=== PATIENT | female | born 1955 | race African-American/Black ===

== ENCOUNTER 2017-10-11 08:22 | Inpatient (IN) | payer MEDICARE, MEDICAID ==
[~2017-10-11] VITALS: Ht 162.6 cm; Wt 54.4 kg
[~2017-10-11 08:22] MED LIST: CIPRO250 MG ORAL; HYDROCHLOROTHIA25 MG PO; HYDROCODON-ACE1 EAC5 PO; LAMICTAL25 MG ORAL; METHOCARBAMOL750 MG PO; NORCO1 E1 ORAL; QUINAPRIL HCL10 MG PO; RESTORIL7.5 MG PO; SINGULAIR10 MG PO; VENTOLIN PO
[2017-10-11] MEDS ORDERED: LR 1000ml 1,000 ML IV STA (08:25)
[2017-10-11 08:28] VITALS: BP 116/95
--- NOTE | 2017-10-11 08:31 | Emergency Room Report ---
History of Present Illness General Chief Complaint: Diarrhea Source: Patient Present Illness HPI 62-year-old female brought in by EMS from home for 3 days of watery diarrhea, about 10 episodes a day. Intermittently associated abdominal pain. No associated vomiting, nausea, fever chills. No urinary complaints. States she was hospitalized in the last week at [facility] for seizures. She did not have diarrhea at the time. Denies taking antibiotics recently. States unable to keep water or food down in the last couple days. She has dressing to wound on abdomen, states had surgery "a while ago" but not sure why. 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 Hx Cerebrovascular Accident: Yes Hx Transient Ischemic Attacks: No Hx Dementia: No Hx Alzheimer's Disease: No Hx Parkinson's Disease: No Hx Meningitis: No Hx Encephalitis: No Hx Seizures: Yes Hx Epilepsy: No Hx Multiple Sclerosis: No Hx Cerebral Palsy: No Hx Amyotrophic Lat Sclerosis: No Hx Guillian-[place] Syndrome: No Hx Paralysis: No Hx Peripheral Neuropathy: No Hx Spinal Cord Injury: No Hx Head Trauma: No Hx Traumatic Brain Injury: No Hx Memory Loss: No Hx Concentration Difficulty: No Hx Speech Problem: No Hx Tremors: No Hx Vertigo: No Hx Dizziness: No Hx Syncope: No Hx Headaches: No Hx Aphasia: No Hx Dysphasia: No Hx Numbness: No Hx Weakness: Yes Hx Fatigue: No Hx Neurologic Surgery: No Hx Brain Shunt: No Review of Systems All Other Systems: negative except mentioned in HPI Physical Exam Vital Signs Date Time Temp Pulse Resp B/P (MAP) Pulse Ox O2 Delivery O2 Flow Rate FiO2 10/11/17 08:18 97.9 66 16 101/68 99 Room Air 97.9 Sp02 EP Interpretation: reviewed, normal General Appearance: normal inspection, well appearing, no apparent distress, alert, GCS 15, non-toxic, cachetic, thin Head: normocephalic, atraumatic Eyes: bilateral eye PERRL, bilateral eye EOMI ENT: normal ENT inspection, hearing grossly normal, normal pharynx, no angioedema, normal voice, TMs + canals normal, uvula midline, moist mucus membranes Neck: normal inspection, full range of motion, supple, thyroid normal, no meningismus, no bony tend Respiratory: normal inspection, lungs clear, normal breath sounds, no rhonchi, no respiratory distress, no retraction, no accessory muscle use, no wheezing, speaking full sentences Cardiovascular #1: regular rate, rhythm, no edema, no JVD, normal capillary refill Gastrointestinal: normal inspection, normal bowel sounds, non tender, soft, no mass, no peritonitis, non-distended, no guarding, no hernia, no pulsatile mass, other - Mid abdomen, old midline laparatomy scar noted. There is an old dressing on wound with old granulation tissue from 2 separate wounds seen. No erythema or active infection noted to area. Genitourinary: no CVA tenderness Musculoskeletal: normal inspection, back normal, normal range of motion, no calf tenderness, pelvis stable, Yessica's Sign negative Neurologic: normal inspection, alert, oriented x3, responsive, information technology program manager III-XII nml as tested, motor strength/tone normal, cerebellar normal, normal gait, speech normal Psychiatric: normal inspection, judgement/insight normal, mood/affect normal, no suicidal/homicidal ideation, no delusions Skin: normal inspection, normal color, no rash Lymphatic: normal inspection, no adenopathy Medical Decision Making Diagnostic Impression: Primary Impression: Diarrhea Qualified Codes: R19.7 - Diarrhea, unspecified Additional Impressions: Weakness FTT (failure to thrive) in adult Ileus Hyponatremia ER Course VSS, afebrile Alert and oriented No recent Abx, low suspicion for Cdiff No foreign travel Labs: Significant for hyponatremia CT: No acute process. ?SB distention in RLQ at anastamosis. ?early SBO but unlikely. (Only able to do non-contrast CT as not tolerating PO contrast and unable to place IV large enough for IV contrast; patient resistant to central line placement and I think the risk of potential line infection outweighs additional value we would obtain from IV contrast) Cdiff assay pending No additional diarrhea in ED Feels better Admit for FTT, weakness Med/surg Endorsed to Dr Rice for panel admit as patient is unassigned 10am EKG Diagnostic Results Rate: normal Rhythm: NSR ST Segments: no acute changes ASA given to the pt in ED: No Rhythm Strip Diag. Results EP Interpretation: yes Rate: 90 Rhythm: NSR, other - +PVCs Last Vital Signs Date Time Temp Pulse Resp B/P (MAP) Pulse Ox O2 Delivery O2 Flow Rate FiO2 10/11/17 08:18 97.9 66 16 101/68 99 Room Air 97.9 Status: improved Disposition: ADMITTED INPATIENT Condition: Serious ERICA VILLELA M.D. Oct 11, 2017 08:31
[2017-10-11 09:31] LABS: HEMATOCRIT 43.7 % (37.0-47.0); HEMOGLOBIN 14.3 G/DL (12.0-16.0); MEAN CORPUSCULAR VOLUME 81 FL (80-99); PLATELET COUNT 514 K/UL (150-450); RED BLOOD COUNT 5.39 M/UL (4.20-5.40); RED CELL DISTRIBUTION WIDTH 12.7 % (11.6-14.8); WHITE BLOOD COUNT 11.7 K/UL (4.8-10.8)
[2017-10-11 09:33] VITALS: BP 128/81
[2017-10-11] MEDS ORDERED: UNOBMED (09:34)
[2017-10-11 09:48] LABS: ALANINE AMINOTRANSFERASE 14 U/L (12-78); ALBUMIN/GLOBULIN RATIO 0.9 (1.0-2.7); ALKALINE PHOSPHATASE 220 U/L (46-116); ASPARTATE AMINO TRANSFERASE 22 U/L (15-37); BILIRUBIN,TOTAL 0.2 MG/DL (0.2-1.0); BLOOD UREA NITROGEN 69 mg/dL (7-18); CALCIUM 6.4 MG/DL (8.5-10.1); CREATININE 4.7 MG/DL (0.55-1.30)
--- NOTE | 2017-10-11 09:50 | Diagnostic Imaging Report ---
Indication: Abdominal pain, watery diarrhea for 3 days Technique: Spiral acquisitions obtained through the abdomen and pelvis. No oral contrast utilized, per emergency room physician request No IV contrast utilized, per referring physician request.. Multiplanar reconstructions were generated. Total dose length product 408.11 mGycm. CTDIvol(s) 8.8 mGy. Dose reduction achieved using automated exposure control Comparison: Contrast CT 09/12/2012 Findings: Lack of enteric contrast limits assessment of the GI tract. There is colonic diverticulosis. There is evidence of fairly extensive prior bowel surgery, with evidence of right hemicolectomy, ileocolic anastomosis as well as a small bowel anastomosis in the right lower quadrant. The small bowel at the level of the right lower quadrant anastomosis is dilated and fluid-filled, but the remainder the small bowel is nondilated. A modest amount of fluid is seen elsewhere within the small bowel Previously demonstrated broad-based ventral hernia is no longer evident, nor is the previously demonstrated enterocutaneous fistula and inflammatory change related to the hernia. There is a modest amount of fluid within the distal colon. No free intraperitoneal gas demonstrated. No free or loculated intraperitoneal fluid. The distal esophagus, stomach, duodenum are unremarkable. Lack of IV contrast limits assessment of the solid organs. Again demonstrated are multiple gallstones. The gallbladder is mildly distended, but there is no gallbladder wall thickening and no evidence of pericholecystic inflammation. The common bile duct is mildly dilated, measuring 9 mm in diameter. No definite downstream obstructive lesion is demonstrated. No gross focal liver abnormality. The pancreatic duct is mildly ectatic. The spleen is again demonstrated to be absent, likely postsurgically, with a small accessory splenule present. The left adrenal is diffusely bulky, as previously. The right adrenal is unremarkable. The left kidney demonstrates a tiny faint parenchymal calculus in the upper pole. There is mild right hydronephrosis, but no hydroureter. The right kidney demonstrates one or more subcentimeter low-attenuation lesions which are too small to characterize. No retroperitoneal or mesenteric mass or adenopathy. No pelvic mass or adenopathy. The uterus and adnexal structures are unremarkable. Again incidentally noted is an intramuscular lipoma within the right flank musculature. There are mild degenerative spondylosis changes. The included lung bases demonstrate minimal scarring or atelectasis on the right Impression: Limited assessment of the GI tract, due to lack of enteric contrast administration Modest amount of fluid within small bowel and the distal colon, possibly related to stated clinical history of diarrhea Evidence of extensive prior bowel surgery. Small bowel distention with fluid in the right lower quadrant at an anastomotic staple line. Most likely this is physiologic related to the prior surgery, early/partial small bowel obstruction not completely excludable but deemed much less likely No acute process otherwise Cholelithiasis Mildly dilated common bile duct, without definite downstream obstructive lesion. Most likely age related, but correlation with liver function tests is recommended Evidence of prior splenectomy. 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 Other findings as noted, including right flank musculature intramuscular lipoma, mild degenerative spondylosis, minimal basilar pulmonary parenchymal scarring or atelectasis The CT scanner at [facility] is accredited by the [employer] and the scans are performed using protocols designed to limit radiation exposure to as low as reasonably achievable to attain images of sufficient resolution adequate for diagnostic evaluation.
[2017-10-11] MEDS ORDERED: OMEPRAZOLE10 M1 ORAL (09:52)
[2017-10-11] MEDS ORDERED: AMBIEN5 MG ORAL (09:52)
--- NOTE | 2017-10-11 09:52 | Diagnostic Imaging Report ---
Indication: Pain, weakness Technique: One view of the chest Comparison: 01/20/2014 Findings: The lungs are hyperinflated There is blunting of the right costophrenic sulcus, suspicious for small amount of pleural fluid. The lungs and pleural spaces are otherwise clear. The heart size is normal. The aorta is calcified Impression: Hyperinflation, likely on the basis of COPD Small right pleural effusion
[2017-10-11 09:55] LABS: ANION GAP 32 mmol/L (5-15); CHLORIDE 78 MMOL/L (98-107)
[2017-10-11 09:59] LABS: CARBON DIOXIDE 8 MMOL/L (21-32); SODIUM 118 MMOL/L (136-145)
[2017-10-11] MEDS ORDERED: Nitroglycerin Subl 0.4mg tab SL PRN (10:15)
[2017-10-11] MEDS ORDERED: Metoclopramide 10mg/2ml Inj IVP ONE (10:15)
[2017-10-11] MEDS ORDERED: Mylanta II UD 30ml ORAL PRN (10:15)
[2017-10-11] MEDS ORDERED: Metoclopramide 10mg/2ml Inj IVP PRN (10:15)
--- NOTE | 2017-10-11 10:46 | Consultation ---
Consult Note Consult Note 62-year-old female brought in by EMS from home for 3 days of watery diarrhea, about 10 episodes a day. Intermittently associated abdominal pain. No associated vomiting, nausea, fever chills. No urinary complaints. States she was hospitalized in the last week at [facility] for seizures. She did not have diarrhea at the time. Denies taking antibiotics recently. States unable to keep water or food down in the last couple days. She has dressing to wound on abdomen, states had surgery "a while ago" but not sure why. 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 Assessment/Plan Acute Renal Failure- Intractible Diarrhea Was on HCTZ and Stan inhibitor COPD Plan; Duarte- NS IV fluid 2D Echo- THANG - Urine studies- MARIELA PA Oct 11, 2017 10:46
[2017-10-11] MEDS ORDERED: D5 1/2NS 1,000 ML IV SCH (11:00)
[2017-10-11] MEDS ORDERED: D5NS 1,000 ML IV SCH (11:00)
[2017-10-11] MEDS ORDERED: LORazepam Inj 2mg/ml 1ml IV ONE (11:45)
[2017-10-11] MEDS ORDERED: Promethazine HCl 25 MG in NS 55 ML IV SCH (12:00)
[2017-10-11] MEDS ORDERED: Heparin 5000 units/ml inj SUBQ SCH ×2 (12:00→21:00)
[2017-10-11] MEDS ORDERED: Promethazine HCl 25 MG in NS 55 ML IV PRN (12:00)
[2017-10-11] MEDS ORDERED: LORazepam Inj 2mg/ml 1ml IV PRN (12:00)
[2017-10-11] MEDS: Sodium Bicarbonate 150 ML in D5W 1000ml 1,000 ML IV SCH ×2 (12:06→23:30)
[2017-10-11] MEDS: Morphine Sulfate 4mg/ml Inj IVP PRN ×2 (12:19→20:41)
[2017-10-11 13:50] VITALS: BP 117/73
--- NOTE | 2017-10-11 15:50 | Diagnostic Imaging Report ---
Indication: Abdominal pain, abnormal lipase, abnormal alkaline phosphatase, abnormal kidney function Technique: Mishra-scale and duplex images of the upper abdomen were obtained Comparison: CT scan of earlier the same day ultrasound of 01/22/2014 Findings: Gallbladder demonstrates gallstones. No wall thickening nor pericholecystic fluid Sonographic Ibanez's sign is negative. Common bile duct measures 11 mm in diameter. No intrahepatic biliary ductal dilatation. Liver demonstrates normal echogenicity, no focal abnormality. Portal vein and hepatic veins are patent. There is prominent periportal fat Pancreas is unremarkable. The spleen is surgically absent Left kidney measures 10.2 cm in length. Right kidney measures 10.2 cm length. Both kidneys demonstrate normal echogenicity. There is no hydronephrosis. There are small bilateral renal cysts . Non-aneurysmal abdominal aorta . The bladder is distended. Bladder volume calculated at 300 mL. Patient was noncommunicative, unable to follow instructions to void Impression: Cholelithiasis, also previously described Mild extra hepatic biliary ductal dilatation, also reported on recent CT scan. May be baseline for this patient but downstream obstruction not completely excludable. Correlate with liver function tests, consider MRCP if clinically indicated Distended bladder Prior splenectomy Incidental finding bilateral renal cysts
--- NOTE | 2017-10-11 15:59 | GI Initial Consult Note ---
History of Present Illness General Date patient seen: Oct 11, 2017 Time patient seen: 15:58 Reason for Hospitalization: Diarrhea Referring physician: YVONNE JERRY Reason for Consultation: DIARRHEA Present Illness HPI 62-year-old female brought in by EMS from home for 3 days of watery diarrhea, about 10 episodes a day. Intermittently associated abdominal pain. No associated vomiting, nausea, fever chills. No urinary complaints. States she was hospitalized in the last week at [facility] for seizures. She did not have diarrhea at the time. Denies taking antibiotics recently. States unable to keep water or food down in the last couple days. She has dressing to wound on abdomen, states had surgery "a while ago" but not sure why. GI consulted for persistent diarrhea. ROS limited, patient is a very poor historian. Unable to recall any past events. C/o of generalized weakness and fatigue. Is not sure if she has had any weight loss in the past month. Labs reviewed shown to have hyponatremia, possible acute renal failure, mild leukocytosis and elevated alkaline phosphatase. CT AP reviewed showed to have CBD dilation of 9mm, a follow up abdominal U/S was performed shown to have cholelithiasis, also previously described. Mild extra hepatic biliary ductal dilatation, also reported on recent CT scan. May be baseline for this patient but downstream obstruction not completely excludable. Unknown history of endoscopy / colonoscopy. 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 Hx Cerebrovascular Accident: Yes Hx Seizures: Yes Hx Weakness: Yes Home Meds Active Scripts Lamotrigine* (LAMICTAL*) 25 Mg Tab, 50 MG ORAL BIDLS, #60 TAB Prov:Yvonne Rice MD 01/23/14 Reported Medications Zolpidem Tartrate* (AMBIEN*) 5 Mg Tablet, 5 MG ORAL BEDTIME PRN for Insomnia, TAB 10/11/17 Omeprazole (OMEPRAZOLE) 10 Mg Capsule.dr, 10 MG ORAL DAILY, #30 CAP 0 Refills 10/11/17 Unable to Obtain Medications (UNABLE TO OBTAIN MEDS) 1 Ea Ea 10/11/17 Acetaminophen/Hydrocodone ([place] 7.5-325 Tablet) 1 Ea Tab, 1 TAB ORAL Q4H PRN for For Pain, #60 TAB 0 Refills 01/23/14 Albuterol Sulfate (VENTOLIN) 5 Mg/1 Ml Solution, 5 MG PO 09/12/12 Methocarbamol* (METHOCARBAMOL*) 750 Mg Tablet, 750 MG PO QHS, #20 TAB 09/12/12 Hydrochlorothiazide* (HYDROCHLOROTHIAZIDE*) 25 Mg Tablet, 25 MG PO DAILY, #30 TAB 09/12/12 Hydrocodone/Acetaminophen 7.5-500 (HYDROCODON-ACETAMINOPH 7.5-500) 1 Each Tablet , 1 EACH PO 09/12/12 Quinapril Hcl (QUINAPRIL HCL) 10 Mg Tablet, 10 MG PO 09/12/12 Temazepam* (RESTORIL*) 7.5 Mg Capsule, 7.5 MG PO QHS, #10 CAP Take 1 capsule by mouth aat bedtime. 09/12/12 Montelukast Sodium* (SINGULAIR*) 10 Mg Tablet, 10 MG PO DAILY, TAB Take one tablet by mouth daily 09/12/12 Med list reviewed/reconciled: Yes Allergies: Coded Allergies: No Known Allergies (Unverified , 09/12/12) Patient History Limited by: medical condition History Provided By: Patient, Medical Record Social History Narrative unknown Review of Systems All Other Systems: limited Physical Exam Vital Signs Date Time Temp Pulse Resp B/P (MAP) Pulse Ox O2 Delivery O2 Flow Rate FiO2 10/11/17 08:18 97.9 66 16 101/68 99 Room Air 97.9 Sp02 EP Interpretation: reviewed, normal Labs Laboratory Tests Test 10/11/17 09:10 10/11/17 10:40 White Blood Count 11.7 K/UL (4.8-10.8) H Red Blood Count 5.39 M/UL (4.20-5.40) Hemoglobin 14.3 G/DL (12.0-16.0) Hematocrit 43.7 % (37.0-47.0) Mean Corpuscular Volume 81 FL (80-99) Mean Corpuscular Hemoglobin 26.5 PG (27.0-31.0) L Mean Corpuscular Hemoglobin Concent 32.6 G/DL (32.0-36.0) Red Cell Distribution Width 12.7 % (11.6-14.8) Platelet Count 514 K/UL (150-450) H Mean Platelet Volume 6.1 FL (6.5-10.1) L Neutrophils (%) (Auto) % (45.0-75.0) Lymphocytes (%) (Auto) % (20.0-45.0) Monocytes (%) (Auto) % (1.0-10.0) Eosinophils (%) (Auto) % (0.0-3.0) Basophils (%) (Auto) % (0.0-2.0) Differential Total Cells Counted 100 Neutrophils % (Manual) 90 % (45-75) H Lymphocytes % (Manual) 7 % (20-45) L Monocytes % (Manual) 3 % (1-10) Eosinophils % (Manual) 0 % (0-3) Basophils % (Manual) 0 % (0-2) Band Neutrophils 0 % (0-8) Platelet Estimate Adequate Platelet Morphology Normal Red Blood Cell Morphology Normal Sodium Level 118 MMOL/L (136-145) *L Potassium Level 4.0 MMOL/L (3.5-5.1) Chloride Level 78 MMOL/L (98-107) L Carbon Dioxide Level 8 MMOL/L (21-32) *L Anion Gap 32 mmol/L (5-15) H Blood Urea Nitrogen 69 mg/dL (7-18) H Creatinine 4.7 MG/DL (0.55-1.30) H Estimat Glomerular Filtration Rate 11.4 mL/min (>60) Glucose Level 121 MG/DL (74-106) H Osmolality 270 mOsm/kg (297-317) L Calcium Level 6.4 MG/DL (8.5-10.1) L Total Bilirubin 0.2 MG/DL (0.2-1.0) Aspartate Amino Transf (AST/SGOT) 22 U/L (15-37) Alanine Aminotransferase (ALT/SGPT) 14 U/L (12-78) Alkaline Phosphatase 220 U/L (46-116) H Troponin I 0.006 ng/mL (0.000-0.056) C-Reactive Protein, Quantitative 1.4 mg/dL (0.00-0.90) H Total Protein 8.7 G/DL (6.4-8.2) H Albumin 4.0 G/DL (3.4-5.0) Globulin 4.7 g/dL Albumin/Globulin Ratio 0.9 (1.0-2.7) L Lipase 117 U/L (73-393) Free Thyroxine 1.85 NG/DL (0.76-1.46) H Free Triiodothyronine 2.8 pg/mL (2.3-4.2) Cortisol Pending Arterial Blood pH 7.142 (7.350-7.450) Arterial Blood Partial Pressure CO2 24.0 mmHg (35.0-45.0) *L Arterial Blood Partial Pressure O2 105.6 mmHg (75.0-100.0) H Arterial Blood HCO3 8.0 mmol/L (22.0-26.0) L Arterial Blood Oxygen Saturation 97.4 % (92.0-98.0) Arterial Blood Base Excess -19.2 Satya Test Positive General Appearance: well appearing, no apparent distress, alert, thin Head: normocephalic EENT: PERRL/EOMI, normal ENT inspection Neck: supple Respiratory: normal breath sounds, no respiratory distress Cardiovascular: normal rate Gastrointestinal: normal inspection, non tender, soft, normal bowel sounds, non -distended Rectal: deferred Genitourinary: no CVA tenderness Musculoskeletal: normal inspection, back normal Neurologic: alert, responsive Skin: normal inspection, normal color, no rash, warm/dry, palpation normal, well hydrated Lymphatic: normal inspection, no adenopathy Current Medications Current Medications Medications (Trade) Dose Ordered Sig/Martha Route PRN Reason Start Time Stop Time Status Last Admin Dose Admin Acetaminophen (Tylenol) 650 mg Q4H PRN ORAL fever 10/11/17 10:15 11/10/17 10:14 Dextrose (Dextrose 50%) 25 ml STAT PRN IV Hypoglycemia 10/11/17 11:30 11/10/17 11:29 Dextrose (Dextrose 50%) 50 ml STAT PRN IV Hypoglycemia 10/11/17 10:15 11/10/17 10:14 Diphenhydramine HCl (Benadryl) 25 mg Q6H PRN ORAL Itching/Pruritis 10/11/17 10:15 11/10/17 10:14 Heparin Sodium (Porcine) (Heparin 5000 units/ml) 5,000 units EVERY 12 HOURS SUBQ 10/11/17 21:00 11/10/17 20:59 Lamotrigine (LaMICtal) 50 mg BIDLS ORAL 10/11/17 11:30 11/10/17 11:29 10/11/17 12:18 Lorazepam (Ativan 2mg/ml 1ml) 1 mg Q4H PRN IV agitation 10/11/17 12:00 10/18/17 11:59 Morphine Sulfate (Morphine Sulfate) 2 mg EVERY 4 HOURS PRN IVP severe Pain (Pain Scale 7-10) 10/11/17 11:00 10/18/17 10:59 10/11/17 12:19 Nitroglycerin (Ntg) 0.4 mg Q5M X 3 DOSES PRN SL Prn Chest Pain 10/11/17 10:15 11/10/17 10:14 Ondansetron HCl (Zofran) 4 mg Q6H PRN IVP Nausea & Vomiting 10/11/17 10:15 11/10/17 10:14 Pantoprazole (Protonix) 40 mg Q12HR IV 10/11/17 21:00 11/11/17 08:59 Polyethylene Glycol (Miralax) 17 gm HSPRN PRN ORAL Constipation 10/11/17 21:00 11/10/17 20:59 Promethazine HCl 25 mg/Sodium Chloride 56 ml @ 112 mls/hr Q8H PRN IV refractory nausea 10/11/17 12:00 11/10/17 11:59 Sodium Bicarbonate 150 ml/Dextrose 1,150 ml @ 100 mls/hr [id number] IV 10/11/17 12:00 11/10/17 11:59 10/11/17 12:06 Temazepam (Restoril) 15 mg HSPRN PRN ORAL Insomnia 10/11/17 21:00 10/18/17 20:59 GI: Plan Problems: (1) Renal insufficiency (2) Dehydration (3) Severe malnutrition (4) Diarrhea (5) FTT (failure to thrive) in adult (6) Weakness Plan CT AP and abdominal U/S reviewed >> will defer MRCP given no transaminitis elevated alk phos most likely due to renal insufficiency electrolyte correction send for stool studies, cdiff adv to renal soft diet, push PO dc ppi r/o cdiff, add H2B prn transfusions fu utox fu labs Discussed with Dr. Sanchez. Thank you for this patient referral, we will follow. Vlaentina Matos N.P. Oct 11, 2017 15:59
[2017-10-11 18:36] LABS: APPEARANCE,URINE CLEAR; BILIRUBIN, URINE NEGATIVE (NEGATIVE); COLOR,URINE PALE YELLOW; GLUCOSE, URINE (UA) 1+ (NEGATIVE); KETONES,URINE NEGATIVE (NEGATIVE); LEUKOCYTE ESTERASE ,URINE 2+ (NEGATIVE); NITRITE,URINE NEGATIVE (NEGATIVE); PH,URINE 5 (4.5-8.0); PROTEIN,URINE 3+ (NEGATIVE); UROBILINOGEN,URINE NORMAL MG/DL (0.0-1.0)
--- NOTE | 2017-10-11 20:44 | History and Physical ---
History of Present Illness General Date patient seen: Oct 12, 2017 Reason for Hospitalization: Diarrhea Present Illness HPI HPI 62-year-old female brought in by EMS from home for 3 days of watery diarrhea, about 10 episodes a day, associated abdominal pain. No associated vomiting, nausea, fever chills. No urinary complaints. Denies taking antibiotics recently. States unable to keep water or food down in the last couple days. She was found to be in renal failure with severe acidosis and admitted to ICU for further management. Allergies: Coded Allergies: No Known Allergies (Unverified , 09/12/12) Medication History Scheduled Hydrochlorothiazide* (Hydrochlorothiazide*), 25 MG PO DAILY, (Reported) Lamotrigine* (Lamictal*), 50 MG ORAL BIDLS Methocarbamol* (Methocarbamol*), 750 MG PO QHS, (Reported) Montelukast Sodium* (Singulair*), 10 MG PO DAILY, (Reported) Omeprazole (Omeprazole), 10 MG ORAL DAILY, (Reported) Temazepam* (Restoril*), 7.5 MG PO QHS, (Reported) Scheduled PRN Acetaminophen/Hydrocodone ([place] 7.5-325 Tablet), 1 TAB ORAL Q4H PRN for For Pain, (Reported) Zolpidem Tartrate* (Ambien*), 5 MG ORAL BEDTIME PRN for Insomnia, (Reported) Miscellaneous Medications Albuterol Sulfate (Ventolin), 5 MG PO, (Reported) Hydrocodone/Acetaminophen 7.5-500 (Hydrocodon-Acetaminoph 7.5-500), 1 EACH PO, ( Reported) Quinapril Hcl (Quinapril Hcl), 10 MG PO, (Reported) Unable to Obtain Medications (Unable To Obtain Meds), (Reported) Patient History Healthcare decision maker Resuscitation status Full Code Advanced Directive on File No Past Medical/Surgical History Past Medical/Surgical History: (1) Seizure disorder (2) Hypertension (3) Anemia (4) Severe malnutrition (5) Dehydration Review of Systems All Other Systems: negative except mentioned in HPI Physical Exam General Appearance: cachetic Lines, tubes and drains: peripheral HEENT: normocephalic, atraumatic Neck: non-tender, normal alignment Respiratory/Chest: chest wall non-tender, lungs clear Breasts: no masses Cardiovascular/Chest: normal peripheral pulses Abdomen: normal bowel sounds Genitourinary/Rectal: normal genital exam Extremities: normal range of motion Neurologic: cadence specialists II-XII grossly normal Lymphatic: anterior cervical Last 24 Hour Vital Signs Date Time Temp Pulse Resp B/P (MAP) Pulse Ox O2 Delivery O2 Flow Rate FiO2 10/11/17 16:00 87 10/11/17 13:50 96.8 92 16 117/73 96 Room Air 96.8 10/11/17 12:30 97.9 86 16 128/81 99 Room Air 208.2 10/11/17 12:19 97.9 10/11/17 09:33 97.9 86 16 128/81 99 Room Air 97.9 10/11/17 08:28 97.9 88 16 116/95 99 Room Air 97.9 10/11/17 08:18 97.9 66 16 101/68 99 Room Air 97.9 Laboratory Tests Test 10/11/17 09:10 10/11/17 10:40 10/11/17 18:00 White Blood Count 11.7 K/UL (4.8-10.8) H Red Blood Count 5.39 M/UL (4.20-5.40) Hemoglobin 14.3 G/DL (12.0-16.0) Hematocrit 43.7 % (37.0-47.0) Mean Corpuscular Volume 81 FL (80-99) Mean Corpuscular Hemoglobin 26.5 PG (27.0-31.0) L Mean Corpuscular Hemoglobin Concent 32.6 G/DL (32.0-36.0) Red Cell Distribution Width 12.7 % (11.6-14.8) Platelet Count 514 K/UL (150-450) H Mean Platelet Volume 6.1 FL (6.5-10.1) L Neutrophils (%) (Auto) % (45.0-75.0) Lymphocytes (%) (Auto) % (20.0-45.0) Monocytes (%) (Auto) % (1.0-10.0) Eosinophils (%) (Auto) % (0.0-3.0) Basophils (%) (Auto) % (0.0-2.0) Differential Total Cells Counted 100 Neutrophils % (Manual) 90 % (45-75) H Lymphocytes % (Manual) 7 % (20-45) L Monocytes % (Manual) 3 % (1-10) Eosinophils % (Manual) 0 % (0-3) Basophils % (Manual) 0 % (0-2) Band Neutrophils 0 % (0-8) Platelet Estimate Adequate Platelet Morphology Normal Red Blood Cell Morphology Normal Sodium Level 118 MMOL/L (136-145) *L Potassium Level 4.0 MMOL/L (3.5-5.1) Chloride Level 78 MMOL/L (98-107) L Carbon Dioxide Level 8 MMOL/L (21-32) *L Anion Gap 32 mmol/L (5-15) H Blood Urea Nitrogen 69 mg/dL (7-18) H Creatinine 4.7 MG/DL (0.55-1.30) H Estimat Glomerular Filtration Rate 11.4 mL/min (>60) Glucose Level 121 MG/DL (74-106) H Osmolality 270 mOsm/kg (297-317) L Calcium Level 6.4 MG/DL (8.5-10.1) L Total Bilirubin 0.2 MG/DL (0.2-1.0) Aspartate Amino Transf (AST/SGOT) 22 U/L (15-37) Alanine Aminotransferase (ALT/SGPT) 14 U/L (12-78) Alkaline Phosphatase 220 U/L (46-116) H Troponin I 0.006 ng/mL (0.000-0.056) C-Reactive Protein, Quantitative 1.4 mg/dL (0.00-0.90) H Total Protein 8.7 G/DL (6.4-8.2) H Albumin 4.0 G/DL (3.4-5.0) Globulin 4.7 g/dL Albumin/Globulin Ratio 0.9 (1.0-2.7) L Lipase 117 U/L (73-393) Free Thyroxine 1.85 NG/DL (0.76-1.46) H Free Triiodothyronine 2.8 pg/mL (2.3-4.2) Cortisol Pending Arterial Blood pH 7.142 (7.350-7.450) Arterial Blood Partial Pressure CO2 24.0 mmHg (35.0-45.0) *L Arterial Blood Partial Pressure O2 105.6 mmHg (75.0-100.0) H Arterial Blood HCO3 8.0 mmol/L (22.0-26.0) L Arterial Blood Oxygen Saturation 97.4 % (92.0-98.0) Arterial Blood Base Excess -19.2 Satya Test Positive Urine Color Pale yellow Urine Appearance Clear Urine pH 5 (4.5-8.0) Urine Specific [place] 1.010 (1.005-1.035) Urine Protein 3+ (NEGATIVE) H Urine Glucose (UA) 1+ (NEGATIVE) H Urine Ketones Negative (NEGATIVE) Urine Occult Blood 2+ (NEGATIVE) H Urine Nitrite Negative (NEGATIVE) Urine Bilirubin Negative (NEGATIVE) Urine Urobilinogen Normal MG/DL (0.0-1.0) Urine Leukocyte Esterase 2+ (NEGATIVE) H Urine RBC 2-4 /HPF (0 - 2) H Urine WBC 2-4 /HPF (0 - 2) Urine Squamous Epithelial Cells Few /LPF (NONE/OCC) Urine Amorphous Sediment Few /LPF (NONE) H Urine Bacteria Few /HPF (NONE) Urine Osmolality 282 mOsm/kg (429-449) L Urine Random Sodium 66 mmol/L (20-110) Urine Opiates Screen Negative (NEGATIVE) Urine Barbiturates Screen Negative (NEGATIVE) Phencyclidine (PCP) Screen Negative (NEGATIVE) Urine Amphetamines Screen Negative (NEGATIVE) Urine Benzodiazepines Screen Negative (NEGATIVE) Urine Cocaine Screen Positive (NEGATIVE) H Urine Marijuana (THC) Screen Negative (NEGATIVE) Height (Feet): 5 Height (Inches): 4.00 Weight (Pounds): 120 Medications Current Medications Medications (Trade) Dose Ordered Sig/Martha Route PRN Reason Start Time Stop Time Status Last Admin Dose Admin Acetaminophen (Tylenol) 650 mg Q4H PRN ORAL fever 10/11/17 10:15 11/10/17 10:14 Dextrose (Dextrose 50%) 25 ml STAT PRN IV Hypoglycemia 10/11/17 11:30 11/10/17 11:29 Dextrose (Dextrose 50%) 50 ml STAT PRN IV Hypoglycemia 10/11/17 10:15 11/10/17 10:14 Diphenhydramine HCl (Benadryl) 25 mg Q6H PRN ORAL Itching/Pruritis 10/11/17 10:15 11/10/17 10:14 Famotidine (Pepcid I.v.) 20 mg Q12HR IVP 10/11/17 21:00 11/10/17 20:59 10/11/17 20:40 Heparin Sodium (Porcine) (Heparin 5000 units/ml) 5,000 units EVERY 12 HOURS SUBQ 10/11/17 21:00 11/10/17 20:59 10/11/17 20:40 Lamotrigine (LaMICtal) 50 mg BIDLS ORAL 10/11/17 11:30 11/10/17 11:29 10/11/17 17:10 Lorazepam (Ativan 2mg/ml 1ml) 1 mg Q4H PRN IV agitation 10/11/17 12:00 10/18/17 11:59 Morphine Sulfate (Morphine Sulfate) 2 mg EVERY 4 HOURS PRN IVP severe Pain (Pain Scale 7-10) 10/11/17 11:00 10/18/17 10:59 10/11/17 20:41 Nitroglycerin (Ntg) 0.4 mg Q5M X 3 DOSES PRN SL Prn Chest Pain 10/11/17 10:15 11/10/17 10:14 Ondansetron HCl (Zofran) 4 mg Q6H PRN IVP Nausea & Vomiting 10/11/17 10:15 11/10/17 10:14 Polyethylene Glycol (Miralax) 17 gm HSPRN PRN ORAL Constipation 10/11/17 21:00 11/10/17 20:59 Promethazine HCl 25 mg/Sodium Chloride 56 ml @ 112 mls/hr Q8H PRN IV refractory nausea 10/11/17 12:00 11/10/17 11:59 Sodium Bicarbonate 150 ml/Dextrose 1,150 ml @ 100 mls/hr [id number] IV 10/11/17 12:00 11/10/17 11:59 10/11/17 12:06 Temazepam (Restoril) 15 mg HSPRN PRN ORAL Insomnia 10/11/17 21:00 10/18/17 20:59 Assessment/Plan Problem List: (1) ATN (acute tubular necrosis) ICD Codes: N17.0 - Acute kidney failure with tubular necrosis SNOMED: 05488638 (2) Hyponatremia ICD Codes: E87.1 - Hypo-osmolality and hyponatremia SNOMED: 67057903 (3) Metabolic acidosis ICD Codes: E87.2 - Acidosis SNOMED: 63123163 (4) Dehydration ICD Codes: E86.0 - Dehydration SNOMED: 12950446 (5) Severe malnutrition ICD Codes: E43 - Unspecified severe protein-calorie malnutrition SNOMED: 73450705 Assessment/Plan IV fluids Bicarb drip Renal and GI evaluation check electrolytes renal studies check stool for parasites, GI evaluation. dvt prophylaxis home meds reviewed. Dinesh Rice MD Oct 11, 2017 20:44
[2017-10-11 21:00] VITALS: BP 119/76
[2017-10-11] MEDS ORDERED: Pantoprazole Inj IV SCH (21:00)
[2017-10-11] MEDS ORDERED: Miralax 17gm pkt ORAL PRN (21:00)
--- NOTE | 2017-10-11 21:00 | Cardiology Report ---
APPROVED REPORT EXAM: Two-dimensional and M-mode echocardiogram with Doppler and color Doppler. INDICATION Congestive Heart Failure M-Mode DIMENSIONS IVSd1.0 (0.7-1.1cm)Left Atrium (MM)2.2 (1.6-4.0cm) LVDd3.3 (3.5-5.6cm)Aortic Root2.2 (2.0-3.7cm) PWd1.1 (0.7-1.1cm)Aortic Cusp Exc.1.5 (1.5-2.0cm) LVDs2.4 (2.5-4.0cm) PWs1.4 cm Normal left ventricular chamber size, systolic function and wall motion to extent visualized. Left ventricular ejection fraction estimated to be 60 %. Study quality precludes accurate assessment of regional wall motion. Mild left ventricular hypertrophy by 2-D. No evidence of pericardial effusion. All other cardiac chamber sizes are within normal limits. Focal aortic valve sclerosis with adequate cusp excursion. Thickened mitral valve leaflets with normal excursion. Mitral annulus and aortic root calcification. Normal pulmonic valve structure. Normal tricuspid valve structure. IVC at normal size with physiologic collapse. A color flow and spectral Doppler study was performed and revealed: Trace aortic regurgitation. Trace mitral regurgitation. Mitral diastolic velocities suggest reduced left ventricular relaxation c/w mild LV diastolic dysfunction (Grade I). Trace to mild tricuspid regurgitation. Tricuspid systolic velocities suggests peak right ventricular systolic pressure of 33 mmHg. Trace pulmonic regurgitation present.
[2017-10-12] VITALS (15 sets, daily range): BP systolic 104–130; BP diastolic 60–84
[2017-10-12] MEDS ORDERED: Sodium Bicarbonate 8.4% 50ml Inj ONE (02:12)
[2017-10-12] MEDS: Sodium Bicarbonate 150 ML in D5W 1000ml 1,000 ML IV SCH (02:53)
[2017-10-12] MEDS ORDERED: Sodium Bicarbonate 150 ML in D5W 1000ml 1,000 ML IV SCH ×3 (04:30→12:30)
[2017-10-12] MEDS ORDERED: Nitroglycerin Subl 0.4mg tab SL PRN ×2 (05:30→15:00)
[2017-10-12 06:04] LABS: HEMATOCRIT 37.8 % (37.0-47.0); HEMOGLOBIN 13.4 G/DL (12.0-16.0); LYMPHOCYTES % (AUTO) 8.7 % (20.0-45.0); MEAN CORPUSCULAR VOLUME 79 FL (80-99); MONOCYTES % (AUTO) 8.2 % (1.0-10.0); NEUTROPHILS % (AUTO) 82.1 % (45.0-75.0); PLATELET COUNT 401 K/UL (150-450); RED BLOOD COUNT 4.77 M/UL (4.20-5.40); RED CELL DISTRIBUTION WIDTH 12.3 % (11.6-14.8); WHITE BLOOD COUNT 10.1 K/UL (4.8-10.8)
[2017-10-12 07:26] LABS: ALANINE AMINOTRANSFERASE 14 U/L (12-78); ALBUMIN 3.5 G/DL (3.4-5.0); ALBUMIN/GLOBULIN RATIO 0.8 (1.0-2.7); ALKALINE PHOSPHATASE 183 U/L (46-116); AMYLASE 38 U/L (25-115); ANION GAP 30 mmol/L (5-15); ASPARTATE AMINO TRANSFERASE 21 U/L (15-37); BILIRUBIN,TOTAL 0.2 MG/DL (0.2-1.0); BLOOD UREA NITROGEN 88 mg/dL (7-18); CALCIUM 5.6 MG/DL (8.5-10.1); CARBON DIOXIDE 9 MMOL/L (21-32); CHLORIDE 79 MMOL/L (98-107); CHOLESTEROL 128 MG/DL (< 200); CREATININE 5.8 MG/DL (0.55-1.30); HDL CHOLESTEROL 50 MG/DL (40-60); POTASSIUM 3.7 MMOL/L (3.5-5.1); SODIUM 118 MMOL/L (136-145); TRIGLYCERIDES 94 MG/DL (30-150)
[2017-10-12 07:46] LABS: CREATINE KINASE 141 U/L (26-308); GAMMA GLUTAMYL TRANSPEPTIDASE 101 U/L (5-85); PHOSPHORUS 5.3 MG/DL (2.5-4.9)
[2017-10-12] MEDS ORDERED: LORazepam Inj 2mg/ml 1ml IV PRN ×2 (08:00→15:00)
[2017-10-12] MEDS ORDERED: Pantoprazole Inj IV SCH (09:00)
[2017-10-12] MEDS ORDERED: Heparin 5000 units/ml inj SUBQ SCH (09:00)
[2017-10-12] MEDS ORDERED: Morphine Sulfate 4mg/ml Inj IVP PRN (09:00)
--- NOTE | 2017-10-12 10:59 | Pulmonolgy Critical Care Note ---
Critical Care - Asmt/Plan Problems: (1) ATN (acute tubular necrosis) (2) Hyponatremia (3) Metabolic acidosis (4) Hypertension (5) Seizure disorder (6) Anemia (7) Severe malnutrition Respiratory: monitor respiratory rate, adjust FIO2, CXR Cardiac: continue to monitor HR/BP Renal: F/U I&O, keep IV fluid Infectious Disease: check cultures Gastrointestinal: hold feedings, other - reglan helpin with vomiting Endocrine: monitor blood sugar, continue sliding scale insulin Hematologic: monitor H/H, transfuse if hgb<8.5 Neurologic: PRN Ativan, keep patient comfortable Affect: PRN ativan Prophylaxis: Protonix Notes Reviewed: renal, GI Discussed with: 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, 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, 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 - Objective Last 24 Hour Vital Signs Date Time Temp Pulse Resp B/P (MAP) Pulse Ox O2 Delivery O2 Flow Rate FiO2 10/12/17 10:19 99 Nasal Cannula 2.0 28 10/12/17 10:18 Nasal Cannula 2.0 28 10/12/17 10:00 78 15 108/62 100 Nasal Cannula 2.0 10/12/17 09:00 79 15 116/60 100 Nasal Cannula 2.0 10/12/17 08:00 78 10/12/17 08:00 70 15 115/60 100 Nasal Cannula 2.0 10/12/17 07:00 97.8 75 14 118/66 100 Nasal Cannula 2.0 97.8 10/12/17 06:00 73 14 104/61 100 Room Air 10/12/17 05:00 77 10/12/17 05:00 95.2 77 14 122/84 97 Room Air 95.2 10/12/17 04:00 97.0 85 20 118/69 92 Room Air 97.0 10/12/17 04:00 82 10/12/17 00:00 97.0 72 20 128/72 99 Room Air 97.0 10/11/17 23:42 88 10/11/17 21:00 97.3 98 20 119/76 95 Room Air 97.3 10/11/17 20:00 97 10/11/17 16:00 87 10/11/17 13:50 96.8 92 16 117/73 96 Room Air 96.8 10/11/17 12:30 97.9 86 16 128/81 99 Room Air 208.2 10/11/17 12:19 97.9 Status: awake Condition: critical Neck: full ROM Lungs: chest wall tender Heart: HR/BP stable Abdomen: soft, active bowel sounds Extremities: no C/C/E, edema Decubiti: location Micro: Microbiology Date/Time Source Procedure Growth Status 10/11/17 10:00 Stool Clostridium difficile Toxin Assay - Final Complete Accucheck: 121 Critical Care - Subjective ROS Limited/Unobtainable: Yes Interval Events: chronically ill looking, answers to simple questions oriented to self and location FI02: 28 I&O: Intake and Output 10/11/17 10/12/17 19:00 07:00 Intake Total 1000 ml 150 ml Output Total 250 ml 40 ml Balance 750 ml 110 ml Intake Oral 0 ml IV Total 1000 ml 150 ml Output Urine Total 250 ml 40 ml CXR: COPd Labs: Laboratory Tests Test 10/11/17 18:00 10/12/17 03:45 10/12/17 05:40 10/12/17 08:45 Urine Color Pale yellow Urine Appearance Clear Urine pH 5 (4.5-8.0) Urine Specific [place] 1.010 (1.005-1.035) Urine Protein 3+ (NEGATIVE) H Urine Glucose (UA) 1+ (NEGATIVE) H Urine Ketones Negative (NEGATIVE) Urine Occult Blood 2+ (NEGATIVE) H Urine Nitrite Negative (NEGATIVE) Urine Bilirubin Negative (NEGATIVE) Urine Urobilinogen Normal MG/DL (0.0-1.0) Urine Leukocyte Esterase 2+ (NEGATIVE) H Urine RBC 2-4 /HPF (0 - 2) H Urine WBC 2-4 /HPF (0 - 2) Urine Squamous Epithelial Cells Few /LPF (NONE/OCC) Urine Amorphous Sediment Few /LPF (NONE) H Urine Bacteria Few /HPF (NONE) Urine Osmolality 282 mOsm/kg (429-449) L Urine Random Sodium 66 mmol/L (20-110) Urine Opiates Screen Negative (NEGATIVE) Urine Barbiturates Screen Negative (NEGATIVE) Phencyclidine (PCP) Screen Negative (NEGATIVE) Urine Amphetamines Screen Negative (NEGATIVE) Urine Benzodiazepines Screen Negative (NEGATIVE) Urine Cocaine Screen Positive (NEGATIVE) H Urine Marijuana (THC) Screen Negative (NEGATIVE) Arterial Blood pH 7.158 (7.350-7.450) 7.348 (7.350-7.450) Arterial Blood Partial Pressure CO2 21.1 mmHg (35.0-45.0) *L 22.3 mmHg (35.0-45.0) *L Arterial Blood Partial Pressure O2 105.0 mmHg (75.0-100.0) H 154.6 mmHg (75.0-100.0) H Arterial Blood HCO3 7.3 mmol/L (22.0-26.0) L 12.0 mmol/L (22.0-26.0) L Arterial Blood Oxygen Saturation 96.7 % (92.0-98.0) 98.8 % (92.0-98.0) H Arterial Blood Base Excess -19.4 -11.6 Satya Test Positive Positive White Blood Count 10.1 K/UL (4.8-10.8) Red Blood Count 4.77 M/UL (4.20-5.40) Hemoglobin 13.4 G/DL (12.0-16.0) Hematocrit 37.8 % (37.0-47.0) Mean Corpuscular Volume 79 FL (80-99) L Mean Corpuscular Hemoglobin 28.0 PG (27.0-31.0) Mean Corpuscular Hemoglobin Concent 35.3 G/DL (32.0-36.0) Red Cell Distribution Width 12.3 % (11.6-14.8) Platelet Count 401 K/UL (150-450) Mean Platelet Volume 6.3 FL (6.5-10.1) L Neutrophils (%) (Auto) 82.1 % (45.0-75.0) H Lymphocytes (%) (Auto) 8.7 % (20.0-45.0) L Monocytes (%) (Auto) 8.2 % (1.0-10.0) Eosinophils (%) (Auto) 0.0 % (0.0-3.0) Basophils (%) (Auto) 1.0 % (0.0-2.0) Activated Partial Thromboplast Time 34 SEC (23-33) H Sodium Level 118 MMOL/L (136-145) *L Potassium Level 3.7 MMOL/L (3.5-5.1) Chloride Level 79 MMOL/L (98-107) L Carbon Dioxide Level 9 MMOL/L (21-32) *L Anion Gap 30 mmol/L (5-15) H Blood Urea Nitrogen 88 mg/dL (7-18) H Creatinine 5.8 MG/DL (0.55-1.30) H Estimat Glomerular Filtration Rate 9.0 mL/min (>60) Glucose Level 144 MG/DL (74-106) H Hemoglobin A1c 5.4 % (4.3-6.0) Uric Acid 11.3 MG/DL (2.6-7.2) H Calcium Level 5.6 MG/DL (8.5-10.1) *L Phosphorus Level 5.3 MG/DL (2.5-4.9) H Magnesium Level 1.3 MG/DL (1.8-2.4) L Total Bilirubin 0.2 MG/DL (0.2-1.0) Gamma Glutamyl Transpeptidase 101 U/L (5-85) H Aspartate Amino Transf (AST/SGOT) 21 U/L (15-37) Alanine Aminotransferase (ALT/SGPT) 14 U/L (12-78) Alkaline Phosphatase 183 U/L (46-116) H Total Creatine Kinase 141 U/L (26-308) Troponin I 0.006 ng/mL (0.000-0.056) Pro-B-Type Natriuretic Peptide 1482 pg/mL (0-125) H Total Protein 8.1 G/DL (6.4-8.2) Albumin 3.5 G/DL (3.4-5.0) Globulin 4.6 g/dL Albumin/Globulin Ratio 0.8 (1.0-2.7) L Triglycerides Level 94 MG/DL (30-150) Cholesterol Level 128 MG/DL (< 200) LDL Cholesterol 55 mg/dL (<100) HDL Cholesterol 50 MG/DL (40-60) Cholesterol/HDL Ratio 2.6 (3.3-4.4) L Amylase Level 38 U/L (25-115) Lipase 254 U/L (73-393) Vitamin B12 Level 578 PG/ML (193-986) Folate 16.9 NG/ML (8.6-58.9) Thyroid Stimulating Hormone (TSH) 0.095 uiU/mL (0.358-3.740) Dinesh Rice MD Oct 12, 2017 10:59
[2017-10-12] MEDS ORDERED: Promethazine HCl 25 MG in NS 55 ML IV PRN ×3 (12:00→16:15)
--- NOTE | 2017-10-12 13:40 | Nephrology Progress Note ---
Assessment/Plan Problem List: (1) ATN (acute tubular necrosis) (2) Hyponatremia (3) Seizure disorder (4) Diarrhea (5) FTT (failure to thrive) in adult Assessment Acute Renal Failure- Cr higher- Urine out put lower Intractible Diarrhea Was on HCTZ and Stan inhibitor prior to admit COPD Sz disorder Plan Plan; Has Duarte- D5+Bicarb IV fluid 2D Echo- noted THANG - noted Urine studies- check stat labs Subjective ROS Limited/Unobtainable: No Constitutional: Reports: malaise, weakness Objective Objective Last 24 Hour Vital Signs Date Time Temp Pulse Resp B/P (MAP) Pulse Ox O2 Delivery O2 Flow Rate FiO2 10/12/17 13:00 80 18 122/66 100 Nasal Cannula 2.0 10/12/17 12:00 77 18 106/61 100 Nasal Cannula 2.0 10/12/17 12:00 72 10/12/17 11:00 98.5 70 15 111/66 100 Nasal Cannula 2.0 98.5 10/12/17 10:19 99 Nasal Cannula 2.0 28 10/12/17 10:18 Nasal Cannula 2.0 28 10/12/17 10:00 78 15 108/62 100 Nasal Cannula 2.0 10/12/17 09:00 79 15 116/60 100 Nasal Cannula 2.0 10/12/17 08:00 78 10/12/17 08:00 70 15 115/60 100 Nasal Cannula 2.0 10/12/17 07:00 97.8 75 14 118/66 100 Nasal Cannula 2.0 97.8 10/12/17 06:00 73 14 104/61 100 Room Air 10/12/17 05:00 77 10/12/17 05:00 95.2 77 14 122/84 97 Room Air 95.2 10/12/17 04:00 97.0 85 20 118/69 92 Room Air 97.0 10/12/17 04:00 82 10/12/17 00:00 97.0 72 20 128/72 99 Room Air 97.0 10/11/17 23:42 88 10/11/17 21:00 97.3 98 20 119/76 95 Room Air 97.3 10/11/17 20:00 97 10/11/17 16:00 87 10/11/17 13:50 96.8 92 16 117/73 96 Room Air 96.8 Intake and Output 10/11/17 10/12/17 19:00 07:00 Intake Total 1000 ml 150 ml Output Total 250 ml 40 ml Balance 750 ml 110 ml Intake Oral 0 ml IV Total 1000 ml 150 ml Output Urine Total 250 ml 40 ml Laboratory Tests 10/11/17 18:00: Urine Color Pale yellow, Urine Appearance Clear, Urine pH 5, Urine Specific [place] 1.010, Urine Protein 3+H, Urine Glucose (UA) 1+H, Urine Ketones Negative , Urine Occult Blood 2+H, Urine Nitrite Negative, Urine Bilirubin Negative, Urine Urobilinogen Normal, Urine Leukocyte Esterase 2+H, Urine RBC 2-4H, Urine WBC 2-4, Urine Squamous Epithelial Cells Few, Urine Amorphous Sediment FewH, Urine Bacteria Few, Urine Osmolality 282L, Urine Random Sodium 66, Urine Opiates Screen Negative, Urine Barbiturates Screen Negative, Phencyclidine (PCP ) Screen Negative, Urine Amphetamines Screen Negative, Urine Benzodiazepines Screen Negative, Urine Cocaine Screen PositiveH, Urine Marijuana (THC) Screen Negative 10/12/17 03:45: Arterial Blood pH 7.158*L, Arterial Blood Partial Pressure CO2 21.1*L, Arterial Blood Partial Pressure O2 105.0H, Arterial Blood HCO3 7.3L, Arterial Blood Oxygen Saturation 96.7, Arterial Blood Base Excess -19.4, Satya Test Positive 10/12/17 05:40: White Blood Count 10.1, Red Blood Count 4.77, Hemoglobin 13.4, Hematocrit 37.8, Mean Corpuscular Volume 79L, Mean Corpuscular Hemoglobin 28.0, Mean Corpuscular Hemoglobin Concent 35.3, Red Cell Distribution Width 12.3, Platelet Count 401, Mean Platelet Volume 6.3L, Neutrophils (%) (Auto) 82.1H, Lymphocytes (%) (Auto) 8.7L, Monocytes (%) (Auto) 8.2, Eosinophils (%) (Auto) 0.0, Basophils (%) (Auto ) 1.0, Activated Partial Thromboplast Time 34H, Sodium Level 118*L, Potassium Level 3.7, Chloride Level 79L, Carbon Dioxide Level 9*L, Anion Gap 30H, Blood Urea Nitrogen 88H, Creatinine 5.8H, Estimat Glomerular Filtration Rate 9.0, Glucose Level 144H, Hemoglobin A1c 5.4, Uric Acid 11.3H, Calcium Level 5.6*L, Phosphorus Level 5.3H, Magnesium Level 1.3L, Total Bilirubin 0.2, Gamma Glutamyl Transpeptidase 101H, Aspartate Amino Transf (AST/SGOT) 21, Alanine Aminotransferase (ALT/SGPT) 14, Alkaline Phosphatase 183H, Total Creatine Kinase 141, Troponin I 0.006, Pro-B-Type Natriuretic Peptide 1482H, Total Protein 8.1, Albumin 3.5, Globulin 4.6, Albumin/Globulin Ratio 0.8L, Triglycerides Level 94, Cholesterol Level 128, LDL Cholesterol 55, HDL Cholesterol 50, Cholesterol/HDL Ratio 2.6L, Amylase Level 38, Lipase 254, Vitamin B12 Level 578, Folate 16.9, Thyroid Stimulating Hormone (TSH) 0.095L 10/12/17 08:45: Arterial Blood pH 7.348L, Arterial Blood Partial Pressure CO2 22.3*L, Arterial Blood Partial Pressure O2 154.6H, Arterial Blood HCO3 12.0L, Arterial Blood Oxygen Saturation 98.8H, Arterial Blood Base Excess -11.6, Satya Test Positive Height (Feet): 5 Height (Inches): 4.00 Weight (Pounds): 120 General Appearance: no apparent distress, lethargic Cardiovascular: normal rate Respiratory/Chest: decreased breath sounds Abdomen: distended MARIELA PA Oct 12, 2017 13:40
--- NOTE | 2017-10-12 14:57 | Cardiology Report ---
APPROVED REPORT EKG Measurement Heart [id number] Normal sinus rhythm Right atrial enlargement Voltage criteria for left ventricular hypertrophy Prolonged QT Abnormal ECG
[2017-10-12] MEDS ORDERED: Miralax 17gm pkt ORAL PRN ×2 (15:00→21:00)
[2017-10-12 15:15] LABS: ALANINE AMINOTRANSFERASE 10 U/L (12-78); ALBUMIN 3.3 G/DL (3.4-5.0); ALBUMIN/GLOBULIN RATIO 0.8 (1.0-2.7); ALKALINE PHOSPHATASE 164 U/L (46-116); ANION GAP 22 mmol/L (5-15); ASPARTATE AMINO TRANSFERASE 14 U/L (15-37); BILIRUBIN,TOTAL 0.2 MG/DL (0.2-1.0); BLOOD UREA NITROGEN 85 mg/dL (7-18); CARBON DIOXIDE 19 MMOL/L (21-32); CHLORIDE 79 MMOL/L (98-107); PHOSPHORUS 3.8 MG/DL (2.5-4.9); SODIUM 120 MMOL/L (136-145)
[2017-10-12 15:24] LABS: CALCIUM < 5.0 MG/DL (8.5-10.1); POTASSIUM 2.6 MMOL/L (3.5-5.1)
--- NOTE | 2017-10-12 15:43 | GI Progress Note ---
Assessment/Plan Problems: (1) Anemia ICD Codes: D64.9 - Anemia SNOMED: 848440655 (2) Severe malnutrition ICD Codes: E43 - Unspecified severe protein-calorie malnutrition SNOMED: 61381269 (3) Renal insufficiency ICD Codes: N28.9 - Disorder of kidney and ureter, unspecified SNOMED: 137699488, 844169530 (4) Dehydration ICD Codes: E86.0 - Dehydration SNOMED: 32116453 (5) FTT (failure to thrive) in adult ICD Codes: R62.7 - Adult failure to thrive SNOMED: 653126568 (6) Weakness ICD Codes: R53.1 - Weakness SNOMED: 02336017 (7) Altered level of consciousness ICD Codes: R40.4 - Transient alteration of awareness SNOMED: 6751259 Status: stable Status Narrative Discussed with Dr. Sanchez. Assessment/Plan CT AP and abdominal U/S reviewed >> will defer MRCP given no transaminitis utox >> positive for cocaine cdiff negative electrolyte correction per nephro send for stool studies adv to renal soft diet, push PO dc ppi r/o cdiff, add H2B prn transfusions OT/PT evaluation fu labs Subjective Subjective feels better, but still weak Objective Last 24 Hour Vital Signs Date Time Temp Pulse Resp B/P (MAP) Pulse Ox O2 Delivery O2 Flow Rate FiO2 10/12/17 15:00 86 17 124/64 100 Nasal Cannula 2.0 10/12/17 14:00 77 17 109/62 100 Nasal Cannula 2.0 10/12/17 13:00 80 18 122/66 100 Nasal Cannula 2.0 10/12/17 12:00 77 18 106/61 100 Nasal Cannula 2.0 10/12/17 12:00 72 10/12/17 11:00 98.5 70 15 111/66 100 Nasal Cannula 2.0 98.5 10/12/17 10:19 99 Nasal Cannula 2.0 28 10/12/17 10:18 Nasal Cannula 2.0 28 10/12/17 10:00 78 15 108/62 100 Nasal Cannula 2.0 10/12/17 09:00 79 15 116/60 100 Nasal Cannula 2.0 10/12/17 08:00 78 10/12/17 08:00 70 15 115/60 100 Nasal Cannula 2.0 10/12/17 07:00 97.8 75 14 118/66 100 Nasal Cannula 2.0 97.8 10/12/17 06:00 73 14 104/61 100 Room Air 10/12/17 05:00 77 10/12/17 05:00 95.2 77 14 122/84 97 Room Air 95.2 10/12/17 04:00 97.0 85 20 118/69 92 Room Air 97.0 10/12/17 04:00 82 10/12/17 00:00 97.0 72 20 128/72 99 Room Air 97.0 10/11/17 23:42 88 10/11/17 21:00 97.3 98 20 119/76 95 Room Air 97.3 10/11/17 20:00 97 10/11/17 16:00 87 Intake and Output 10/11/17 10/12/17 19:00 07:00 Intake Total 1000 ml 150 ml Output Total 250 ml 40 ml Balance 750 ml 110 ml Intake Oral 0 ml IV Total 1000 ml 150 ml Output Urine Total 250 ml 40 ml Laboratory Tests Test 10/11/17 18:00 10/12/17 03:45 10/12/17 05:40 10/12/17 08:45 Urine Color Pale yellow Urine Appearance Clear Urine pH 5 (4.5-8.0) Urine Specific [place] 1.010 (1.005-1.035) Urine Protein 3+ (NEGATIVE) H Urine Glucose (UA) 1+ (NEGATIVE) H Urine Ketones Negative (NEGATIVE) Urine Occult Blood 2+ (NEGATIVE) H Urine Nitrite Negative (NEGATIVE) Urine Bilirubin Negative (NEGATIVE) Urine Urobilinogen Normal MG/DL (0.0-1.0) Urine Leukocyte Esterase 2+ (NEGATIVE) H Urine RBC 2-4 /HPF (0 - 2) H Urine WBC 2-4 /HPF (0 - 2) Urine Squamous Epithelial Cells Few /LPF (NONE/OCC) Urine Amorphous Sediment Few /LPF (NONE) H Urine Bacteria Few /HPF (NONE) Urine Osmolality 282 mOsm/kg (429-449) L Urine Random Sodium 66 mmol/L (20-110) Urine Opiates Screen Negative (NEGATIVE) Urine Barbiturates Screen Negative (NEGATIVE) Phencyclidine (PCP) Screen Negative (NEGATIVE) Urine Amphetamines Screen Negative (NEGATIVE) Urine Benzodiazepines Screen Negative (NEGATIVE) Urine Cocaine Screen Positive (NEGATIVE) H Urine Marijuana (THC) Screen Negative (NEGATIVE) Arterial Blood pH 7.158 (7.350-7.450) 7.348 (7.350-7.450) Arterial Blood Partial Pressure CO2 21.1 mmHg (35.0-45.0) *L 22.3 mmHg (35.0-45.0) *L Arterial Blood Partial Pressure O2 105.0 mmHg (75.0-100.0) H 154.6 mmHg (75.0-100.0) H Arterial Blood HCO3 7.3 mmol/L (22.0-26.0) L 12.0 mmol/L (22.0-26.0) L Arterial Blood Oxygen Saturation 96.7 % (92.0-98.0) 98.8 % (92.0-98.0) H Arterial Blood Base Excess -19.4 -11.6 Satya Test Positive Positive White Blood Count 10.1 K/UL (4.8-10.8) Red Blood Count 4.77 M/UL (4.20-5.40) Hemoglobin 13.4 G/DL (12.0-16.0) Hematocrit 37.8 % (37.0-47.0) Mean Corpuscular Volume 79 FL (80-99) L Mean Corpuscular Hemoglobin 28.0 PG (27.0-31.0) Mean Corpuscular Hemoglobin Concent 35.3 G/DL (32.0-36.0) Red Cell Distribution Width 12.3 % (11.6-14.8) Platelet Count 401 K/UL (150-450) Mean Platelet Volume 6.3 FL (6.5-10.1) L Neutrophils (%) (Auto) 82.1 % (45.0-75.0) H Lymphocytes (%) (Auto) 8.7 % (20.0-45.0) L Monocytes (%) (Auto) 8.2 % (1.0-10.0) Eosinophils (%) (Auto) 0.0 % (0.0-3.0) Basophils (%) (Auto) 1.0 % (0.0-2.0) Activated Partial Thromboplast Time 34 SEC (23-33) H Sodium Level 118 MMOL/L (136-145) *L Potassium Level 3.7 MMOL/L (3.5-5.1) Chloride Level 79 MMOL/L (98-107) L Carbon Dioxide Level 9 MMOL/L (21-32) *L Anion Gap 30 mmol/L (5-15) H Blood Urea Nitrogen 88 mg/dL (7-18) H Creatinine 5.8 MG/DL (0.55-1.30) H Estimat Glomerular Filtration Rate 9.0 mL/min (>60) Glucose Level 144 MG/DL (74-106) H Hemoglobin A1c 5.4 % (4.3-6.0) Uric Acid 11.3 MG/DL (2.6-7.2) H Calcium Level 5.6 MG/DL (8.5-10.1) *L Phosphorus Level 5.3 MG/DL (2.5-4.9) H Magnesium Level 1.3 MG/DL (1.8-2.4) L Total Bilirubin 0.2 MG/DL (0.2-1.0) Gamma Glutamyl Transpeptidase 101 U/L (5-85) H Aspartate Amino Transf (AST/SGOT) 21 U/L (15-37) Alanine Aminotransferase (ALT/SGPT) 14 U/L (12-78) Alkaline Phosphatase 183 U/L (46-116) H Total Creatine Kinase 141 U/L (26-308) Troponin I 0.006 ng/mL (0.000-0.056) Pro-B-Type Natriuretic Peptide 1482 pg/mL (0-125) H Total Protein 8.1 G/DL (6.4-8.2) Albumin 3.5 G/DL (3.4-5.0) Globulin 4.6 g/dL Albumin/Globulin Ratio 0.8 (1.0-2.7) L Triglycerides Level 94 MG/DL (30-150) Cholesterol Level 128 MG/DL (< 200) LDL Cholesterol 55 mg/dL (<100) HDL Cholesterol 50 MG/DL (40-60) Cholesterol/HDL Ratio 2.6 (3.3-4.4) L Amylase Level 38 U/L (25-115) Lipase 254 U/L (73-393) Vitamin B12 Level 578 PG/ML (193-986) Folate 16.9 NG/ML (8.6-58.9) Thyroid Stimulating Hormone (TSH) 0.095 uiU/mL (0.358-3.740) Test 10/12/17 14:30 Sodium Level 120 MMOL/L (136-145) L Potassium Level 2.6 MMOL/L (3.5-5.1) *L Chloride Level 79 MMOL/L (98-107) L Carbon Dioxide Level 19 MMOL/L (21-32) L Anion Gap 22 mmol/L (5-15) H Blood Urea Nitrogen 85 mg/dL (7-18) H Creatinine 5.0 MG/DL (0.55-1.30) H Estimat Glomerular Filtration Rate 10.7 mL/min (>60) Glucose Level 129 MG/DL (74-106) H Uric Acid 11.6 MG/DL (2.6-7.2) H Calcium Level < 5.0 MG/DL (8.5-10.1) *L Phosphorus Level 3.8 MG/DL (2.5-4.9) Magnesium Level 1.2 MG/DL (1.8-2.4) L Total Bilirubin 0.2 MG/DL (0.2-1.0) Aspartate Amino Transf (AST/SGOT) 14 U/L (15-37) L Alanine Aminotransferase (ALT/SGPT) 10 U/L (12-78) L Alkaline Phosphatase 164 U/L (46-116) H Total Protein 7.5 G/DL (6.4-8.2) Albumin 3.3 G/DL (3.4-5.0) L Globulin 4.2 g/dL Albumin/Globulin Ratio 0.8 (1.0-2.7) L Height (Feet): 5 Height (Inches): 4.00 Weight (Pounds): 120 General Appearance: WD/WN, no apparent distress, alert Cardiovascular: normal rate Respiratory/Chest: normal breath sounds, no respiratory distress Abdominal Exam: normal bowel sounds, non tender, soft Extremities: normal range of motion, non-tender Valentina Matos N.P. Oct 12, 2017 15:43
[2017-10-12] MEDS ORDERED: Potassium Chloride 50 MEQ in Sodium Chloride 500ML 550 ML IVPB ONE (16:00)
[2017-10-12] MEDS: Morphine Sulfate 4mg/ml Inj IVP PRN ×2 (16:23→22:35)
[2017-10-12] MEDS: Potassium Chloride 50 MEQ in Sodium Chloride 500ML 550 ML IVPB ONE ×2 (16:29→20:59)
[2017-10-12] MEDS: Heparin 5000 units/ml inj SUBQ SCH (20:58)
[2017-10-13] VITALS: BP 104/62
[2017-10-13] MEDS ORDERED: Sodium Bicarbonate 150 ML in D5W 1000ml 1,000 ML IV SCH (01:00)
[2017-10-13] MEDS: Morphine Sulfate 4mg/ml Inj IVP PRN ×5 (02:16→21:55)
[2017-10-13 04:00] VITALS: BP 124/68
[2017-10-13 07:18] LABS: ALANINE AMINOTRANSFERASE 12 U/L (12-78); ALBUMIN 2.9 G/DL (3.4-5.0); ALBUMIN/GLOBULIN RATIO 0.7 (1.0-2.7); ALKALINE PHOSPHATASE 141 U/L (46-116); ANION GAP 13 mmol/L (5-15); ASPARTATE AMINO TRANSFERASE 12 U/L (15-37); BILIRUBIN,TOTAL 0.2 MG/DL (0.2-1.0); BLOOD UREA NITROGEN 67 mg/dL (7-18); CARBON DIOXIDE 28 MMOL/L (21-32); CHLORIDE 88 MMOL/L (98-107); SODIUM 128 MMOL/L (136-145)
[2017-10-13 07:21] LABS: POTASSIUM 2.6 MMOL/L (3.5-5.1)
[2017-10-13 07:22] LABS: CALCIUM 5.1 MG/DL (8.5-10.1)
[2017-10-13 07:27] LABS: BASOPHILS % (AUTO) 1.3 % (0.0-2.0); EOSINOPHILS % (AUTO) 0.2 % (0.0-3.0); HEMATOCRIT 33.1 % (37.0-47.0); LYMPHOCYTES % (AUTO) 22.9 % (20.0-45.0); MEAN CORPUSCULAR VOLUME 78 FL (80-99); MONOCYTES % (AUTO) 13.9 % (1.0-10.0); NEUTROPHILS % (AUTO) 61.9 % (45.0-75.0); PLATELET COUNT 290 K/UL (150-450); RED BLOOD COUNT 4.26 M/UL (4.20-5.40); RED CELL DISTRIBUTION WIDTH 12.1 % (11.6-14.8); WHITE BLOOD COUNT 9.4 K/UL (4.8-10.8)
[2017-10-13 08:00] VITALS: BP 124/72
[2017-10-13] MEDS: D5NS 1,000 ML IV SCH ×2 (09:00→20:54)
[2017-10-13] MEDS ORDERED: Calcium Gluconate 10% 2 GM in NS 110 ML IVPB ONE (09:30)
[2017-10-13] MEDS: Heparin 5000 units/ml inj SUBQ SCH ×2 (09:36→20:44)
--- NOTE | 2017-10-13 10:01 | Pulmonology Progress Note ---
Assessment/Plan Problems: (1) ATN (acute tubular necrosis) (2) Hyponatremia (3) Metabolic acidosis (4) Dehydration (5) Severe malnutrition Assessment/Plan renal function improving CT and abd US reviewed GI note reviewed unknown cause of acidosis and ATN ( Cocaine+) Subjective ROS Limited/Unobtainable: No Constitutional: Reports: no symptoms HEENT: Repors: no symptoms Respiratory: Reports: no symptoms Allergies: Coded Allergies: No Known Allergies (Unverified , 09/12/12) Objective Last 24 Hour Vital Signs Date Time Temp Pulse Resp B/P (MAP) Pulse Ox O2 Delivery O2 Flow Rate FiO2 10/13/17 04:00 98.1 70 20 124/68 100 98.1 10/13/17 03:47 66 10/13/17 00:00 97.9 75 20 104/62 99 97.9 10/12/17 23:51 79 10/12/17 20:00 97.4 72 24 130/78 100 97.4 10/12/17 19:41 70 10/12/17 19:20 99 Nasal Cannula 2.0 28 10/12/17 19:20 Nasal Cannula 2.0 28 10/12/17 17:46 97.5 79 19 125/72 100 97.5 10/12/17 16:00 76 10/12/17 15:00 86 17 124/64 100 Nasal Cannula 2.0 10/12/17 14:00 77 17 109/62 100 Nasal Cannula 2.0 10/12/17 13:00 80 18 122/66 100 Nasal Cannula 2.0 10/12/17 12:00 77 18 106/61 100 Nasal Cannula 2.0 10/12/17 12:00 72 10/12/17 11:00 98.5 70 15 111/66 100 Nasal Cannula 2.0 98.5 10/12/17 10:19 99 Nasal Cannula 2.0 28 10/12/17 10:18 Nasal Cannula 2.0 28 10/12/17 10:00 78 15 108/62 100 Nasal Cannula 2.0 Intake and Output 10/12/17 10/13/17 19:00 07:00 Intake Total 200 ml 1436.6 ml Output Total 1060 ml 1350 ml Balance -860 ml 86.6 ml Intake Oral 240 ml IV Total 200 ml 1196.6 ml Output Urine Total 1060 ml 1350 ml General Appearance: WD/WN HEENT: normocephalic, atraumatic Respiratory/Chest: chest wall non-tender, lungs clear Breasts: no masses Cardiovascular: normal peripheral pulses, normal rate Abdomen: normal bowel sounds, no organomegaly Genitourinary: normal external genitalia Extremities: no clubbing Skin: no lesions Microbiology Date/Time Source Procedure Growth Status 10/11/17 10:00 Stool Clostridium difficile Toxin Assay - Final Complete Laboratory Tests 10/12/17 14:30: Sodium Level 120L, Potassium Level 2.6*L, Chloride Level 79L, Carbon Dioxide Level 19L, Anion Gap 22H, Blood Urea Nitrogen 85H, Creatinine 5.0H, Estimat Glomerular Filtration Rate 10.7, Glucose Level 129H, Uric Acid 11.6H, Calcium Level < 5.0*L, Phosphorus Level 3.8, Magnesium Level 1.2L, Total Bilirubin 0.2, Aspartate Amino Transf (AST/SGOT) 14L, Alanine Aminotransferase (ALT/SGPT) 10L, Alkaline Phosphatase 164H, Total Protein 7.5, Albumin 3.3L, Globulin 4.2, Albumin/Globulin Ratio 0.8L 10/13/17 01:00: Urine Eosinophils None seen 10/13/17 06:05: Sodium Level 128L, Potassium Level 2.6*L, Chloride Level 88L, Carbon Dioxide Level 28, Anion Gap 13, Blood Urea Nitrogen 67H, Creatinine 3.0H, Estimat Glomerular Filtration Rate 19.3, Glucose Level 109H, Calcium Level 5.1*L, Phosphorus Level 2.0L, Magnesium Level 1.0L, Total Bilirubin 0.2, Aspartate Amino Transf (AST/SGOT) 12L, Alanine Aminotransferase (ALT/SGPT) 12, Alkaline Phosphatase 141H, Total Protein 6.8, Albumin 2.9L, Globulin 3.9, Albumin/ Globulin Ratio 0.7L, White Blood Count 9.4, Red Blood Count 4.26, Hemoglobin 11.0L, Hematocrit 33.1L, Mean Corpuscular Volume 78L, Mean Corpuscular Hemoglobin 25.8L, Mean Corpuscular Hemoglobin Concent 33.2, Red Cell Distribution Width 12.1, Platelet Count 290, Mean Platelet Volume 5.9L, Neutrophils (%) (Auto) 61.9, Lymphocytes (%) (Auto) 22.9, Monocytes (%) (Auto) 13.9H, Eosinophils (%) (Auto) 0.2, Basophils (%) (Auto) 1.3 Current Medications Medications (Trade) Dose Ordered Sig/Martha Route PRN Reason Start Time Stop Time Status Last Admin Dose Admin Acetaminophen (Tylenol) 650 mg Q4H PRN ORAL fever 10/12/17 15:00 11/10/17 14:59 Calcium Gluconate 2 gm/Sodium Chloride 130 ml @ 130 mls/hr ONCE ONCE IVPB 10/13/17 09:30 10/13/17 10:29 10/13/17 09:38 Dextrose (Dextrose 50%) 25 ml STAT PRN IV Hypoglycemia 10/12/17 15:00 11/11/17 14:59 Dextrose (Dextrose 50%) 50 ml STAT PRN IV Hypoglycemia 10/12/17 15:00 11/11/17 14:59 Dextrose/Sodium Chloride 1,000 ml @ 100 mls/hr Q10H IV 10/13/17 09:00 11/12/17 08:59 10/13/17 09:00 Diphenhydramine HCl (Benadryl) 25 mg Q6H PRN ORAL Itching/Pruritis 10/12/17 15:00 11/10/17 14:59 Famotidine (Pepcid I.v.) 20 mg DAILY IVP 10/13/17 09:00 11/12/17 08:59 10/13/17 08:59 Heparin Sodium (Porcine) (Heparin 5000 units/ml) 5,000 units EVERY 12 HOURS SUBQ 10/12/17 21:00 11/10/17 20:59 10/13/17 09:36 Lamotrigine (LaMICtal) 50 mg BIDLS ORAL 10/13/17 11:30 11/12/17 11:29 Lorazepam (Ativan 2mg/ml 1ml) 1 mg Q4H PRN IV agitation 10/12/17 15:00 10/18/17 14:59 Magnesium Sulfate 100 ml @ 100 mls/hr Q1H IVPB 10/13/17 08:30 10/13/17 12:29 10/13/17 09:51 Morphine Sulfate (Morphine Sulfate) 2 mg Q4H PRN IVP Severe Pain (Pain Scale 7-10) 10/12/17 15:00 10/19/17 14:59 10/13/17 06:03 Nitroglycerin (Ntg) 0.4 mg Q5M X 3 DOSES PRN SL Prn Chest Pain 10/12/17 15:00 11/10/17 14:59 Ondansetron HCl (Zofran) 4 mg Q6H PRN IVP Nausea & Vomiting 10/12/17 15:00 11/10/17 14:59 Polyethylene Glycol (Miralax) 17 gm HSPRN PRN ORAL Constipation 10/12/17 15:00 11/10/17 14:59 Potassium Phosphate 30 mm/ Sodium Chloride 285 ml @ 47.5 mls/hr ONCE ONCE IV 10/13/17 10:30 10/13/17 16:29 Potassium Chloride (K-Dur) 40 meq TWICE A DAY ORAL 10/13/17 09:00 11/12/17 08:59 10/13/17 09:35 Promethazine HCl 25 mg/Sodium Chloride 56 ml @ 112 mls/hr Q8H PRN IV REFRACTORY NAUSEA 2ND LINE AGE 410/12/17 16:15 11/10/17 15:14 Temazepam (Restoril) 15 mg HSPRN PRN ORAL Insomnia 10/12/17 15:00 10/18/17 14:59 10/12/17 22:34 Dinesh Rice MD Oct 13, 2017 10:01
--- NOTE | 2017-10-13 10:29 | GI Progress Note ---
Assessment/Plan Problems: (1) Anemia ICD Codes: D64.9 - Anemia SNOMED: 722894677 (2) Severe malnutrition ICD Codes: E43 - Unspecified severe protein-calorie malnutrition SNOMED: 17908336 (3) Renal insufficiency ICD Codes: N28.9 - Disorder of kidney and ureter, unspecified SNOMED: 612589893, 849571179 (4) Dehydration ICD Codes: E86.0 - Dehydration SNOMED: 93692349 (5) FTT (failure to thrive) in adult ICD Codes: R62.7 - Adult failure to thrive SNOMED: 367739545 (6) Weakness ICD Codes: R53.1 - Weakness SNOMED: 19341416 (7) Altered level of consciousness ICD Codes: R40.4 - Transient alteration of awareness SNOMED: 1630297 Status: stable Status Narrative Discussed with Dr. Sanchez. Assessment/Plan CT AP and abdominal U/S reviewed >> will defer MRCP given no transaminitis utox >> positive for cocaine cdiff negative electrolyte correction per nephro send for stool studies adv to renal soft diet, push PO dc ppi r/o cdiff, add H2B prn transfusions OT/PT evaluation fu labs Subjective Subjective feels better, but still weak Objective Last 24 Hour Vital Signs Date Time Temp Pulse Resp B/P (MAP) Pulse Ox O2 Delivery O2 Flow Rate FiO2 10/13/17 04:00 98.1 70 20 124/68 100 98.1 10/13/17 03:47 66 10/13/17 00:00 97.9 75 20 104/62 99 97.9 10/12/17 23:51 79 10/12/17 20:00 97.4 72 24 130/78 100 97.4 10/12/17 19:41 70 10/12/17 19:20 99 Nasal Cannula 2.0 28 10/12/17 19:20 Nasal Cannula 2.0 28 10/12/17 17:46 97.5 79 19 125/72 100 97.5 10/12/17 16:00 76 10/12/17 15:00 86 17 124/64 100 Nasal Cannula 2.0 10/12/17 14:00 77 17 109/62 100 Nasal Cannula 2.0 10/12/17 13:00 80 18 122/66 100 Nasal Cannula 2.0 10/12/17 12:00 77 18 106/61 100 Nasal Cannula 2.0 10/12/17 12:00 72 10/12/17 11:00 98.5 70 15 111/66 100 Nasal Cannula 2.0 98.5 Intake and Output 10/12/17 10/13/17 19:00 07:00 Intake Total 200 ml 1436.6 ml Output Total 1060 ml 1350 ml Balance -860 ml 86.6 ml Intake Oral 240 ml IV Total 200 ml 1196.6 ml Output Urine Total 1060 ml 1350 ml Laboratory Tests Test 10/12/17 14:30 10/13/17 01:00 10/13/17 06:05 Sodium Level 120 MMOL/L (136-145) L 128 MMOL/L (136-145) L Potassium Level 2.6 MMOL/L (3.5-5.1) *L 2.6 MMOL/L (3.5-5.1) *L Chloride Level 79 MMOL/L (98-107) L 88 MMOL/L (98-107) L Carbon Dioxide Level 19 MMOL/L (21-32) L 28 MMOL/L (21-32) Anion Gap 22 mmol/L (5-15) H 13 mmol/L (5-15) Blood Urea Nitrogen 85 mg/dL (7-18) H 67 mg/dL (7-18) H Creatinine 5.0 MG/DL (0.55-1.30) H 3.0 MG/DL (0.55-1.30) H Estimat Glomerular Filtration Rate 10.7 mL/min (>60) 19.3 mL/min (>60) Glucose Level 129 MG/DL (74-106) H 109 MG/DL (74-106) H Uric Acid 11.6 MG/DL (2.6-7.2) H Calcium Level < 5.0 MG/DL (8.5-10.1) *L 5.1 MG/DL (8.5-10.1) *L Phosphorus Level 3.8 MG/DL (2.5-4.9) 2.0 MG/DL (2.5-4.9) L Magnesium Level 1.2 MG/DL (1.8-2.4) L 1.0 MG/DL (1.8-2.4) L Total Bilirubin 0.2 MG/DL (0.2-1.0) 0.2 MG/DL (0.2-1.0) Aspartate Amino Transf (AST/SGOT) 14 U/L (15-37) L 12 U/L (15-37) L Alanine Aminotransferase (ALT/SGPT) 10 U/L (12-78) L 12 U/L (12-78) Alkaline Phosphatase 164 U/L (46-116) H 141 U/L (46-116) H Total Protein 7.5 G/DL (6.4-8.2) 6.8 G/DL (6.4-8.2) Albumin 3.3 G/DL (3.4-5.0) L 2.9 G/DL (3.4-5.0) L Globulin 4.2 g/dL 3.9 g/dL Albumin/Globulin Ratio 0.8 (1.0-2.7) L 0.7 (1.0-2.7) L Urine Eosinophils None seen White Blood Count 9.4 K/UL (4.8-10.8) Red Blood Count 4.26 M/UL (4.20-5.40) Hemoglobin 11.0 G/DL (12.0-16.0) L Hematocrit 33.1 % (37.0-47.0) L Mean Corpuscular Volume 78 FL (80-99) L Mean Corpuscular Hemoglobin 25.8 PG (27.0-31.0) L Mean Corpuscular Hemoglobin Concent 33.2 G/DL (32.0-36.0) Red Cell Distribution Width 12.1 % (11.6-14.8) Platelet Count 290 K/UL (150-450) Mean Platelet Volume 5.9 FL (6.5-10.1) L Neutrophils (%) (Auto) 61.9 % (45.0-75.0) Lymphocytes (%) (Auto) 22.9 % (20.0-45.0) Monocytes (%) (Auto) 13.9 % (1.0-10.0) H Eosinophils (%) (Auto) 0.2 % (0.0-3.0) Basophils (%) (Auto) 1.3 % (0.0-2.0) Height (Feet): 5 Height (Inches): 4.00 Weight (Pounds): 120 General Appearance: WD/WN, no apparent distress, alert Cardiovascular: normal rate Respiratory/Chest: normal breath sounds, no respiratory distress Abdominal Exam: normal bowel sounds, non tender, soft Extremities: non-tender Valentina Matos N.P. Oct 13, 2017 10:29
[2017-10-13] MEDS ORDERED: Potassium Phosphate 30 MM in NS 275 ML IV ONE (10:30)
--- NOTE | 2017-10-13 10:55 | Nephrology Progress Note ---
Assessment/Plan Problem List: (1) ATN (acute tubular necrosis) (2) Hyponatremia (3) Seizure disorder (4) Diarrhea (5) FTT (failure to thrive) in adult Assessment Acute Renal Failure- Cr lowering Intractible Diarrhea Was on HCTZ and Stan inhibitor prior to admit COPD Sz disorder Plan Plan; mag and Phos and Ca supplement Has Duarte- D5NS: IV fluid 2D Echo- noted THANG - noted Urine studies- check am labs discussed with RN Subjective ROS Limited/Unobtainable: No Constitutional: Reports: malaise, weakness Objective Objective Last 24 Hour Vital Signs Date Time Temp Pulse Resp B/P (MAP) Pulse Ox O2 Delivery O2 Flow Rate FiO2 10/13/17 04:00 98.1 70 20 124/68 100 98.1 10/13/17 03:47 66 10/13/17 00:00 97.9 75 20 104/62 99 97.9 10/12/17 23:51 79 10/12/17 20:00 97.4 72 24 130/78 100 97.4 10/12/17 19:41 70 10/12/17 19:20 99 Nasal Cannula 2.0 28 10/12/17 19:20 Nasal Cannula 2.0 28 10/12/17 17:46 97.5 79 19 125/72 100 97.5 10/12/17 16:00 76 10/12/17 15:00 86 17 124/64 100 Nasal Cannula 2.0 10/12/17 14:00 77 17 109/62 100 Nasal Cannula 2.0 10/12/17 13:00 80 18 122/66 100 Nasal Cannula 2.0 10/12/17 12:00 77 18 106/61 100 Nasal Cannula 2.0 10/12/17 12:00 72 10/12/17 11:00 98.5 70 15 111/66 100 Nasal Cannula 2.0 98.5 Intake and Output 10/12/17 10/13/17 19:00 07:00 Intake Total 200 ml 1436.6 ml Output Total 1060 ml 1350 ml Balance -860 ml 86.6 ml Intake Oral 240 ml IV Total 200 ml 1196.6 ml Output Urine Total 1060 ml 1350 ml Laboratory Tests 10/12/17 14:30: Sodium Level 120L, Potassium Level 2.6*L, Chloride Level 79L, Carbon Dioxide Level 19L, Anion Gap 22H, Blood Urea Nitrogen 85H, Creatinine 5.0H, Estimat Glomerular Filtration Rate 10.7, Glucose Level 129H, Uric Acid 11.6H, Calcium Level < 5.0*L, Phosphorus Level 3.8, Magnesium Level 1.2L, Total Bilirubin 0.2, Aspartate Amino Transf (AST/SGOT) 14L, Alanine Aminotransferase (ALT/SGPT) 10L, Alkaline Phosphatase 164H, Total Protein 7.5, Albumin 3.3L, Globulin 4.2, Albumin/Globulin Ratio 0.8L 10/13/17 01:00: Urine Eosinophils None seen 10/13/17 06:05: Sodium Level 128L, Potassium Level 2.6*L, Chloride Level 88L, Carbon Dioxide Level 28, Anion Gap 13, Blood Urea Nitrogen 67H, Creatinine 3.0H, Estimat Glomerular Filtration Rate 19.3, Glucose Level 109H, Calcium Level 5.1*L, Phosphorus Level 2.0L, Magnesium Level 1.0L, Total Bilirubin 0.2, Aspartate Amino Transf (AST/SGOT) 12L, Alanine Aminotransferase (ALT/SGPT) 12, Alkaline Phosphatase 141H, Total Protein 6.8, Albumin 2.9L, Globulin 3.9, Albumin/ Globulin Ratio 0.7L, White Blood Count 9.4, Red Blood Count 4.26, Hemoglobin 11.0L, Hematocrit 33.1L, Mean Corpuscular Volume 78L, Mean Corpuscular Hemoglobin 25.8L, Mean Corpuscular Hemoglobin Concent 33.2, Red Cell Distribution Width 12.1, Platelet Count 290, Mean Platelet Volume 5.9L, Neutrophils (%) (Auto) 61.9, Lymphocytes (%) (Auto) 22.9, Monocytes (%) (Auto) 13.9H, Eosinophils (%) (Auto) 0.2, Basophils (%) (Auto) 1.3 Height (Feet): 5 Height (Inches): 4.00 Weight (Pounds): 120 General Appearance: no apparent distress Respiratory/Chest: decreased breath sounds Abdomen: soft Objective no change MARIELA PA Oct 13, 2017 10:55
[2017-10-13 12:00] VITALS: BP 136/71
[2017-10-13 16:00] VITALS: BP 127/64
[2017-10-13 20:00] VITALS: BP 138/66
[2017-10-14] VITALS: BP 131/61
[2017-10-14 04:00] VITALS: BP 117/55
[2017-10-14] MEDS: D5NS 1,000 ML IV SCH ×2 (05:03→08:11)
[2017-10-14 05:09] LABS: BASOPHILS % (AUTO) 1.1 % (0.0-2.0); EOSINOPHILS % (AUTO) 0.2 % (0.0-3.0); HEMATOCRIT 30.1 % (37.0-47.0); HEMOGLOBIN 10.4 G/DL (12.0-16.0); LYMPHOCYTES % (AUTO) 18.5 % (20.0-45.0); MEAN CORPUSCULAR VOLUME 79 FL (80-99); MONOCYTES % (AUTO) 14.6 % (1.0-10.0); NEUTROPHILS % (AUTO) 65.7 % (45.0-75.0); PLATELET COUNT 216 K/UL (150-450); RED BLOOD COUNT 3.81 M/UL (4.20-5.40); RED CELL DISTRIBUTION WIDTH 12.3 % (11.6-14.8); WHITE BLOOD COUNT 12.1 K/UL (4.8-10.8)
[2017-10-14 05:47] LABS: ALANINE AMINOTRANSFERASE 11 U/L (12-78); ALBUMIN 2.6 G/DL (3.4-5.0); ALBUMIN/GLOBULIN RATIO 0.7 (1.0-2.7); ALKALINE PHOSPHATASE 124 U/L (46-116); ANION GAP 8 mmol/L (5-15); ASPARTATE AMINO TRANSFERASE 14 U/L (15-37); BILIRUBIN,TOTAL 0.4 MG/DL (0.2-1.0); BLOOD UREA NITROGEN 38 mg/dL (7-18); CALCIUM 7.2 MG/DL (8.5-10.1); CARBON DIOXIDE 30 MMOL/L (21-32); CHLORIDE 95 MMOL/L (98-107); CREATININE 1.3 MG/DL (0.55-1.30); PHOSPHORUS 3.5 MG/DL (2.5-4.9); SODIUM 132 MMOL/L (136-145)
[2017-10-14 06:06] LABS: POTASSIUM 2.4 MMOL/L (3.5-5.1)
[2017-10-14 08:00] VITALS: BP 102/48
[2017-10-14] MEDS ORDERED: Vitamin D 50,000 units cap ORAL SCH (09:00)
[2017-10-14] MEDS ORDERED: Potassium Chloride 50 MEQ in Sodium Chloride 500ML 550 ML IVPB ONE (09:00)
[2017-10-14] MEDS: Heparin 5000 units/ml inj SUBQ SCH ×2 (09:10→22:00)
[2017-10-14] MEDS: Morphine Sulfate 4mg/ml Inj IVP PRN ×3 (09:32→18:01)
--- NOTE | 2017-10-14 10:51 | Pulmonology Progress Note ---
Assessment/Plan Problems: (1) ATN (acute tubular necrosis) (2) Hyponatremia (3) Metabolic acidosis (4) Dehydration (5) Severe malnutrition Assessment/Plan renal function improving CT and abd US reviewed GI note reviewed unknown cause of acidosis and ATN ( Cocaine+) renal function improving check electrolytes in am K supplement dvt prophylaxis pt/ot Subjective ROS Limited/Unobtainable: No Constitutional: Reports: no symptoms HEENT: Repors: no symptoms Respiratory: Reports: no symptoms Allergies: Coded Allergies: No Known Allergies (Unverified , 09/12/12) Objective Last 24 Hour Vital Signs Date Time Temp Pulse Resp B/P (MAP) Pulse Ox O2 Delivery O2 Flow Rate FiO2 10/14/17 10:02 98.1 10/14/17 09:32 98.1 10/14/17 08:00 98.1 57 18 102/48 97 Nasal Cannula 2.0 98.1 10/14/17 08:00 55 10/14/17 04:00 97.9 60 18 117/55 99 Nasal Cannula 2.0 97.9 10/14/17 03:35 68 10/14/17 00:00 71 10/14/17 00:00 98.0 69 18 131/61 98 Nasal Cannula 2.0 98.0 10/13/17 20:00 97 Nasal Cannula 2.0 28 10/13/17 20:00 Nasal Cannula 2.0 28 10/13/17 20:00 98.2 65 20 138/66 98 Nasal Cannula 2.0 98.2 10/13/17 20:00 66 10/13/17 17:05 98.1 10/13/17 16:00 98.1 67 21 127/64 97 98.1 10/13/17 16:00 67 10/13/17 12:38 97.9 10/13/17 12:00 76 10/13/17 12:00 97.5 70 20 136/71 97 97.5 Intake and Output 10/13/17 10/14/17 19:00 07:00 Intake Total 910.0 ml 1380 ml Output Total 1625 ml 1400 ml Balance -715.0 ml -20 ml Intake Oral 120 ml 480 ml IV Total 790.0 ml 900 ml Output Urine Total 1625 ml 1400 ml General Appearance: WD/WN HEENT: normocephalic, anicteric Respiratory/Chest: chest wall non-tender, lungs clear, normal breath sounds Breasts: no masses Cardiovascular: normal peripheral pulses, normal rate Abdomen: normal bowel sounds, soft, non tender, no organomegaly Genitourinary: normal external genitalia Extremities: no clubbing Skin: no lesions Neurologic/Psychiatric: therapeutic dietitian II-XII grossly normal, no motor/sensory deficits Lymphatic: no neck adenopathy Musculoskeletal: normal muscle bulk Laboratory Tests 10/14/17 04:15: White Blood Count 12.1H, Red Blood Count 3.81L, Hemoglobin 10.4L, Hematocrit 30.1L, Mean Corpuscular Volume 79L, Mean Corpuscular Hemoglobin 27.2, Mean Corpuscular Hemoglobin Concent 34.4, Red Cell Distribution Width 12.3, Platelet Count 216, Mean Platelet Volume 7.0, Neutrophils (%) (Auto) 65.7, Lymphocytes (% ) (Auto) 18.5L, Monocytes (%) (Auto) 14.6H, Eosinophils (%) (Auto) 0.2, Basophils (%) (Auto) 1.1, Sodium Level 132L, Potassium Level 2.4*L, Chloride Level 95L, Carbon Dioxide Level 30, Anion Gap 8, Blood Urea Nitrogen 38H, Creatinine 1.3#, Estimat Glomerular Filtration Rate 50.4, Glucose Level 107H, Uric Acid 8.5H, Calcium Level 7.2#L, Phosphorus Level 3.5, Magnesium Level 1.4L , Total Bilirubin 0.4, Aspartate Amino Transf (AST/SGOT) 14L, Alanine Aminotransferase (ALT/SGPT) 11L, Alkaline Phosphatase 124H, C-Reactive Protein, Quantitative 3.3H, Pro-B-Type Natriuretic Peptide 2558H, Total Protein 6.5, Albumin 2.6L, Globulin 3.9, Albumin/Globulin Ratio 0.7L 10/14/17 04:25: Urine Eosinophils Rare, Urine Random Sodium 66 10/14/17 08:45: C-Reactive Protein, Quantitative [Pending] Current Medications Medications (Trade) Dose Ordered Sig/Martha Route PRN Reason Start Time Stop Time Status Last Admin Dose Admin Acetaminophen (Tylenol) 650 mg Q4H PRN ORAL fever 10/12/17 15:00 11/10/17 14:59 Dextrose (Dextrose 50%) 25 ml STAT PRN IV Hypoglycemia 10/12/17 15:00 11/11/17 14:59 Dextrose (Dextrose 50%) 50 ml STAT PRN IV Hypoglycemia 10/12/17 15:00 11/11/17 14:59 Dextrose/Sodium Chloride 1,000 ml @ 50 mls/hr Q20H IV 10/14/17 08:00 11/13/17 07:59 10/14/17 08:11 Diphenhydramine HCl (Benadryl) 25 mg Q6H PRN ORAL Itching/Pruritis 10/12/17 15:00 11/10/17 14:59 Ergocalciferol (Drisdol) 50,000 intlu QWEEK ORAL 10/14/17 09:00 11/13/17 08:59 10/14/17 09:16 Heparin Sodium (Porcine) (Heparin 5000 units/ml) 5,000 units EVERY 12 HOURS SUBQ 10/12/17 21:00 11/10/17 20:59 10/14/17 09:10 Lamotrigine (LaMICtal) 50 mg BIDLS ORAL 10/13/17 11:30 11/12/17 11:29 10/13/17 16:59 Lansoprazole (Prevacid) 30 mg DAILY ORAL 10/14/17 09:00 11/13/17 08:59 10/14/17 09:05 Lorazepam (Ativan 2mg/ml 1ml) 1 mg Q4H PRN IV agitation 10/12/17 15:00 10/18/17 14:59 10/13/17 20:45 Magnesium Sulfate 100 ml @ 100 mls/hr Q1H IVPB 10/14/17 08:00 10/14/17 11:59 10/14/17 10:20 Morphine Sulfate (Morphine Sulfate) 2 mg Q4H PRN IVP Severe Pain (Pain Scale 7-10) 10/12/17 15:00 10/19/17 14:59 10/14/17 09:32 Nicotine (Nicoderm) 1 patch Q24H TDERMAL 10/14/17 09:00 11/13/17 08:59 10/14/17 09:09 Nitroglycerin (Ntg) 0.4 mg Q5M X 3 DOSES PRN SL Prn Chest Pain 10/12/17 15:00 11/10/17 14:59 Ondansetron HCl (Zofran) 4 mg Q6H PRN IVP Nausea & Vomiting 10/12/17 15:00 11/10/17 14:59 10/13/17 16:02 Polyethylene Glycol (Miralax) 17 gm HSPRN PRN ORAL Constipation 10/12/17 15:00 11/10/17 14:59 Potassium Chloride 50 meq/ Sodium Chloride 575 ml @ 115 mls/hr ONCE ONCE IVPB 10/14/17 09:00 10/14/17 13:59 10/14/17 09:31 Potassium Chloride (K-Dur) 40 meq TID ORAL 10/14/17 09:00 11/12/17 08:59 10/14/17 09:05 Promethazine HCl 25 mg/Sodium Chloride 56 ml @ 112 mls/hr Q8H PRN IV REFRACTORY NAUSEA 2ND LINE AGE 410/12/17 16:15 11/10/17 15:14 Temazepam (Restoril) 15 mg HSPRN PRN ORAL Insomnia 10/12/17 15:00 10/18/17 14:59 10/13/17 23:32 Dinesh Rice MD Oct 14, 2017 10:51
--- NOTE | 2017-10-14 10:56 | GI Progress Note ---
Assessment/Plan Problems: (1) Anemia ICD Codes: D64.9 - Anemia SNOMED: 108072145 (2) Severe malnutrition ICD Codes: E43 - Unspecified severe protein-calorie malnutrition SNOMED: 73901734 (3) Renal insufficiency ICD Codes: N28.9 - Disorder of kidney and ureter, unspecified SNOMED: 434766250, 504068083 (4) Dehydration ICD Codes: E86.0 - Dehydration SNOMED: 82303265 (5) FTT (failure to thrive) in adult ICD Codes: R62.7 - Adult failure to thrive SNOMED: 741584743 (6) Weakness ICD Codes: R53.1 - Weakness SNOMED: 74145253 (7) Altered level of consciousness ICD Codes: R40.4 - Transient alteration of awareness SNOMED: 3999702 Status: progressing Status Narrative Discussed with Dr. Sanchez. Assessment/Plan CT AP and abdominal U/S reviewed >> will defer MRCP given no transaminitis utox >> positive for cocaine cdiff negative electrolyte correction per nephro supportive care fu stool studies adv to renal soft diet, push PO ppi prn transfusions OT/PT evaluation fu labs Subjective Subjective feels better, but still weak Objective Last 24 Hour Vital Signs Date Time Temp Pulse Resp B/P (MAP) Pulse Ox O2 Delivery O2 Flow Rate FiO2 10/14/17 10:02 98.1 10/14/17 09:32 98.1 10/14/17 08:00 98.1 57 18 102/48 97 Nasal Cannula 2.0 98.1 10/14/17 08:00 55 10/14/17 04:00 97.9 60 18 117/55 99 Nasal Cannula 2.0 97.9 10/14/17 03:35 68 10/14/17 00:00 71 10/14/17 00:00 98.0 69 18 131/61 98 Nasal Cannula 2.0 98.0 10/13/17 20:00 97 Nasal Cannula 2.0 28 10/13/17 20:00 Nasal Cannula 2.0 28 10/13/17 20:00 98.2 65 20 138/66 98 Nasal Cannula 2.0 98.2 10/13/17 20:00 66 10/13/17 17:05 98.1 10/13/17 16:00 98.1 67 21 127/64 97 98.1 10/13/17 16:00 67 10/13/17 12:38 97.9 10/13/17 12:00 76 10/13/17 12:00 97.5 70 20 136/71 97 97.5 Intake and Output 10/13/17 10/14/17 19:00 07:00 Intake Total 910.0 ml 1380 ml Output Total 1625 ml 1400 ml Balance -715.0 ml -20 ml Intake Oral 120 ml 480 ml IV Total 790.0 ml 900 ml Output Urine Total 1625 ml 1400 ml Laboratory Tests Test 10/14/17 04:15 10/14/17 04:25 10/14/17 08:45 White Blood Count 12.1 K/UL (4.8-10.8) H Red Blood Count 3.81 M/UL (4.20-5.40) L Hemoglobin 10.4 G/DL (12.0-16.0) L Hematocrit 30.1 % (37.0-47.0) L Mean Corpuscular Volume 79 FL (80-99) L Mean Corpuscular Hemoglobin 27.2 PG (27.0-31.0) Mean Corpuscular Hemoglobin Concent 34.4 G/DL (32.0-36.0) Red Cell Distribution Width 12.3 % (11.6-14.8) Platelet Count 216 K/UL (150-450) Mean Platelet Volume 7.0 FL (6.5-10.1) Neutrophils (%) (Auto) 65.7 % (45.0-75.0) Lymphocytes (%) (Auto) 18.5 % (20.0-45.0) L Monocytes (%) (Auto) 14.6 % (1.0-10.0) H Eosinophils (%) (Auto) 0.2 % (0.0-3.0) Basophils (%) (Auto) 1.1 % (0.0-2.0) Sodium Level 132 MMOL/L (136-145) L Potassium Level 2.4 MMOL/L (3.5-5.1) *L Chloride Level 95 MMOL/L (98-107) L Carbon Dioxide Level 30 MMOL/L (21-32) Anion Gap 8 mmol/L (5-15) Blood Urea Nitrogen 38 mg/dL (7-18) H Creatinine 1.3 MG/DL (0.55-1.30) # Estimat Glomerular Filtration Rate 50.4 mL/min (>60) Glucose Level 107 MG/DL (74-106) H Uric Acid 8.5 MG/DL (2.6-7.2) H Calcium Level 7.2 MG/DL (8.5-10.1) #L Phosphorus Level 3.5 MG/DL (2.5-4.9) Magnesium Level 1.4 MG/DL (1.8-2.4) L Total Bilirubin 0.4 MG/DL (0.2-1.0) Aspartate Amino Transf (AST/SGOT) 14 U/L (15-37) L Alanine Aminotransferase (ALT/SGPT) 11 U/L (12-78) L Alkaline Phosphatase 124 U/L (46-116) H C-Reactive Protein, Quantitative 3.3 mg/dL (0.00-0.90) H Pending Pro-B-Type Natriuretic Peptide 2558 pg/mL (0-125) H Total Protein 6.5 G/DL (6.4-8.2) Albumin 2.6 G/DL (3.4-5.0) L Globulin 3.9 g/dL Albumin/Globulin Ratio 0.7 (1.0-2.7) L Urine Eosinophils Rare Urine Random Sodium 66 mmol/L (20-110) Height (Feet): 5 Height (Inches): 4.00 Weight (Pounds): 120 General Appearance: no apparent distress Cardiovascular: normal rate Respiratory/Chest: no respiratory distress Abdominal Exam: soft, other - NGT Valentina Matos N.P. Oct 14, 2017 10:56
[2017-10-14 12:00] VITALS: BP 120/64
--- NOTE | 2017-10-14 14:39 | Consultation ---
History of Present Illness General Date patient seen: Oct 13, 2017 Chief Complaint: Diarrhea Referring physician: YVONNE JERRY Reason for Consultation: DIARRHEA Present Illness HPI 62-year-old female brought in by EMS from home for 3 days of watery diarrhea, about 10 episodes a day. the pt has been agitated and is somewhat confused. the pt is a poor historian. the pt has cognitive impairment Allergies: Coded Allergies: No Known Allergies (Unverified , 09/12/12) Medication History Scheduled Hydrochlorothiazide* (Hydrochlorothiazide*), 25 MG PO DAILY, (Reported) Lamotrigine* (Lamictal*), 50 MG ORAL BIDLS Methocarbamol* (Methocarbamol*), 750 MG PO QHS, (Reported) Montelukast Sodium* (Singulair*), 10 MG PO DAILY, (Reported) Omeprazole (Omeprazole), 10 MG ORAL DAILY, (Reported) Temazepam* (Restoril*), 7.5 MG PO QHS, (Reported) Scheduled PRN Acetaminophen/Hydrocodone ([place] 7.5-325 Tablet), 1 TAB ORAL Q4H PRN for For Pain, (Reported) Zolpidem Tartrate* (Ambien*), 5 MG ORAL BEDTIME PRN for Insomnia, (Reported) Miscellaneous Medications Albuterol Sulfate (Ventolin), 5 MG PO, (Reported) Hydrocodone/Acetaminophen 7.5-500 (Hydrocodon-Acetaminoph 7.5-500), 1 EACH PO, ( Reported) Quinapril Hcl (Quinapril Hcl), 10 MG PO, (Reported) Unable to Obtain Medications (Unable To Obtain Meds), (Reported) Patient History History Provided By: Patient, Medical Record Healthcare decision maker Resuscitation status Full Code Advanced Directive on File No Review of Systems Psychiatric: Reports: prior hx, anxiety, depressed feelings Physical Exam General Appearance: no apparent distress, alert, confused, agitated Last 24 Hour Vital Signs Date Time Temp Pulse Resp B/P (MAP) Pulse Ox O2 Delivery O2 Flow Rate FiO2 10/14/17 14:17 98.1 10/14/17 13:47 98.1 10/14/17 12:00 98.1 80 18 120/64 96 Nasal Cannula 2.0 98.1 10/14/17 12:00 69 10/14/17 09:32 98.1 10/14/17 08:00 98.1 57 18 102/48 97 Nasal Cannula 2.0 98.1 10/14/17 08:00 55 10/14/17 04:00 97.9 60 18 117/55 99 Nasal Cannula 2.0 97.9 10/14/17 03:35 68 10/14/17 00:00 71 10/14/17 00:00 98.0 69 18 131/61 98 Nasal Cannula 2.0 98.0 10/13/17 20:00 97 Nasal Cannula 2.0 28 10/13/17 20:00 Nasal Cannula 2.0 28 10/13/17 20:00 98.2 65 20 138/66 98 Nasal Cannula 2.0 98.2 10/13/17 20:00 66 10/13/17 17:05 98.1 10/13/17 16:00 98.1 67 21 127/64 97 98.1 10/13/17 16:00 67 Intake and Output 10/13/17 10/14/17 19:00 07:00 Intake Total 910.0 ml 1380 ml Output Total 1625 ml 1400 ml Balance -715.0 ml -20 ml Intake Oral 120 ml 480 ml IV Total 790.0 ml 900 ml Output Urine Total 1625 ml 1400 ml Laboratory Tests Test 10/14/17 04:15 10/14/17 04:25 10/14/17 08:45 White Blood Count 12.1 K/UL (4.8-10.8) H Red Blood Count 3.81 M/UL (4.20-5.40) L Hemoglobin 10.4 G/DL (12.0-16.0) L Hematocrit 30.1 % (37.0-47.0) L Mean Corpuscular Volume 79 FL (80-99) L Mean Corpuscular Hemoglobin 27.2 PG (27.0-31.0) Mean Corpuscular Hemoglobin Concent 34.4 G/DL (32.0-36.0) Red Cell Distribution Width 12.3 % (11.6-14.8) Platelet Count 216 K/UL (150-450) Mean Platelet Volume 7.0 FL (6.5-10.1) Neutrophils (%) (Auto) 65.7 % (45.0-75.0) Lymphocytes (%) (Auto) 18.5 % (20.0-45.0) L Monocytes (%) (Auto) 14.6 % (1.0-10.0) H Eosinophils (%) (Auto) 0.2 % (0.0-3.0) Basophils (%) (Auto) 1.1 % (0.0-2.0) Sodium Level 132 MMOL/L (136-145) L Potassium Level 2.4 MMOL/L (3.5-5.1) *L Chloride Level 95 MMOL/L (98-107) L Carbon Dioxide Level 30 MMOL/L (21-32) Anion Gap 8 mmol/L (5-15) Blood Urea Nitrogen 38 mg/dL (7-18) H Creatinine 1.3 MG/DL (0.55-1.30) # Estimat Glomerular Filtration Rate 50.4 mL/min (>60) Glucose Level 107 MG/DL (74-106) H Uric Acid 8.5 MG/DL (2.6-7.2) H Calcium Level 7.2 MG/DL (8.5-10.1) #L Phosphorus Level 3.5 MG/DL (2.5-4.9) Magnesium Level 1.4 MG/DL (1.8-2.4) L Total Bilirubin 0.4 MG/DL (0.2-1.0) Aspartate Amino Transf (AST/SGOT) 14 U/L (15-37) L Alanine Aminotransferase (ALT/SGPT) 11 U/L (12-78) L Alkaline Phosphatase 124 U/L (46-116) H C-Reactive Protein, Quantitative 3.3 mg/dL (0.00-0.90) H 4.7 mg/dL (0.00-0.90) H Pro-B-Type Natriuretic Peptide 2558 pg/mL (0-125) H Total Protein 6.5 G/DL (6.4-8.2) Albumin 2.6 G/DL (3.4-5.0) L Globulin 3.9 g/dL Albumin/Globulin Ratio 0.7 (1.0-2.7) L Urine Eosinophils Rare Urine Random Sodium 66 mmol/L (20-110) Height (Feet): 5 Height (Inches): 4.00 Weight (Pounds): 120 Medications Current Medications Medications (Trade) Dose Ordered Sig/Martha Route PRN Reason Start Time Stop Time Status Last Admin Dose Admin Acetaminophen (Tylenol) 650 mg Q4H PRN ORAL fever 10/12/17 15:00 11/10/17 14:59 Dextrose (Dextrose 50%) 25 ml STAT PRN IV Hypoglycemia 10/12/17 15:00 11/11/17 14:59 Dextrose (Dextrose 50%) 50 ml STAT PRN IV Hypoglycemia 10/12/17 15:00 11/11/17 14:59 Dextrose/Sodium Chloride 1,000 ml @ 50 mls/hr Q20H IV 10/14/17 08:00 11/13/17 07:59 10/14/17 08:11 Diphenhydramine HCl (Benadryl) 25 mg Q6H PRN ORAL Itching/Pruritis 10/12/17 15:00 11/10/17 14:59 Ergocalciferol (Drisdol) 50,000 intlu QWEEK ORAL 10/14/17 09:00 11/13/17 08:59 10/14/17 09:16 Heparin Sodium (Porcine) (Heparin 5000 units/ml) 5,000 units EVERY 12 HOURS SUBQ 10/12/17 21:00 11/10/17 20:59 10/14/17 09:10 Lamotrigine (LaMICtal) 50 mg BIDLS ORAL 10/13/17 11:30 11/12/17 11:29 10/14/17 11:48 Lansoprazole (Prevacid) 30 mg DAILY ORAL 10/14/17 09:00 11/13/17 08:59 10/14/17 09:05 Lorazepam (Ativan 2mg/ml 1ml) 1 mg Q4H PRN IV agitation 10/12/17 15:00 10/18/17 14:59 10/13/17 20:45 Morphine Sulfate (Morphine Sulfate) 2 mg Q4H PRN IVP Severe Pain (Pain Scale 7-10) 10/12/17 15:00 10/19/17 14:59 10/14/17 13:47 Nicotine (Nicoderm) 1 patch Q24H TDERMAL 10/14/17 09:00 11/13/17 08:59 10/14/17 09:09 Nitroglycerin (Ntg) 0.4 mg Q5M X 3 DOSES PRN SL Prn Chest Pain 10/12/17 15:00 5/16/18 14:59 Ondansetron HCl (Zofran) 4 mg Q6H PRN IVP Nausea & Vomiting 10/12/17 15:00 11/10/17 14:59 10/13/17 16:02 Polyethylene Glycol (Miralax) 17 gm HSPRN PRN ORAL Constipation 10/12/17 15:00 11/10/17 14:59 Potassium Chloride (K-Dur) 40 meq TID ORAL 10/14/17 09:00 11/12/17 08:59 10/14/17 12:41 Promethazine HCl 25 mg/Sodium Chloride 56 ml @ 112 mls/hr Q8H PRN IV REFRACTORY NAUSEA 2ND LINE AGE 410/12/17 16:15 11/10/17 15:14 Quetiapine Fumarate (SEROquel) 25 mg TID ORAL 10/14/17 14:45 11/13/17 14:44 UNV Temazepam (Restoril) 15 mg HSPRN PRN ORAL Insomnia 10/12/17 15:00 10/18/17 14:59 10/13/17 23:32 Assessment/Plan Status: stable Assessment/Plan encephalopathy dementia with behavioral disturbance Seroquel 25mg tid Ativan prn raise the head So Tobias M.D. Oct 14, 2017 14:39
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
--- NOTE | 2017-10-14 14:50 | Nephrology Progress Note ---
Assessment/Plan Problem List: (1) ATN (acute tubular necrosis) (2) Hyponatremia (3) Seizure disorder (4) Diarrhea (5) FTT (failure to thrive) in adult Assessment Acute Renal Failure- Cr lowering Intractible Diarrhea Was on HCTZ and Stan inhibitor prior to admit COPD Sz disorder Plan Plan; mag and Phos and Ca supplement Has Duarte- D5NS: IV fluid 2D Echo- noted THANG - noted Urine studies- check am labs discussed with RN Subjective ROS Limited/Unobtainable: No Constitutional: Reports: malaise Objective Objective Last 24 Hour Vital Signs Date Time Temp Pulse Resp B/P (MAP) Pulse Ox O2 Delivery O2 Flow Rate FiO2 10/14/17 14:39 98.1 10/14/17 14:17 98.1 10/14/17 13:47 98.1 10/14/17 12:00 98.1 80 18 120/64 96 Nasal Cannula 2.0 98.1 10/14/17 12:00 69 10/14/17 09:32 98.1 10/14/17 08:00 98.1 57 18 102/48 97 Nasal Cannula 2.0 98.1 10/14/17 08:00 55 10/14/17 04:00 97.9 60 18 117/55 99 Nasal Cannula 2.0 97.9 10/14/17 03:35 68 10/14/17 00:00 71 10/14/17 00:00 98.0 69 18 131/61 98 Nasal Cannula 2.0 98.0 10/13/17 20:00 97 Nasal Cannula 2.0 28 10/13/17 20:00 Nasal Cannula 2.0 28 10/13/17 20:00 98.2 65 20 138/66 98 Nasal Cannula 2.0 98.2 10/13/17 20:00 66 10/13/17 17:05 98.1 10/13/17 16:00 98.1 67 21 127/64 97 98.1 10/13/17 16:00 67 Intake and Output 10/13/17 10/14/17 19:00 07:00 Intake Total 910.0 ml 1380 ml Output Total 1625 ml 1400 ml Balance -715.0 ml -20 ml Intake Oral 120 ml 480 ml IV Total 790.0 ml 900 ml Output Urine Total 1625 ml 1400 ml Laboratory Tests 10/14/17 04:15: White Blood Count 12.1H, Red Blood Count 3.81L, Hemoglobin 10.4L, Hematocrit 30.1L, Mean Corpuscular Volume 79L, Mean Corpuscular Hemoglobin 27.2, Mean Corpuscular Hemoglobin Concent 34.4, Red Cell Distribution Width 12.3, Platelet Count 216, Mean Platelet Volume 7.0, Neutrophils (%) (Auto) 65.7, Lymphocytes (% ) (Auto) 18.5L, Monocytes (%) (Auto) 14.6H, Eosinophils (%) (Auto) 0.2, Basophils (%) (Auto) 1.1, Sodium Level 132L, Potassium Level 2.4*L, Chloride Level 95L, Carbon Dioxide Level 30, Anion Gap 8, Blood Urea Nitrogen 38H, Creatinine 1.3#, Estimat Glomerular Filtration Rate 50.4, Glucose Level 107H, Uric Acid 8.5H, Calcium Level 7.2#L, Phosphorus Level 3.5, Magnesium Level 1.4L , Total Bilirubin 0.4, Aspartate Amino Transf (AST/SGOT) 14L, Alanine Aminotransferase (ALT/SGPT) 11L, Alkaline Phosphatase 124H, C-Reactive Protein, Quantitative 3.3H, Pro-B-Type Natriuretic Peptide 2558H, Total Protein 6.5, Albumin 2.6L, Globulin 3.9, Albumin/Globulin Ratio 0.7L 10/14/17 04:25: Urine Eosinophils Rare, Urine Random Sodium 66 10/14/17 08:45: C-Reactive Protein, Quantitative 4.7H Height (Feet): 5 Height (Inches): 4.00 Weight (Pounds): 120 General Appearance: no apparent distress Cardiovascular: regular rhythm Respiratory/Chest: decreased breath sounds Abdomen: soft Objective no change MARIELA PA Oct 14, 2017 14:49
[2017-10-14 16:00] VITALS: BP 130/67
[2017-10-14 20:00] VITALS: BP 132/67
[2017-10-15] VITALS: BP 110/91
[2017-10-15] MEDS: D5NS 1,000 ML IV SCH (03:55)
[2017-10-15 04:00] VITALS: BP 92/49
[2017-10-15 05:03] LABS: EOSINOPHILS % (AUTO) 1.9 % (0.0-3.0); HEMOGLOBIN 8.9 G/DL (12.0-16.0); LYMPHOCYTES % (AUTO) 30.3 % (20.0-45.0); MEAN CORPUSCULAR VOLUME 81 FL (80-99); MONOCYTES % (AUTO) 8.7 % (1.0-10.0); NEUTROPHILS % (AUTO) 58.3 % (45.0-75.0); PLATELET COUNT 218 K/UL (150-450); RED BLOOD COUNT 3.34 M/UL (4.20-5.40); RED CELL DISTRIBUTION WIDTH 12.3 % (11.6-14.8); WHITE BLOOD COUNT 12.1 K/UL (4.8-10.8)
[2017-10-15 05:16] LABS: ALANINE AMINOTRANSFERASE 9 U/L (12-78); ALBUMIN 2.1 G/DL (3.4-5.0); ALBUMIN/GLOBULIN RATIO 0.6 (1.0-2.7); ALKALINE PHOSPHATASE 110 U/L (46-116); ANION GAP 5 mmol/L (5-15); ASPARTATE AMINO TRANSFERASE 13 U/L (15-37); BILIRUBIN,TOTAL 0.3 MG/DL (0.2-1.0); BLOOD UREA NITROGEN 27 mg/dL (7-18); CALCIUM 9.3 MG/DL (8.5-10.1); CARBON DIOXIDE 26 MMOL/L (21-32); CHLORIDE 105 MMOL/L (98-107); CREATINE KINASE 86 U/L (26-308); CREATININE 1.1 MG/DL (0.55-1.30); GAMMA GLUTAMYL TRANSPEPTIDASE 51 U/L (5-85); PHOSPHORUS 2.5 MG/DL (2.5-4.9); POTASSIUM 5.2 MMOL/L (3.5-5.1); SODIUM 135 MMOL/L (136-145)
--- NOTE | 2017-10-15 06:59 | Nephrology Progress Note ---
Assessment/Plan Problem List: (1) ATN (acute tubular necrosis) (2) Hyponatremia (3) Seizure disorder (4) Diarrhea (5) FTT (failure to thrive) in adult Assessment Acute Renal Failure- Cr lower- Lytes and chemistries corrected- Intractible Diarrhea Was on HCTZ and Stan inhibitor prior to admit COPD Sz disorder Plan Plan; stable from renal stand mag and Phos and Ca supplement as needed DC PO KCL 2D Echo- noted THANG - noted Subjective ROS Limited/Unobtainable: No Constitutional: Reports: malaise Objective Objective Last 24 Hour Vital Signs Date Time Temp Pulse Resp B/P (MAP) Pulse Ox O2 Delivery O2 Flow Rate FiO2 10/15/17 04:00 72 10/15/17 04:00 98.0 72 20 92/49 93 Nasal Cannula 2.0 98.0 10/15/17 00:00 98.0 80 20 110/91 99 Nasal Cannula 2.0 98.0 10/14/17 20:00 80 10/14/17 20:00 97.9 79 20 132/67 99 Nasal Cannula 2.0 97.9 10/14/17 19:57 99 Nasal Cannula 2.0 28 10/14/17 19:57 Nasal Cannula 2.0 28 10/14/17 18:31 97.3 10/14/17 18:01 97.3 10/14/17 16:00 83 10/14/17 16:00 97.3 80 18 130/67 99 Nasal Cannula 2.0 97.3 10/14/17 15:38 98.1 10/14/17 14:39 98.1 10/14/17 13:47 98.1 10/14/17 12:00 98.1 80 18 120/64 96 Nasal Cannula 2.0 98.1 10/14/17 12:00 69 10/14/17 09:32 98.1 10/14/17 08:00 98.1 57 18 102/48 97 Nasal Cannula 2.0 98.1 10/14/17 08:00 55 Intake and Output 10/14/17 10/15/17 19:00 07:00 Intake Total 1485 ml 739.2 ml Output Total 1450 ml 950 ml Balance 35 ml -210.8 ml Intake Oral 740 ml 240 ml IV Total 745 ml 499.2 ml Output Urine Total 1450 ml 950 ml Laboratory Tests 10/14/17 08:45: C-Reactive Protein, Quantitative 4.7H 10/15/17 03:45: White Blood Count 12.1H, Red Blood Count 3.34L, Hemoglobin 8.9L, Hematocrit 27.0L, Mean Corpuscular Volume 81, Mean Corpuscular Hemoglobin 26.6L, Mean Corpuscular Hemoglobin Concent 32.9, Red Cell Distribution Width 12.3, Platelet Count 218, Mean Platelet Volume 5.9L, Neutrophils (%) (Auto) 58.3, Lymphocytes ( %) (Auto) 30.3, Monocytes (%) (Auto) 8.7, Eosinophils (%) (Auto) 1.9, Basophils (%) (Auto) 1.0, Sodium Level 135L, Potassium Level 5.2#H, Chloride Level 105, Carbon Dioxide Level 26, Anion Gap 5, Blood Urea Nitrogen 27H, Creatinine 1.1, Estimat Glomerular Filtration Rate > 60, Glucose Level 98, Uric Acid 6.2, Calcium Level 9.3#, Phosphorus Level 2.5, Magnesium Level 1.4L, Total Bilirubin 0.3, Gamma Glutamyl Transpeptidase 51, Aspartate Amino Transf (AST/SGOT) 13L, Alanine Aminotransferase (ALT/SGPT) 9L, Alkaline Phosphatase 110, Total Creatine Kinase 86, Pro-B-Type Natriuretic Peptide 5154H, Total Protein 5.9L, Albumin 2.1L, Globulin 3.8, Albumin/Globulin Ratio 0.6L Height (Feet): 5 Height (Inches): 4.00 Weight (Pounds): 120 General Appearance: no apparent distress Objective no change MARIELA PA Oct 15, 2017 06:59
[2017-10-15 08:00] VITALS: BP 97/52
[2017-10-15] MEDS: Heparin 5000 units/ml inj SUBQ SCH ×2 (09:05→21:57)
--- NOTE | 2017-10-15 10:51 | GI Progress Note ---
Assessment/Plan Problems: (1) Anemia ICD Codes: D64.9 - Anemia SNOMED: 528352848 (2) Severe malnutrition ICD Codes: E43 - Unspecified severe protein-calorie malnutrition SNOMED: 29316653 (3) Renal insufficiency ICD Codes: N28.9 - Disorder of kidney and ureter, unspecified SNOMED: 749484662, 954351169 (4) Dehydration ICD Codes: E86.0 - Dehydration SNOMED: 48043923 (5) FTT (failure to thrive) in adult ICD Codes: R62.7 - Adult failure to thrive SNOMED: 818542536 (6) Weakness ICD Codes: R53.1 - Weakness SNOMED: 70203405 (7) Altered level of consciousness ICD Codes: R40.4 - Transient alteration of awareness SNOMED: 2281105 Status: progressing Status Narrative Discussed with Dr. Sanchez. Assessment/Plan CT AP and abdominal U/S reviewed >> will defer MRCP given no transaminitis utox >> positive for cocaine cdiff negative electrolyte correction per nephro supportive care fu stool studies adv to renal soft diet, push PO ppi prn transfusions OT/PT evaluation fu labs Subjective Subjective feels better, but still weak Objective Last 24 Hour Vital Signs Date Time Temp Pulse Resp B/P (MAP) Pulse Ox O2 Delivery O2 Flow Rate FiO2 10/15/17 08:00 98.0 72 18 97/52 96 Nasal Cannula 2.0 98.0 10/15/17 04:00 72 10/15/17 04:00 98.0 72 20 92/49 93 Nasal Cannula 2.0 98.0 10/15/17 00:00 98.0 80 20 110/91 99 Nasal Cannula 2.0 98.0 10/14/17 20:00 80 10/14/17 20:00 97.9 79 20 132/67 99 Nasal Cannula 2.0 97.9 10/14/17 19:57 99 Nasal Cannula 2.0 28 10/14/17 19:57 Nasal Cannula 2.0 28 10/14/17 18:31 97.3 10/14/17 18:01 97.3 10/14/17 16:00 83 10/14/17 16:00 97.3 80 18 130/67 99 Nasal Cannula 2.0 97.3 10/14/17 15:38 98.1 10/14/17 14:39 98.1 10/14/17 13:47 98.1 10/14/17 12:00 98.1 80 18 120/64 96 Nasal Cannula 2.0 98.1 10/14/17 12:00 69 Intake and Output 10/14/17 10/15/17 19:00 07:00 Intake Total 1485 ml 839.2 ml Output Total 1450 ml 950 ml Balance 35 ml -110.8 ml Intake Oral 740 ml 240 ml IV Total 745 ml 599.2 ml Output Urine Total 1450 ml 950 ml Laboratory Tests Test 10/15/17 03:45 White Blood Count 12.1 K/UL (4.8-10.8) H Red Blood Count 3.34 M/UL (4.20-5.40) L Hemoglobin 8.9 G/DL (12.0-16.0) L Hematocrit 27.0 % (37.0-47.0) L Mean Corpuscular Volume 81 FL (80-99) Mean Corpuscular Hemoglobin 26.6 PG (27.0-31.0) L Mean Corpuscular Hemoglobin Concent 32.9 G/DL (32.0-36.0) Red Cell Distribution Width 12.3 % (11.6-14.8) Platelet Count 218 K/UL (150-450) Mean Platelet Volume 5.9 FL (6.5-10.1) L Neutrophils (%) (Auto) 58.3 % (45.0-75.0) Lymphocytes (%) (Auto) 30.3 % (20.0-45.0) Monocytes (%) (Auto) 8.7 % (1.0-10.0) Eosinophils (%) (Auto) 1.9 % (0.0-3.0) Basophils (%) (Auto) 1.0 % (0.0-2.0) Sodium Level 135 MMOL/L (136-145) L Potassium Level 5.2 MMOL/L (3.5-5.1) #H Chloride Level 105 MMOL/L (98-107) Carbon Dioxide Level 26 MMOL/L (21-32) Anion Gap 5 mmol/L (5-15) Blood Urea Nitrogen 27 mg/dL (7-18) H Creatinine 1.1 MG/DL (0.55-1.30) Estimat Glomerular Filtration Rate > 60 mL/min (>60) Glucose Level 98 MG/DL (74-106) Uric Acid 6.2 MG/DL (2.6-7.2) Calcium Level 9.3 MG/DL (8.5-10.1) # Phosphorus Level 2.5 MG/DL (2.5-4.9) Magnesium Level 1.4 MG/DL (1.8-2.4) L Total Bilirubin 0.3 MG/DL (0.2-1.0) Gamma Glutamyl Transpeptidase 51 U/L (5-85) Aspartate Amino Transf (AST/SGOT) 13 U/L (15-37) L Alanine Aminotransferase (ALT/SGPT) 9 U/L (12-78) L Alkaline Phosphatase 110 U/L (46-116) Total Creatine Kinase 86 U/L (26-308) Pro-B-Type Natriuretic Peptide 5154 pg/mL (0-125) H Total Protein 5.9 G/DL (6.4-8.2) L Albumin 2.1 G/DL (3.4-5.0) L Globulin 3.8 g/dL Albumin/Globulin Ratio 0.6 (1.0-2.7) L Height (Feet): 5 Height (Inches): 4.00 Weight (Pounds): 120 General Appearance: no apparent distress, alert, thin Cardiovascular: normal rate Respiratory/Chest: normal breath sounds, no respiratory distress Abdominal Exam: normal bowel sounds, non tender, soft Extremities: non-tender Valentina Matos N.P. Oct 15, 2017 10:51
--- NOTE | 2017-10-15 11:15 | Pulmonology Progress Note ---
Assessment/Plan Problems: (1) ATN (acute tubular necrosis) (2) Hyponatremia (3) Metabolic acidosis (4) Dehydration (5) Severe malnutrition Assessment/Plan renal function improving CT and abd US reviewed GI note reviewed unknown cause of acidosis and ATN ( Cocaine+) renal function improving stop K supplement dvt prophylaxis pt/ot dc planning for short term rehab Subjective Interval Events: more awake, eating better Allergies: Coded Allergies: No Known Allergies (Unverified , 09/12/12) Objective Last 24 Hour Vital Signs Date Time Temp Pulse Resp B/P (MAP) Pulse Ox O2 Delivery O2 Flow Rate FiO2 10/15/17 08:00 98.0 72 18 97/52 96 Nasal Cannula 2.0 98.0 10/15/17 04:00 72 10/15/17 04:00 98.0 72 20 92/49 93 Nasal Cannula 2.0 98.0 10/15/17 00:00 98.0 80 20 110/91 99 Nasal Cannula 2.0 98.0 10/14/17 20:00 80 10/14/17 20:00 97.9 79 20 132/67 99 Nasal Cannula 2.0 97.9 10/14/17 19:57 99 Nasal Cannula 2.0 28 10/14/17 19:57 Nasal Cannula 2.0 28 10/14/17 18:31 97.3 10/14/17 18:01 97.3 10/14/17 16:00 83 10/14/17 16:00 97.3 80 18 130/67 99 Nasal Cannula 2.0 97.3 10/14/17 15:38 98.1 10/14/17 14:39 98.1 10/14/17 13:47 98.1 10/14/17 12:00 98.1 80 18 120/64 96 Nasal Cannula 2.0 98.1 10/14/17 12:00 69 Intake and Output 10/14/17 10/15/17 19:00 07:00 Intake Total 1485 ml 839.2 ml Output Total 1450 ml 950 ml Balance 35 ml -110.8 ml Intake Oral 740 ml 240 ml IV Total 745 ml 599.2 ml Output Urine Total 1450 ml 950 ml General Appearance: cachetic HEENT: normocephalic, atraumatic Respiratory/Chest: chest wall non-tender, lungs clear Cardiovascular: normal peripheral pulses, normal rate Abdomen: normal bowel sounds, soft, non tender Genitourinary: normal external genitalia Extremities: no cyanosis Skin: no rash Neurologic/Psychiatric: dermatologist and dermatopathologist II-XII grossly normal Microbiology Date/Time Source Procedure Growth Status 10/14/17 06:00 Abdomen Gram Stain - Final Resulted 10/14/17 06:00 Wound Culture - Preliminary Gram Negative Bacillus 1 Resulted Laboratory Tests 10/15/17 03:45: White Blood Count 12.1H, Red Blood Count 3.34L, Hemoglobin 8.9L, Hematocrit 27.0L, Mean Corpuscular Volume 81, Mean Corpuscular Hemoglobin 26.6L, Mean Corpuscular Hemoglobin Concent 32.9, Red Cell Distribution Width 12.3, Platelet Count 218, Mean Platelet Volume 5.9L, Neutrophils (%) (Auto) 58.3, Lymphocytes ( %) (Auto) 30.3, Monocytes (%) (Auto) 8.7, Eosinophils (%) (Auto) 1.9, Basophils (%) (Auto) 1.0, Sodium Level 135L, Potassium Level 5.2#H, Chloride Level 105, Carbon Dioxide Level 26, Anion Gap 5, Blood Urea Nitrogen 27H, Creatinine 1.1, Estimat Glomerular Filtration Rate > 60, Glucose Level 98, Uric Acid 6.2, Calcium Level 9.3#, Phosphorus Level 2.5, Magnesium Level 1.4L, Total Bilirubin 0.3, Gamma Glutamyl Transpeptidase 51, Aspartate Amino Transf (AST/SGOT) 13L, Alanine Aminotransferase (ALT/SGPT) 9L, Alkaline Phosphatase 110, Total Creatine Kinase 86, Pro-B-Type Natriuretic Peptide 5154H, Total Protein 5.9L, Albumin 2.1L, Globulin 3.8, Albumin/Globulin Ratio 0.6L Current Medications Medications (Trade) Dose Ordered Sig/Martha Route PRN Reason Start Time Stop Time Status Last Admin Dose Admin Acetaminophen (Tylenol) 650 mg Q4H PRN ORAL fever 10/12/17 15:00 11/10/17 14:59 10/14/17 14:39 Dextrose (Dextrose 50%) 25 ml STAT PRN IV Hypoglycemia 10/12/17 15:00 11/11/17 14:59 Dextrose (Dextrose 50%) 50 ml STAT PRN IV Hypoglycemia 10/12/17 15:00 5/17/18 14:59 Dextrose/Sodium Chloride 1,000 ml @ 50 mls/hr Q20H IV 10/14/17 08:00 11/13/17 07:59 10/15/17 03:55 Diphenhydramine HCl (Benadryl) 25 mg Q6H PRN ORAL Itching/Pruritis 10/12/17 15:00 11/10/17 14:59 Ergocalciferol (Drisdol) 50,000 intlu QWEEK ORAL 10/14/17 09:00 11/13/17 08:59 10/14/17 09:16 Heparin Sodium (Porcine) (Heparin 5000 units/ml) 5,000 units EVERY 12 HOURS SUBQ 10/12/17 21:00 11/10/17 20:59 10/15/17 09:05 Lamotrigine (LaMICtal) 50 mg BIDLS ORAL 10/13/17 11:30 11/12/17 11:29 10/15/17 11:01 Lansoprazole (Prevacid) 30 mg DAILY ORAL 10/14/17 09:00 11/13/17 08:59 10/15/17 08:30 Lorazepam (Ativan 2mg/ml 1ml) 1 mg Q4H PRN IV agitation 10/12/17 15:00 10/18/17 14:59 10/13/17 20:45 Morphine Sulfate (Morphine Sulfate) 2 mg Q4H PRN IVP Severe Pain (Pain Scale 7-10) 10/12/17 15:00 10/19/17 14:59 10/14/17 18:01 Nicotine (Nicoderm) 1 patch Q24H TDERMAL 10/14/17 09:00 11/13/17 08:59 10/15/17 08:30 Nitroglycerin (Ntg) 0.4 mg Q5M X 3 DOSES PRN SL Prn Chest Pain 10/12/17 15:00 11/10/17 14:59 Ondansetron HCl (Zofran) 4 mg Q6H PRN IVP Nausea & Vomiting 10/12/17 15:00 11/10/17 14:59 10/14/17 18:01 Polyethylene Glycol (Miralax) 17 gm HSPRN PRN ORAL Constipation 10/12/17 15:00 11/10/17 14:59 Promethazine HCl 25 mg/Sodium Chloride 56 ml @ 112 mls/hr Q8H PRN IV REFRACTORY NAUSEA 2ND LINE AGE 410/12/17 16:15 11/10/17 15:14 Quetiapine Fumarate (SEROquel) 25 mg Q8HR ORAL 10/14/17 14:45 11/13/17 14:44 10/15/17 05:47 Temazepam (Restoril) 15 mg HSPRN PRN ORAL Insomnia 10/12/17 15:00 10/18/17 14:59 10/13/17 23:32 Dinesh Rice MD Oct 15, 2017 11:15
[2017-10-15 12:00] VITALS: BP 119/62
--- NOTE | 2017-10-15 12:47 | General Progress Note ---
Assessment/Plan Status: stable, progressing Assessment/Plan encephalopathy improving agitation -cont Seroquel -provided ro/st Subjective Date patient seen: Oct 15, 2017 Neurologic/Psychiatric: Reports: anxiety, depressed, emotional problems Allergies: Coded Allergies: No Known Allergies (Unverified , 09/12/12) Subjective the pt is calmer less agitated. Not yelling today. decrease med seeking behavior. Objective Last 24 Hour Vital Signs Date Time Temp Pulse Resp B/P (MAP) Pulse Ox O2 Delivery O2 Flow Rate FiO2 10/15/17 12:00 98.1 78 19 119/62 96 Nasal Cannula 2.0 98.1 10/15/17 08:54 Nasal Cannula 2.0 28 10/15/17 08:53 97 Nasal Cannula 2.0 28 10/15/17 08:00 98.0 72 18 97/52 96 Nasal Cannula 2.0 98.0 10/15/17 08:00 81 10/15/17 04:00 72 10/15/17 04:00 98.0 72 20 92/49 93 Nasal Cannula 2.0 98.0 10/15/17 00:00 98.0 80 20 110/91 99 Nasal Cannula 2.0 98.0 10/14/17 20:00 80 10/14/17 20:00 97.9 79 20 132/67 99 Nasal Cannula 2.0 97.9 10/14/17 19:57 99 Nasal Cannula 2.0 28 10/14/17 19:57 Nasal Cannula 2.0 28 10/14/17 18:31 97.3 10/14/17 18:01 97.3 10/14/17 16:00 83 10/14/17 16:00 97.3 80 18 130/67 99 Nasal Cannula 2.0 97.3 10/14/17 15:38 98.1 10/14/17 14:39 98.1 10/14/17 13:47 98.1 Intake and Output 10/14/17 10/15/17 19:00 07:00 Intake Total 1485 ml 839.2 ml Output Total 1450 ml 950 ml Balance 35 ml -110.8 ml Intake Oral 740 ml 240 ml IV Total 745 ml 599.2 ml Output Urine Total 1450 ml 950 ml Laboratory Tests 10/15/17 03:45: White Blood Count 12.1H, Red Blood Count 3.34L, Hemoglobin 8.9L, Hematocrit 27.0L, Mean Corpuscular Volume 81, Mean Corpuscular Hemoglobin 26.6L, Mean Corpuscular Hemoglobin Concent 32.9, Red Cell Distribution Width 12.3, Platelet Count 218, Mean Platelet Volume 5.9L, Neutrophils (%) (Auto) 58.3, Lymphocytes ( %) (Auto) 30.3, Monocytes (%) (Auto) 8.7, Eosinophils (%) (Auto) 1.9, Basophils (%) (Auto) 1.0, Sodium Level 135L, Potassium Level 5.2#H, Chloride Level 105, Carbon Dioxide Level 26, Anion Gap 5, Blood Urea Nitrogen 27H, Creatinine 1.1, Estimat Glomerular Filtration Rate > 60, Glucose Level 98, Uric Acid 6.2, Calcium Level 9.3#, Phosphorus Level 2.5, Magnesium Level 1.4L, Total Bilirubin 0.3, Gamma Glutamyl Transpeptidase 51, Aspartate Amino Transf (AST/SGOT) 13L, Alanine Aminotransferase (ALT/SGPT) 9L, Alkaline Phosphatase 110, Total Creatine Kinase 86, Pro-B-Type Natriuretic Peptide 5154H, Total Protein 5.9L, Albumin 2.1L, Globulin 3.8, Albumin/Globulin Ratio 0.6L Height (Feet): 5 Height (Inches): 4.00 Weight (Pounds): 120 General Appearance: WD/WN, no apparent distress, alert Neurologic: oriented x 3, responsive, normal mood/affect So Tobias M.D. Oct 15, 2017 12:47
[2017-10-15] MEDS: Morphine Sulfate 4mg/ml Inj IVP PRN ×2 (14:46→16:41)
[2017-10-15 16:00] VITALS: BP 110/61
[2017-10-15 20:00] VITALS: BP 106/50
[2017-10-15] MEDS ORDERED: Tubing IV Secondary IV ONE (22:29)
[2017-10-15] MEDS ORDERED: NS 275ml ONE (22:29)
[2017-10-15] MEDS ORDERED: D5NS 1000ml IV ONE (22:29)
--- NOTE | 2017-10-19 13:04 | Discharge Summary ---
Discharge Summary Hospital Course Date of Admission Oct 11, 2017 at 08:42 Date of Discharge Oct 15, 2017 at 22:30 Admitting Diagnosis FTT HPI Lexi Campbell is a 62 year old female who was admitted on Oct 11, 2017 at 08 :42 for Failure To Thrive,Weakness Hospital Course [id number] Discharge Discharge Disposition Patient was discharged to SNF/Subacute Facility(03) Evelyn Chapman NP Oct 19, 2017 13:04
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
== END 2017-10-15 22:30 | DRG 682 ==
LOC: EDBD 08:22 → EMR 08:36 → 2E 08:42 → 4E 08:42 → UNDOADMIN 08:42 → EDBEDREQ 08:43 → 2E 12:49 → ICU 10-12 04:17 → 2W 10-12 16:07 → CMPBEDREQ 10-13 04:10 → 2W 10-13 04:17
DX: N17.0 Acute kidney failure with tubular necrosis (principal); E43 Unspecified severe protein-calorie malnutrition; E87.1 Hypo-osmolality and hyponatremia; E87.2 Acidosis; F03.91 Unspecified dementia, unspecified severity, with behavioral disturbance; Z68.1 Body mass index [BMI] 19.9 or less, adult; E86.0 Dehydration; R19.7 Diarrhea, unspecified; R62.7 Adult failure to thrive; R53.1 Weakness; I10 Essential (primary) hypertension; I69.398 Other sequelae of cerebral infarction; H53.8 Other visual disturbances; J44.9 Chronic obstructive pulmonary disease, unspecified; E11.9 Type 2 diabetes mellitus without complications; G40.909 Epilepsy, unspecified, not intractable, without status epilepticus; I36.1 Nonrheumatic tricuspid (valve) insufficiency; E87.6 Hypokalemia; E83.51 Hypocalcemia; L89.152 Pressure ulcer of sacral region, stage 2; K80.20 Calculus of gallbladder without cholecystitis without obstruction
CPT/HCPCS: 36415; 36600; 71045; 74176; 76700; 80053; 80061; 80307; 81001; 82150; 82533; 82550; 82607; 82746; 82803; 82962; 82977; 83036; 83690; 83735; 83880; 83930; 83935; 84100; 84300; 84439; 84443; 84481; 84484; 84550; 85007; 85025; 85730; 86140; 87070; 87181; 87205; 87324; 89050; 93005; 93306; 94760; 99285; J2405; J2765; J8499

== ENCOUNTER 2018-06-28 17:14 | Inpatient (IN) | payer MEDICARE, MEDICAID ==
[~2018-06-28] VITALS: Ht 167.6 cm; Wt 63.5 kg
[2018-06-28 17:07] VITALS: BP 140/94
--- NOTE | 2018-06-28 17:07 | NUR ---
ED Nurse Note: PT BROUGHT IN BY R34 DUE TO SEIZURE AT HOME. PER EMS, PT ALSO HAD A FULL BODY TONIC CLONIC SEIZURE EN ROUTE. VERSED 5MG ADMINISTERED BY EMS. PT POSTICTAL, NONVERBAL, AND HAS TREMORS. VSS. O2 SAT 99% WITH NO SIGNS OF RESPIRATORY DISTRESS, NO O2 ADMINISTERED AT THIS TIME. SIDE RAILS UP AND PADS IN PLACE.
[~2018-06-28 17:14] MED LIST changes: +AMBIEN5 MG ORAL; +OMEPRAZOLE10 M1 ORAL; +UNOBMED
--- NOTE | 2018-06-28 17:14 | NUR ---
ED Nurse Note: DRESSING NOTED ON MEDIAL ABDOMEN. TWO CIRCULAR OPEN LESIONS NOTED. NO DRAINAGE NOTED. SKIN LOOKS CLEAN AND DRY. NO SIGNS OF INFECTION.
--- NOTE | 2018-06-28 17:26 | Emergency Room Report ---
History of Present Illness General Chief Complaint: Seizure Source: EMS Present Illness HPI Patient was brought in with reports of seizure activity History of present illness is limited Paramedics report that neighbor contacted them Patient reportedly also had a possible fall so she did with this Unclear from what height and the type of injury Patient was given 5 mg of Versed and brought to the emergency room Unknown medications Patient herself is postictal not able to provide any history Allergies: Coded Allergies: No Known Allergies (Unverified , 09/12/12) Patient History Limited by: medical condition Past Medical History: see triage record Pertinent Family History: unable to obtain Reviewed Nursing Documentation: PMH: Agreed; PSxH: Agreed Nursing Documentation-PMH Hx Hypertension: Yes Hx Pacemaker: No Hx Asthma: Yes Hx COPD: Yes Hx Diabetes: Yes Hx Cancer: No Hx Gastrointestinal Problems: Yes - DIVERTICULITS, FISTULA Hx Neurological Problems: Yes - 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 Hx Cerebrovascular Accident: Yes Hx Transient Ischemic Attacks: No Hx Dementia: No Hx Alzheimer's Disease: No Hx Parkinson's Disease: No Hx Meningitis: No Hx Encephalitis: No Hx Seizures: Yes Hx Epilepsy: No Hx Multiple Sclerosis: No Hx Cerebral Palsy: No Hx Amyotrophic Lat Sclerosis: No Hx Guillian-[place] Syndrome: No Hx Paralysis: No Hx Peripheral Neuropathy: No Hx Spinal Cord Injury: No Hx Head Trauma: No Hx Traumatic Brain Injury: No Hx Memory Loss: No Hx Concentration Difficulty: No Hx Speech Problem: No Hx Tremors: No Hx Vertigo: No Hx Dizziness: No Hx Syncope: No Hx Headaches: No Hx Aphasia: No Hx Dysphasia: No Hx Numbness: No Hx Weakness: Yes Hx Fatigue: No Hx Neurologic Surgery: No Hx Brain Shunt: No Review of Systems All Other Systems: limited - Other than the ones mentioned in the history of present illness all others are reviewed however they do stay limited due to the patient's mental status Physical Exam Vital Signs Date Time Temp Pulse Resp B/P (MAP) Pulse Ox O2 Delivery O2 Flow Rate FiO2 06/28/18 17:07 114 20 140/94 99 Room Air 06/28/18 17:08 98.1 Sp02 EP Interpretation: reviewed, normal General Appearance: other - Patient is postictal somnolent, has received 5 mg of Versed, Head: normocephalic, atraumatic Eyes: bilateral eye PERRL, bilateral eye EOMI ENT: dry mucus membranes Neck: supple Respiratory: lungs clear, no respiratory distress, no retraction Cardiovascular #1: regular rate, rhythm, no edema Gastrointestinal: non tender, soft, other - Dehisced wound mid abdominal with dressing on top appears chronic Musculoskeletal: decreased range of motion - Patient also has a cast on the right forearm, other - Patient does not follow commands at this time Neurologic: responsive - 2 physical stimuli otherwise nonverbal not following commands Skin: normal color, no rash Lymphatic: no adenopathy Medical Decision Making Diagnostic Impression: Primary Impression: Seizure disorder Additional Impressions: Encephalopathy acute Dehydration ER Course Given the patient's history and presentation multiple differentials considered review of medical records also reveals the patient was on Lamictal and has had previous CVA and long-standing seizure disorder Patient on reevaluation is doing significantly better There is no further sign of seizure activity thus far CT imaging reveals previous large CVA C-spine does not show any acute pathology Given the patient's prolonged post ictal state and multiple medications she will require further inpatient care Labs Test 06/28/18 17:38 06/28/18 17:55 White Blood Count 12.1 K/UL (4.8-10.8) Red Blood Count 3.82 M/UL (4.20-5.40) Hemoglobin 10.9 G/DL (12.0-16.0) Hematocrit 33.8 % (37.0-47.0) Mean Corpuscular Volume 88 FL (80-99) Mean Corpuscular Hemoglobin 28.6 PG (27.0-31.0) Mean Corpuscular Hemoglobin Concent 32.4 G/DL (32.0-36.0) Red Cell Distribution Width 12.3 % (11.6-14.8) Platelet Count 400 K/UL (150-450) Mean Platelet Volume 5.1 FL (6.5-10.1) Neutrophils (%) (Auto) 59.0 % (45.0-75.0) Lymphocytes (%) (Auto) 29.4 % (20.0-45.0) Monocytes (%) (Auto) 8.3 % (1.0-10.0) Eosinophils (%) (Auto) 1.3 % (0.0-3.0) Basophils (%) (Auto) 2.1 % (0.0-2.0) Sodium Level 132 MMOL/L (136-145) Potassium Level 3.7 MMOL/L (3.5-5.1) Chloride Level 93 MMOL/L (98-107) Carbon Dioxide Level 25 MMOL/L (21-32) Anion Gap 14 mmol/L (5-15) Blood Urea Nitrogen 11 mg/dL (7-18) Creatinine 1.7 MG/DL (0.55-1.30) Estimat Glomerular Filtration Rate 36.8 mL/min (>60) Glucose Level 94 MG/DL (74-106) Calcium Level 11.2 MG/DL (8.5-10.1) Total Bilirubin 0.3 MG/DL (0.2-1.0) Aspartate Amino Transf (AST/SGOT) 13 U/L (15-37) Alanine Aminotransferase (ALT/SGPT) 17 U/L (12-78) Alkaline Phosphatase 121 U/L (46-116) Total Creatine Kinase 99 U/L (26-308) Creatine Kinase MB 0.9 NG/ML (0.0-3.6) Creatine Kinase MB Relative Index 0.9 Troponin I 0.000 ng/mL (0.000-0.056) Total Protein 7.9 G/DL (6.4-8.2) Albumin 4.1 G/DL (3.4-5.0) Globulin 3.8 g/dL Albumin/Globulin Ratio 1.1 (1.0-2.7) Triglycerides Level 61 MG/DL (30-150) Cholesterol Level 144 MG/DL (< 200) LDL Cholesterol 52 mg/dL (<100) HDL Cholesterol 85 MG/DL (40-60) Cholesterol/HDL Ratio 1.7 (3.3-4.4) Urine Color Yellow Urine Appearance Slightly cloudy Urine pH 5 (4.5-8.0) Urine Specific [place] 1.020 (1.005-1.035) Urine Protein 4+ (NEGATIVE) Urine Glucose (UA) Negative (NEGATIVE) Urine Ketones Negative (NEGATIVE) Urine Blood 3+ (NEGATIVE) Urine Nitrite Negative (NEGATIVE) Urine Bilirubin Negative (NEGATIVE) Urine Urobilinogen Normal MG/DL (0.0-1.0) Urine Leukocyte Esterase 2+ (NEGATIVE) Urine RBC 2-4 /HPF (0 - 2) Urine WBC 5-10 /HPF (0 - 2) Urine Squamous Epithelial Cells Few /LPF (NONE/OCC) Urine Amorphous Sediment Few /LPF (NONE) Urine Bacteria Moderate /HPF (NONE) Rhythm Strip Diag. Results EP Interpretation: yes Rate: 110 Rhythm: no PVC's, no ectopy, other - Sinus tach Chest X-Ray Diagnostic Results Chest X-Ray Diagnostic Results : Chest X-Ray Ordered: Yes # of Views/Limited/Complete: 1 View Indication: Chest Pain EP Interpretation: Yes Interpretation: no consolidation, no effusion, no pneumothorax Impression: No acute disease Electronically Signed by: Beau Loepz DO CT/MRI/US Diagnostic Results CT/MRI/US Diagnostic Results : Impression CT head: no acute disease CT C-spine: IMPRESSION: No acute fracture or malalignment. Last Vital Signs Date Time Temp Pulse Resp B/P (MAP) Pulse Ox O2 Delivery O2 Flow Rate FiO2 06/28/18 17:08 98.1 120 24 220/124 98 Room Air Status: improved Disposition: ADMITTED INPATIENT Condition: Serious Beau Lopez DO Jun 28, 2018 17:26
[2018-06-28] MEDS ORDERED: LORazepam Inj 2mg/ml 1ml IV ONE (17:30)
[2018-06-28] MEDS ORDERED: levETIRAcetam 1,000mg/NS100ml 100 ML IVPB ONE (17:30)
--- NOTE | 2018-06-28 17:30 | NUR ---
ED Nurse Note: FEMORAL CENTRAL LINE PLACED AND BLOOD DRAWN BY DR. MOSCOSO. IV FLUIDS AND MEDICATIONS ADMISTERED THROUGH CENTRAL LINE.
[2018-06-28] MEDS ORDERED: UNOBMED (17:53)
--- NOTE | 2018-06-28 18:06 | NUR ---
ED Nurse Note: AFTER MEDICATIONS, PT SLOWLY STARTING TO SPEAK. PT ABLE TO SAY HER NAME. PT IS NOW AOX1. PT STILL NOT ORIENTED TO TIME, PLACE, AND SITUATION.
[2018-06-28 18:08] LABS: ANION GAP 14 mmol/L (5-15); BLOOD UREA NITROGEN 11 mg/dL (7-18); CALCIUM 11.2 MG/DL (8.5-10.1); CARBON DIOXIDE 25 MMOL/L (21-32); CHLORIDE 93 MMOL/L (98-107); CREATININE 1.7 MG/DL (0.55-1.30); POTASSIUM 3.7 MMOL/L (3.5-5.1); SODIUM 132 MMOL/L (136-145)
--- NOTE | 2018-06-28 18:08 | NUR ---
ED Nurse Note: PT NOW ABLE TO ANSWER BASIC QUESTIONS. PT ADMITS TO NOT BEING COMPLIANT WITH SEIZURE MEDICATIONS. PT DOES NOT WISH FOR FAMILY TO BE CONTACTED AT THIS TIME.
--- NOTE | 2018-06-28 18:09 | NUR ---
ED Nurse Note: PT TO CT VIA BIPIN.
[2018-06-28 18:21] LABS: ALANINE AMINOTRANSFERASE 17 U/L (12-78); ALBUMIN 4.1 G/DL (3.4-5.0); ALBUMIN/GLOBULIN RATIO 1.1 (1.0-2.7); ALKALINE PHOSPHATASE 121 U/L (46-116); ASPARTATE AMINO TRANSFERASE 13 U/L (15-37); BILIRUBIN,TOTAL 0.3 MG/DL (0.2-1.0); CHOLESTEROL 144 MG/DL (< 200); CKMB 0.9 NG/ML (0.0-3.6); CREATINE KINASE 99 U/L (26-308); HDL CHOLESTEROL 85 MG/DL (40-60); TRIGLYCERIDES 61 MG/DL (30-150)
[2018-06-28 18:23] LABS: BASOPHILS % (AUTO) 2.1 % (0.0-2.0); EOSINOPHILS % (AUTO) 1.3 % (0.0-3.0); HEMATOCRIT 33.8 % (37.0-47.0); HEMOGLOBIN 10.9 G/DL (12.0-16.0); LYMPHOCYTES % (AUTO) 29.4 % (20.0-45.0); MEAN CORPUSCULAR VOLUME 88 FL (80-99); MONOCYTES % (AUTO) 8.3 % (1.0-10.0); PLATELET COUNT 400 K/UL (150-450); RED BLOOD COUNT 3.82 M/UL (4.20-5.40); RED CELL DISTRIBUTION WIDTH 12.3 % (11.6-14.8); WHITE BLOOD COUNT 12.1 K/UL (4.8-10.8)
[2018-06-28 18:23] LABS: APPEARANCE,URINE SLIGHTLY CLOUDY; BILIRUBIN, URINE NEGATIVE (NEGATIVE); COLOR,URINE YELLOW; GLUCOSE, URINE (UA) NEGATIVE (NEGATIVE); KETONES,URINE NEGATIVE (NEGATIVE); LEUKOCYTE ESTERASE ,URINE 2+ (NEGATIVE); NITRITE,URINE NEGATIVE (NEGATIVE); PH,URINE 5 (4.5-8.0); PROTEIN,URINE 4+ (NEGATIVE); UROBILINOGEN,URINE NORMAL MG/DL (0.0-1.0)
--- NOTE | 2018-06-28 18:40 | NUR ---
ED Nurse Note: PT BECOMING MORE ALERT. AOX2 AT THIS TIME. PT ORIENTED TO SELF AND PLACE. STILL NOT ORIENTED TO TIME OR SITUATION.
[2018-06-28 18:45] VITALS: BP 147/84
--- NOTE | 2018-06-28 18:54 | Diagnostic Imaging Report ---
EXAM: CT Cervical Spine Without Intravenous Contrast CLINICAL HISTORY: Seizure TECHNIQUE: Axial computed tomography images of the cervical spine without intravenous contrast. CTDI is 0.25, 11.77 mGy and DLP is 255 mGy-cm. One or more of the following dose reduction techniques were used: automated exposure control, adjustment of the mA and/or kV according to patient size, use of iterative reconstruction technique. COMPARISON: No relevant prior studies available. FINDINGS: Vertebrae: No acute fracture or malalignment. Straightening of the normal cervical lordosis. Discs/spinal canal/neural foramina: Disc height loss, osteophytes, uncovertebral spurs, and facet arthropathy. Multilevel foraminal narrowing. No significant osseous spinal stenosis. Soft tissues: Unremarkable. IMPRESSION: No acute fracture or malalignment.
--- NOTE | 2018-06-28 18:57 | Diagnostic Imaging Report ---
EXAM: CT Head Without Intravenous Contrast CLINICAL HISTORY: SZ TECHNIQUE: Axial computed tomography images of the head/brain without intravenous contrast. CTDI is 0.15, 70.38 mGy and DLP is 1376 mGy-cm. One or more of the following dose reduction techniques were used: automated exposure control, adjustment of the mA and/or kV according to patient size, use of iterative reconstruction technique. COMPARISON: 09/16/2015 FINDINGS: Brain: No acute intracranial hemorrhage, loss of edwards-white differentiation, or significant mass effect. Nonspecific areas of hypoattenuation in the periventricular white matter likely represent the sequela of chronic small vessel ischemic disease. Encephalomalacia in the left MCA territory and right occipital lobe is similar to prior. Ventricles: Ventricular and sulcal prominence commensurate with the patient's age. Bones/joints: Unremarkable. No acute fracture. Soft tissues: Unremarkable. Sinuses: Unremarkable as visualized. No acute sinusitis. Mastoid air cells: Unremarkable. IMPRESSION: No acute intracranial abnormality or calvarial fracture.
--- NOTE | 2018-06-28 19:05 | NUR ---
ED Nurse Note: REPORT GIVEN TO YOSEPH ADAME.
[2018-06-28] MEDS ORDERED: cefTRIAXone 1 GM in NS 55 ML IVPB ONE (19:30)
--- NOTE | 2018-06-28 19:30 | NUR ---
ED Nurse Note: patient is starting to wake up, patient is able to hold conversations with staff, patient is alert and oriented x3
[2018-06-28 19:34] VITALS: BP 125/100
--- NOTE | 2018-06-28 20:25 | NUR ---
ED Nurse Note: patient is complaining of pain in her right leg, central cath is is still patent and infusing fluids, Dr. Matos notified of pain, received orders from Dr. Matos for pain.
[2018-06-28] MEDS ORDERED: Morphine Sulfate 4mg/ml Inj (IV/IM USE ONLY) IVP ONE (20:30)
--- NOTE | 2018-06-28 20:30 | NUR ---
ED Nurse Note: Due to patient not being able to go up due to Tele not having a telebox, attempted to contact Dr. Feliz for orders, No one answered, left voice message
--- NOTE | 2018-06-28 20:55 | NUR ---
ED Nurse Note: Dr. Matos texted Dr. Saba for orders.
[2018-06-28] MEDS: Methocarbamol 750mg tab ORAL SCH (21:20)
[2018-06-28 21:25] VITALS: BP 117/66
[2018-06-28 22:20] VITALS: BP 117/69
--- NOTE | 2018-06-28 22:30 | NUR ---
With assistance from the Peter BENNETT, pt was transferred to a hospital bed, pt is now resting comfortably.
--- NOTE | 2018-06-28 22:55 | NUR ---
ED Nurse Note: PT splint noted on R arm. perfusion noted on affected extremity. cap refill less than 3 sec. pt is able to move fingers. pt is able to move affected extremity with limitation due to splint. no foul odor noted.
[2018-06-29] VITALS (7 sets, daily range): BP systolic 131–160; BP diastolic 65–80
--- NOTE | 2018-06-29 04:00 | NUR ---
ED Nurse Note: 0400 CBC and BMP labs sent down as per MD order.
[2018-06-29] MEDS ORDERED: Norco 5mg/325mg tab ORAL ONE (05:45)
--- NOTE | 2018-06-29 07:23 | History and Physical ---
History of Present Illness General Date patient seen: Jun 29, 2018 Time patient seen: 07:14 Reason for Hospitalization: Seizure Present Illness HPI 63 yo female with h/o epilepsy presents with seizure activity. patient is a very poor historian also she says she is very tired at this time, was given versed in the ED. Patient was brought in with reports of seizure activity, on lamictal at home, neighbor contacts paramedics to bring patient in. Per documentation, neighbor stated the patient possibly fell. Patient denies GI/ incontinence. Denies fevers/chills/nausea/vomiting/abd pain/diarrhea/ constipation social hx reviewed: denies smoking, alcohol or drug use code status reviewed: full code past fam hx reviewed: denies any sig past fam hx Allergies: Coded Allergies: No Known Allergies (Unverified , 09/12/12) Medication History Scheduled Hydrochlorothiazide* (Hydrochlorothiazide*), 25 MG PO DAILY, (Reported) Lamotrigine* (Lamictal*), 50 MG ORAL BIDLS Methocarbamol* (Methocarbamol*), 750 MG PO QHS, (Reported) Montelukast Sodium* (Singulair*), 10 MG PO DAILY, (Reported) Omeprazole (Omeprazole), 10 MG ORAL DAILY, (Reported) Temazepam* (Restoril*), 7.5 MG PO QHS, (Reported) Scheduled PRN Acetaminophen/Hydrocodone ([place] 7.5-325 Tablet), 1 TAB ORAL Q4H PRN for For Pain, (Reported) Zolpidem Tartrate* (Ambien*), 5 MG ORAL BEDTIME PRN for Insomnia, (Reported) Miscellaneous Medications Albuterol Sulfate (Ventolin), 5 MG PO, (Reported) Hydrocodone/Acetaminophen 7.5-500 (Hydrocodon-Acetaminoph 7.5-500), 1 EACH PO, ( Reported) Quinapril Hcl (Quinapril Hcl), 10 MG PO, (Reported) Unable to Obtain Medications (Unable To Obtain Meds), (Reported) Unable to Obtain Medications (Unable To Obtain Meds), (Reported) Patient History History Provided By: Patient, Medical Record Healthcare decision maker Resuscitation status Full Code Advanced Directive on File unk Review of Systems ROS Narrative 14 point ros reviewed and negative except per above HPI Physical Exam General Appearance: no apparent distress, alert, lethargic Lines, tubes and drains: peripheral HEENT: normocephalic, atraumatic, anicteric Neck: non-tender, normal alignment, supple, normal inspection Respiratory/Chest: chest wall non-tender, lungs clear, normal breath sounds, no respiratory distress, no accessory muscle use Cardiovascular/Chest: normal peripheral pulses, normal rate, regular rhythm Abdomen: normal bowel sounds, non tender, soft, no organomegaly, no mass Extremities: normal range of motion, non-tender, normal inspection, no calf tenderness, normal capillary refill 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: nursing 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 II-XII grossly normal, no motor/sensory deficits, alert, responsive, normal mood/affect Last 24 Hour Vital Signs Date Time Temp Pulse Resp B/P (MAP) Pulse Ox O2 Delivery O2 Flow Rate FiO2 06/29/18 06:36 98.3 62 18 131/65 100 Room Air 06/29/18 06:07 98.3 06/29/18 05:05 98.3 61 18 160/69 100 Room Air 06/29/18 03:21 98.3 60 18 159/70 100 Room Air 06/29/18 02:08 98.3 75 18 150/68 100 Room Air 06/29/18 00:30 98.3 67 18 145/71 100 Room Air 06/28/18 22:20 98.3 66 18 117/69 100 Room Air 06/28/18 21:25 98.3 66 18 117/66 (83) 100 06/28/18 20:52 98.3 06/28/18 19:34 95 25 125/100 100 Room Air 06/28/18 18:45 98.3 83 20 147/84 100 Room Air 06/28/18 17:08 98.1 120 24 220/124 98 Room Air 06/28/18 17:07 114 20 Room Air 06/28/18 17:07 114 20 140/94 99 Room Air Intake and Output 06/28/18 06/29/18 19:00 07:00 Intake Total 100 ml Output Total 800 ml Balance 100 ml -800 ml Intake IV Total 100 ml Output Urine Total 800 ml # Voids 1 # Bowel Movements 2 Laboratory Tests Test 06/28/18 17:38 06/28/18 17:55 White Blood Count 12.1 K/UL (4.8-10.8) H Red Blood Count 3.82 M/UL (4.20-5.40) L Hemoglobin 10.9 G/DL (12.0-16.0) L Hematocrit 33.8 % (37.0-47.0) L Mean Corpuscular Volume 88 FL (80-99) Mean Corpuscular Hemoglobin 28.6 PG (27.0-31.0) Mean Corpuscular Hemoglobin Concent 32.4 G/DL (32.0-36.0) Red Cell Distribution Width 12.3 % (11.6-14.8) Platelet Count 400 K/UL (150-450) Mean Platelet Volume 5.1 FL (6.5-10.1) L Neutrophils (%) (Auto) 59.0 % (45.0-75.0) Lymphocytes (%) (Auto) 29.4 % (20.0-45.0) Monocytes (%) (Auto) 8.3 % (1.0-10.0) Eosinophils (%) (Auto) 1.3 % (0.0-3.0) Basophils (%) (Auto) 2.1 % (0.0-2.0) H Sodium Level 132 MMOL/L (136-145) L Potassium Level 3.7 MMOL/L (3.5-5.1) Chloride Level 93 MMOL/L (98-107) L Carbon Dioxide Level 25 MMOL/L (21-32) Anion Gap 14 mmol/L (5-15) Blood Urea Nitrogen 11 mg/dL (7-18) Creatinine 1.7 MG/DL (0.55-1.30) H Estimat Glomerular Filtration Rate 36.8 mL/min (>60) Glucose Level 94 MG/DL (74-106) Calcium Level 11.2 MG/DL (8.5-10.1) H Total Bilirubin 0.3 MG/DL (0.2-1.0) Aspartate Amino Transf (AST/SGOT) 13 U/L (15-37) L Alanine Aminotransferase (ALT/SGPT) 17 U/L (12-78) Alkaline Phosphatase 121 U/L (46-116) H Total Creatine Kinase 99 U/L (26-308) Creatine Kinase MB 0.9 NG/ML (0.0-3.6) Creatine Kinase MB Relative Index 0.9 Troponin I 0.000 ng/mL (0.000-0.056) Total Protein 7.9 G/DL (6.4-8.2) Albumin 4.1 G/DL (3.4-5.0) Globulin 3.8 g/dL Albumin/Globulin Ratio 1.1 (1.0-2.7) Triglycerides Level 61 MG/DL (30-150) Cholesterol Level 144 MG/DL (< 200) LDL Cholesterol 52 mg/dL (<100) HDL Cholesterol 85 MG/DL (40-60) H Cholesterol/HDL Ratio 1.7 (3.3-4.4) L Urine Color Yellow Urine Appearance Slightly cloudy Urine pH 5 (4.5-8.0) Urine Specific [place] 1.020 (1.005-1.035) Urine Protein 4+ (NEGATIVE) H Urine Glucose (UA) Negative (NEGATIVE) Urine Ketones Negative (NEGATIVE) Urine Blood 3+ (NEGATIVE) H Urine Nitrite Negative (NEGATIVE) Urine Bilirubin Negative (NEGATIVE) Urine Urobilinogen Normal MG/DL (0.0-1.0) Urine Leukocyte Esterase 2+ (NEGATIVE) H Urine RBC 2-4 /HPF (0 - 2) H Urine WBC 5-10 /HPF (0 - 2) H Urine Squamous Epithelial Cells Few /LPF (NONE/OCC) Urine Amorphous Sediment Few /LPF (NONE) H Urine Bacteria Moderate /HPF (NONE) H Urine Opiates Screen Positive (NEGATIVE) H Urine Barbiturates Screen Negative (NEGATIVE) Phencyclidine (PCP) Screen Negative (NEGATIVE) Urine Amphetamines Screen Negative (NEGATIVE) Urine Benzodiazepines Screen Positive (NEGATIVE) H Urine Cocaine Screen Positive (NEGATIVE) H Urine Marijuana (THC) Screen Negative (NEGATIVE) Height (Feet): 5 Height (Inches): 6.00 Weight (Pounds): 140 Medications Current Medications Medications (Trade) Dose Ordered Sig/Martha Route PRN Reason Start Time Stop Time Status Last Admin Dose Admin Hydrochlorothiazide (Hydrodiuril) 25 mg DAILY ORAL 06/29/18 09:00 07/29/18 08:59 Lamotrigine (LaMICtal) 50 mg BIDLS ORAL 06/29/18 11:30 07/29/18 11:29 Methocarbamol (Robaxin) 750 mg QHS ORAL 06/28/18 21:00 07/28/18 20:59 06/28/18 21:20 Montelukast Sodium (Singulair) 10 mg QPM ORAL 06/29/18 16:30 07/29/18 16:29 Morphine Sulfate (Morphine Sulfate) 2 mg Q6H PRN IVP For Pain 06/28/18 21:15 07/05/18 21:14 Ondansetron HCl (Zofran) 4 mg Q6H PRN IVP nausea 06/28/18 21:15 07/28/18 21:14 Sodium Chloride 1,000 ml @ 100 mls/hr Q10H IV 06/28/18 21:30 07/28/18 21:29 06/28/18 22:22 Assessment/Plan Status: stable Assessment/Plan #Seizure #GLF #Lethargy - resume home meds, lamictal - keppra given in ED - will need to continue to figure if patient is compliant or not with medication and if she has been on any other meds - uds #Hyponatremia- - Na 132, IVF, monitor #JODIE - Cr 1.7- - IVF #Cocaine abuse - UDS +Cocaine although pt denied drug use to me during discussion diet: regular DVT Prophylaxis: SCD, HSQ Code Status: Full Hospital Classification Declaration: Based on this initial evaluation, and depending on the patient's clinical course, I anticipate that this patient will require hospitalization for 2-3 days for seizures, cocaine abuse, jodie and close respiratory/hemodynamic monitoring. Disposition: Once the patient is stable to leave the hospital, I anticipate the patient will likely be discharged to the following environment: home with HH vs SNF I spent 65 minutes on this patient's case, and 48 minutes were dedicated to counseling and/or care coordination. Discussed with patient/family, nursing staff, SW/CM regarding clinical status, treatment course, and disposition planning. Time of note may not reflect time of encounter. ------ Date of Discussion: 06/29/18 A [id number] discussion with the patient regarding the patient's advanced care planning took place during this hospitalization on the above date. The discussion included the explanation and discussion of advance directives and associated forms/documents, as well as the patient's current code status. We also discussed at length the patient's medical conditions (both acute and chronic), general prognosis, treatment options, and goals of care. The following summarizes the discussion: Advance Care Planning/Goals of Care: - Will attempt to fill out an AD and/or POLST with the patient prior to discharge, if not already completed - Continue current evaluation and management of any acute and chronic medical issues - Will continue to support the patient/family - Will continue to discuss both short- and long-term goals of care DPOA-HC/Surrogate Decision Maker: None currently appointed Code Status: Full Code AD Forms/Documents Completed: Deferred A total of 31 minutes was spent on this discussion, including counseling, answering questions, and completing, if any, pertinent advanced care planning forms/documents. Ean Saba MD Jun 29, 2018 07:23
--- NOTE | 2018-06-29 08:00 | NUR ---
CALLED TO GIVE REPORT NURSES ARE NOT READY FOR REPORT
--- NOTE | 2018-06-29 08:13 | NUR ---
ED Nurse Note: called for report, the rn said she is busy giving medication, she cannot take any patient, CN made aware.
--- NOTE | 2018-06-29 08:41 | Diagnostic Imaging Report ---
Indication: Chest pain Comparison: 10/11/2017 A single view chest radiograph was obtained. Findings: No definite infiltrate or pulmonary vascular congestion identified. The heart is borderline enlarged. The aorta is mildly enlarged consistent with atherosclerotic vascular disease. The bones are osteopenic. Impression: No acute disease
--- NOTE | 2018-06-29 08:54 | NUR ---
CALLED TO GIVE REPORT PER NURSE SHE IS NOT READY TO TAKE REPORT DUE TO SHE HAS TO GIVE MEDS TO [facility] PATIENT WILL CALL BACK WHEN SHE IS READY.THIS BED HAS MISTY ASSIGNED AT 0630 FOR PATIENT TO GO TO ROOM AT 0730
--- NOTE | 2018-06-29 09:20 | NUR ---
ED Nurse Note: patient transferred to [facility], all the report/care given to [facility]. patient is stable in bed, all the belongings transferred, endorsed to [facility].
[2018-06-29 09:26] LABS: BASOPHILS % (AUTO) 0.8 % (0.0-2.0); EOSINOPHILS % (AUTO) 1.8 % (0.0-3.0); HEMATOCRIT 29.7 % (37.0-47.0); HEMOGLOBIN 9.3 G/DL (12.0-16.0); LYMPHOCYTES % (AUTO) 24.8 % (20.0-45.0); MEAN CORPUSCULAR VOLUME 89 FL (80-99); MONOCYTES % (AUTO) 7.6 % (1.0-10.0); PLATELET COUNT 407 K/UL (150-450); RED BLOOD COUNT 3.34 M/UL (4.20-5.40); WHITE BLOOD COUNT 14.7 K/UL (4.8-10.8)
[2018-06-29 09:30] LABS: ANION GAP 10 mmol/L (5-15); BLOOD UREA NITROGEN 8 mg/dL (7-18); CALCIUM 9.5 MG/DL (8.5-10.1); CARBON DIOXIDE 24 MMOL/L (21-32); CHLORIDE 105 MMOL/L (98-107); CREATININE 1.2 MG/DL (0.55-1.30); POTASSIUM 3.8 MMOL/L (3.5-5.1); SODIUM 139 MMOL/L (136-145)
--- NOTE | 2018-06-29 09:30 | NUR ---
NURSE NOTES: Received patient and report from minda Winkler in ER, pt is a & o x3. monitoring manager in place, pt has right femoral triple lumen intact and patent, dressing changed in ER before transferring patient to TELE floor. Patient has fole catheter in place inserted in ER on 06/28/18 and draining to gravity. Patient denies any pain at this time, no s/s of seizure activity. No s/s of respiratory distress or discomfort. All admission orders were imputed by Dr Saba. Patient was oriented to room, bed is in lowest position, brakes engaged for safety, call light is within reach. Will continue with the plan of care.
[2018-06-29] MEDS: Morphine Sulfate 2mg/ml Inj IVP PRN ×2 (11:31→18:37)
--- NOTE | 2018-06-29 13:28 | NUR ---
NURSE NOTES:WOUND CARE NOTES:Pt presents with non-blanchable erythema sacrum.Pt denied pain when sacrum minimally palpated.Periwound without induration. Resolving surgical incision mid-abdomen,dry scabs without erythema noted.Both heels dry ,easily blanchable and non-tender when palpated. Pt educated on wound prevention .Encourage to avoid sliding against bed-linens by Off-lifting buttocks while repositioning.Encouraged frequent repositioning. Tx.Plan:Apply [place] Skin Barrier to Sacrum.Cover with Optifoam .Change every 7 days and prn. Encourage and assist with repositioning at least every 2hours or as tolerated. Off-load heels with pillow.
--- NOTE | 2018-06-29 15:56 | Cardiology Report ---
APPROVED REPORT EKG Measurement Heart [id number] Sinus tachycardia Otherwise normal ECG
[2018-06-29] MEDS: Montelukast 10mg tablet ORAL SCH (17:09)
--- NOTE | 2018-06-29 19:39 | NUR ---
HAND-OFF: Report given to YOSEPH Baltazar. Patient is in stable condition.
--- NOTE | 2018-06-29 19:45 | NUR ---
NURSE NOTES: Received report from YOSEPH Kaiser. Patient is awake lying semi-tai's; resting comfortably. No signs of acute distress noted; complains of pain. AOx3-4; able to make needs known. Checked right femoral triple lumen catheter IV site, lines, and IV rate; patent and running. No erythema, bleeding, or infiltration noted. Duarte catheter draining well to gravity. Bed at lowest position, brakes on, siderails up x3. Siderails padded following seizure precautions. Call light within reach. Will continue to monitor.
[2018-06-29] MEDS: Methocarbamol 750mg tab ORAL SCH (22:43)
--- NOTE | 2018-06-29 22:53 | NUR ---
NURSE NOTES: Patient noted to be having a seizure, but has no PRN Ativan. Called Dr. Saba for a possible Ativan order. Awaiting callback.
--- NOTE | 2018-06-29 23:37 | NUR ---
NURSE NOTES: Called Dr. Feliz's exchange regarding patient complaining of pain on her right side and noted to be having spasms. Awaiting callback.
[2018-06-29] MEDS ORDERED: LORazepam 1mg tab ORAL PRN (23:45)
--- NOTE | 2018-06-29 23:45 | NUR ---
NURSE NOTES: Received new order from Dr. Bonner for Ativan 1 mg PO q6hr PRN for seizure/anxiety. Noted and carried out.
[2018-06-30] VITALS: BP 139/69
--- NOTE | 2018-06-30 00:17 | NUR ---
NURSE NOTES: Called Dr. Bonner regarding patient not being able to take Ativan PO due to muscle tremors. Received order for Ativan 1 mg IV q6hr PRN for seizure/anxiety. Noted and carried out.
[2018-06-30] MEDS: LORazepam Inj 2mg/ml 1ml IV PRN ×2 (00:47→20:23)
[2018-06-30 04:00] VITALS: BP 141/94
--- NOTE | 2018-06-30 04:19 | NUR ---
HAND-OFF: Report given to YOSEPH Adhikari. Patient is asleep lying semi-tai's; resting comfortably. In stable condition.
--- NOTE | 2018-06-30 04:20 | NUR ---
NURSE NOTES: Received report from YOSEPH Baltazar. patient asleep, breathing even and unlabored, no s/sx of pain nor any discomfort at this time. IV site on R femoral connected to NS at 100 cc/hr. Bed at lowest position, call light within reach. Will continue plan of care.
[2018-06-30] MEDS: Morphine Sulfate 2mg/ml Inj IVP PRN ×3 (06:36→18:37)
[2018-06-30 06:55] LABS: EOSINOPHILS % (AUTO) 0.5 % (0.0-3.0); HEMATOCRIT 27.8 % (37.0-47.0); HEMOGLOBIN 8.9 G/DL (12.0-16.0); LYMPHOCYTES % (AUTO) 11.7 % (20.0-45.0); MEAN CORPUSCULAR VOLUME 88 FL (80-99); MONOCYTES % (AUTO) 5.8 % (1.0-10.0); PLATELET COUNT 365 K/UL (150-450); RED BLOOD COUNT 3.15 M/UL (4.20-5.40); RED CELL DISTRIBUTION WIDTH 12.4 % (11.6-14.8); WHITE BLOOD COUNT 15.1 K/UL (4.8-10.8)
[2018-06-30 07:01] LABS: ANION GAP 10 mmol/L (5-15); BLOOD UREA NITROGEN 12 mg/dL (7-18); CALCIUM 9.9 MG/DL (8.5-10.1); CARBON DIOXIDE 22 MMOL/L (21-32); CHLORIDE 105 MMOL/L (98-107); CREATININE 1.2 MG/DL (0.55-1.30); POTASSIUM 3.9 MMOL/L (3.5-5.1); SODIUM 137 MMOL/L (136-145)
--- NOTE | 2018-06-30 07:08 | NUR ---
HAND-OFF: Report given to YOSEPH Cruz. Endorsed plan of care.
--- NOTE | 2018-06-30 07:10 | NUR ---
NURSE NOTES: I received the patient awake and resting in bed. Patient alert and oriented x3. Patient does not display any signs of distress. Seizure precautions in place. Bed in the lowest position and call light within reach. I will continue to monitor the patient and implement care.
[2018-06-30] MEDS ORDERED: LAMICTAL25 MG ORAL (07:41)
--- NOTE | 2018-06-30 07:47 | Discharge Summary ---
Discharge Summary Hospital Course Date of Admission Jun 28, 2018 at 17:47 Date of Discharge 06/30/18 Admitting Diagnosis multiple seizure activity HPI Lexi Campbell is a 63 year old female who was admitted on Jun 28, 2018 at 17: 47 for Multiple Seizure Activity patient noncompliant with home medications. states she has some at home, however states she needs refills. very poor historian. Patient today admits to cocain use and smoking around half ppd, denies alcohol use patient did not have seizures since admit and since resumption of home medications. vitals stable, labs stable. discussed with patient about discharge disposition, patient agrees with plan and states she has a pcp that she can follow up with and that she will see them in a week dc home Physical Exam General Appearance: no apparent distress, alert, lethargic Lines, tubes and drains: peripheral HEENT: normocephalic, atraumatic, anicteric Neck: non-tender, normal alignment, supple, normal inspection Respiratory/Chest: chest wall non-tender, lungs clear, normal breath sounds, no respiratory distress, no accessory muscle use Cardiovascular/Chest: normal peripheral pulses, normal rate, regular rhythm Abdomen: normal bowel sounds, non tender, soft, no organomegaly, no mass Extremities: normal range of motion, non-tender, normal inspection, no calf tenderness, normal capillary refill Neurologic: ward service supervisor II-XII grossly normal, no motor/sensory deficits, alert, responsive, normal mood/affect Hospital Course #Seizure #GLF #Lethargy #medication noncompliance - resume home meds, lamictal - admits to noncompliance, says she needs refills #Hyponatremia- - Na 132, IVF on admit - resolved #JODIE - Cr 1.7 on admit - resolved - IVF #Cocaine abuse - UDS +Cocaine - today patient admitted to cocaine use #Smoker - smokes around half ppd - i educated patient on smoking cessation for over 15 mins today, patient states she understands and will try to quit diet: regular DVT Prophylaxis: SCD, HSQ Code Status: Full Hospital Classification Declaration: Based on this initial evaluation, and depending on the patient's clinical course, I anticipate that this patient will require hospitalization for 2-3 days for seizures, cocaine abuse, jodie and close respiratory/hemodynamic monitoring. Disposition: Once the patient is stable to leave the hospital, I anticipate the patient will likely be discharged to the following environment: home I spent 40 minutes on this patient's case, discharge/dispo planning and/or care coordination. Discussed with patient/family, nursing staff, MADIE/INDIA regarding clinical status, treatment course, and disposition planning. Time of note may not reflect time of encounter. ------ Date of Discussion: 06/29/18 A [id number] discussion with the patient regarding the patient's advanced care planning took place during this hospitalization on the above date. The discussion included the explanation and discussion of advance directives and associated forms/documents, as well as the patient's current code status. We also discussed at length the patient's medical conditions (both acute and chronic), general prognosis, treatment options, and goals of care. The following summarizes the discussion: Advance Care Planning/Goals of Care: - Will attempt to fill out an AD and/or POLST with the patient prior to discharge, if not already completed - Continue current evaluation and management of any acute and chronic medical issues - Will continue to support the patient/family - Will continue to discuss both short- and long-term goals of care DPOA-HC/Surrogate Decision Maker: None currently appointed Code Status: Full Code AD Forms/Documents Completed: Deferred A total of 31 minutes was spent on this discussion, including counseling, answering questions, and completing, if any, pertinent advanced care planning forms/documents. Discharge Medications Continued Medications: Albuterol Sulfate (Ventolin) 5 Mg/1 Ml Solution 5 MG PO (This prescription has been renewed) Hydrochlorothiazide* (Hydrochlorothiazide*) 25 Mg Tablet 25 MG PO DAILY, #30 TAB (This prescription has been renewed) Lamotrigine* (Lamictal*) 25 Mg Tab 50 MG ORAL BIDLS for 30 Days, #60 TAB (This prescription has been renewed) Methocarbamol* (Methocarbamol*) 750 Mg Tablet 750 MG PO QHS, #20 TAB (This prescription has been renewed) Montelukast Sodium* (Singulair*) 10 Mg Tablet 10 MG PO DAILY, TAB (This prescription has been renewed) Take one tablet by mouth daily Omeprazole (Omeprazole) 10 Mg Capsule.dr 10 MG ORAL DAILY, #30 CAP 0 Refills (This prescription has been renewed) Quinapril Hcl (Quinapril Hcl) 10 Mg Tablet 10 MG PO (This prescription has been renewed) Discontinued Medications: Acetaminophen/Hydrocodone ([place] 7.5-325 Tablet) 1 Ea Tab 1 TAB ORAL Q4H PRN for For Pain, #60 TAB 0 Refills Hydrocodone/Acetaminophen 7.5-500 (Hydrocodon-Acetaminoph 7.5-500) 1 Each Tablet 1 EACH PO Temazepam* (Restoril*) 7.5 Mg Capsule 7.5 MG PO QHS, #10 CAP Take 1 capsule by mouth aat bedtime. Unable to Obtain Medications (Unable To Obtain Meds) 1 Ea Ea Unable to Obtain Medications (Unable To Obtain Meds) 1 Ea Ea Zolpidem Tartrate* (Ambien*) 5 Mg Tablet 5 MG ORAL BEDTIME PRN for Insomnia, TAB Discharge Condition Upon Discharge: stable Discharge Disposition Patient was discharged to home Discharge Diagnoses: (1) Epileptic seizure, generalized (2) Leukocytosis (3) Cocaine abuse Ean Saba MD Jun 30, 2018 07:47
[2018-06-30 08:00] VITALS: BP 143/98
[2018-06-30 11:41] VITALS: BP 150/101
--- NOTE | 2018-06-30 13:04 | Consultation ---
History of Present Illness General Date patient seen: Jun 30, 2018 Chief Complaint: Seizure Present Illness Allergies: Coded Allergies: No Known Allergies (Unverified , 09/12/12) Medication History Scheduled Hydrochlorothiazide* (Hydrochlorothiazide*), 25 MG PO DAILY, (Reported) Lamotrigine* (Lamictal*), 50 MG ORAL BIDLS Methocarbamol* (Methocarbamol*), 750 MG PO QHS, (Reported) Montelukast Sodium* (Singulair*), 10 MG PO DAILY, (Reported) Omeprazole (Omeprazole), 10 MG ORAL DAILY, (Reported) Miscellaneous Medications Albuterol Sulfate (Ventolin), 5 MG PO, (Reported) Quinapril Hcl (Quinapril Hcl), 10 MG PO, (Reported) Discontinued Medications Acetaminophen/Hydrocodone ([place] 7.5-325 Tablet), 1 TAB ORAL Q4H PRN for For Pain, (Reported) Discontinued Reason: MD discontinued med Hydrocodone/Acetaminophen 7.5-500 (Hydrocodon-Acetaminoph 7.5-500), 1 EACH PO, ( Reported) Discontinued Reason: MD discontinued med Temazepam* (Restoril*), 7.5 MG PO QHS, (Reported) Discontinued Reason: MD discontinued med Unable to Obtain Medications (Unable To Obtain Meds), (Reported) Discontinued Reason: MD discontinued med Unable to Obtain Medications (Unable To Obtain Meds), (Reported) Discontinued Reason: MD discontinued med Zolpidem Tartrate* (Ambien*), 5 MG ORAL BEDTIME PRN for Insomnia, (Reported) Discontinued Reason: MD discontinued med Patient History Healthcare decision maker Resuscitation status Full Code Advanced Directive on File unk Physical Exam Last 24 Hour Vital Signs Date Time Temp Pulse Resp B/P (MAP) Pulse Ox O2 Delivery O2 Flow Rate FiO2 06/30/18 11:48 91 06/30/18 11:41 98.5 84 150/101 (117) 06/30/18 09:00 Room Air 06/30/18 08:00 98.7 92 143/98 (113) 06/30/18 07:40 85 06/30/18 04:29 91 06/30/18 04:00 98.6 91 20 141/94 (110) 96 06/30/18 00:00 62 06/30/18 00:00 97.8 67 20 139/69 (92) 95 06/29/18 21:00 Room Air 06/29/18 20:00 98.6 63 20 138/78 (98) 94 06/29/18 20:00 59 06/29/18 16:00 69 06/29/18 16:00 98.5 75 18 140/80 (100) 95 Intake and Output 06/29/18 06/30/18 19:00 07:00 Intake Total 38 ml 1673 ml Output Total 2500 ml Balance 38 ml -827 ml Intake Oral 480 ml IV Total 38 ml 1193 ml Output Urine Total 2500 ml # Bowel Movements 2 Laboratory Tests Test 06/30/18 05:00 White Blood Count 15.1 K/UL (4.8-10.8) H Red Blood Count 3.15 M/UL (4.20-5.40) L Hemoglobin 8.9 G/DL (12.0-16.0) L Hematocrit 27.8 % (37.0-47.0) L Mean Corpuscular Volume 88 FL (80-99) Mean Corpuscular Hemoglobin 28.3 PG (27.0-31.0) Mean Corpuscular Hemoglobin Concent 32.0 G/DL (32.0-36.0) Red Cell Distribution Width 12.4 % (11.6-14.8) Platelet Count 365 K/UL (150-450) Mean Platelet Volume 5.0 FL (6.5-10.1) L Neutrophils (%) (Auto) 81.0 % (45.0-75.0) H Lymphocytes (%) (Auto) 11.7 % (20.0-45.0) L Monocytes (%) (Auto) 5.8 % (1.0-10.0) Eosinophils (%) (Auto) 0.5 % (0.0-3.0) Basophils (%) (Auto) 1.0 % (0.0-2.0) Sodium Level 137 MMOL/L (136-145) Potassium Level 3.9 MMOL/L (3.5-5.1) Chloride Level 105 MMOL/L (98-107) Carbon Dioxide Level 22 MMOL/L (21-32) Anion Gap 10 mmol/L (5-15) Blood Urea Nitrogen 12 mg/dL (7-18) Creatinine 1.2 MG/DL (0.55-1.30) Estimat Glomerular Filtration Rate 55.1 mL/min (>60) Glucose Level 89 MG/DL (74-106) Calcium Level 9.9 MG/DL (8.5-10.1) Height (Feet): 5 Height (Inches): 6.00 Weight (Pounds): 140 Medications Current Medications Medications (Trade) Dose Ordered Sig/Martha Route PRN Reason Start Time Stop Time Status Last Admin Dose Admin Hydrochlorothiazide (Hydrodiuril) 25 mg DAILY ORAL 06/29/18 09:00 07/29/18 08:59 06/29/18 13:00 Lamotrigine (LaMICtal) 50 mg BIDLS ORAL 06/29/18 11:30 07/29/18 11:29 06/30/18 11:16 Lorazepam (Ativan 2mg/ml 1ml) 1 mg Q6HR PRN IV For Anxiety 06/30/18 00:30 07/07/18 00:29 06/30/18 00:47 Methocarbamol (Robaxin) 750 mg QHS ORAL 06/28/18 21:00 07/28/18 20:59 06/29/18 22:43 Montelukast Sodium (Singulair) 10 mg QPM ORAL 06/29/18 16:30 07/29/18 16:29 06/29/18 17:09 Morphine Sulfate (Morphine Sulfate) 2 mg Q6H PRN IVP For Pain 06/28/18 21:15 07/05/18 21:14 06/30/18 12:37 Ondansetron HCl (Zofran) 4 mg Q6H PRN IVP nausea 06/28/18 21:15 07/28/18 21:14 Sodium Chloride 1,000 ml @ 100 mls/hr Q10H IV 06/28/18 21:30 07/28/18 21:29 06/30/18 12:37 Assessment/Plan Assessment/Plan Hematology Consultation REJanice MITCHELL: Kailash DOS: 06/30/17 RFC: Anemia eval ID 63 yo female with h/o epilepsy presents with seizure activity. patient is a very poor historian also she says she is very tired at this time, was given versed in the ED. Patient was brought in with reports of seizure activity, on lamictal at home, neighbor contacts paramedics to bring patient in. Per documentation, neighbor stated the patient possibly fell. Patient denies GI/ incontinence. Denies fevers/chills/nausea/vomiting/abd pain/diarrhea/ constipation Noted to have anemia and heme was consulted. social hx reviewed: denies smoking, alcohol or drug use code status reviewed: full code past fam hx reviewed: denies any sig past fam hx Allergies: Coded Allergies: No Known Allergies (Unverified , 09/12/12) Medication History Scheduled Hydrochlorothiazide* (Hydrochlorothiazide*), 25 MG PO DAILY, (Reported) Lamotrigine* (Lamictal*), 50 MG ORAL BIDLS Methocarbamol* (Methocarbamol*), 750 MG PO QHS, (Reported) Montelukast Sodium* (Singulair*), 10 MG PO DAILY, (Reported) Omeprazole (Omeprazole), 10 MG ORAL DAILY, (Reported) Temazepam* (Restoril*), 7.5 MG PO QHS, (Reported) Scheduled PRN Acetaminophen/Hydrocodone ([place] 7.5-325 Tablet), 1 TAB ORAL Q4H PRN for For Pain, (Reported) Zolpidem Tartrate* (Ambien*), 5 MG ORAL BEDTIME PRN for Insomnia, (Reported) Miscellaneous Medications Albuterol Sulfate (Ventolin), 5 MG PO, (Reported) Hydrocodone/Acetaminophen 7.5-500 (Hydrocodon-Acetaminoph 7.5-500), 1 EACH PO, ( Reported) Quinapril Hcl (Quinapril Hcl), 10 MG PO, (Reported) Unable to Obtain Medications (Unable To Obtain Meds), (Reported) Unable to Obtain Medications (Unable To Obtain Meds), (Reported) History Provided By: Patient, Medical Record Healthcare decision maker Resuscitation status Full Code Advanced Directive on File unk Review of Systems ROS Narrative 14 point ros reviewed and negative except per above HPI Physical Exam General Appearance: no apparent distress, alert, lethargic Lines, tubes and drains: peripheral HEENT: normocephalic, atraumatic, anicteric Neck: non-tender, normal alignment, supple, normal inspection Respiratory/Chest: chest wall non-tender, lungs clear Cardiovascular/Chest: normal peripheral pulses Abdomen: normal bowel sounds, non tender Extremities: normal range of motion, non-tender, normal inspection Neurologic: backpackers manager II-XII grossly normal, no motor/sensory deficits, alert, responsive, normal mood/affect Current Medications Medications (Trade) Dose Ordered Sig/Martha Route PRN Reason Start Time Stop Time Status Last Admin Dose Admin Hydrochlorothiazide (Hydrodiuril) 25 mg DAILY ORAL 06/29/18 09:00 07/29/18 08:59 Lamotrigine (LaMICtal) 50 mg BIDLS ORAL 06/29/18 11:30 07/29/18 11:29 Methocarbamol (Robaxin) 750 mg QHS ORAL 06/28/18 21:00 07/28/18 20:59 06/28/18 21:20 Montelukast Sodium (Singulair) 10 mg QPM ORAL 06/29/18 16:30 07/29/18 16:29 Morphine Sulfate (Morphine Sulfate) 2 mg Q6H PRN IVP For Pain 06/28/18 21:15 07/05/18 21:14 Ondansetron HCl (Zofran) 4 mg Q6H PRN IVP nausea 06/28/18 21:15 07/28/18 21:14 Sodium Chloride 1,000 ml @ 100 mls/hr Q10H IV 06/28/18 21:30 07/28/18 21:29 06/28/18 22:22 Assessment/Plan # Anemia of chronic disease -- consider w/u if patient still admitted tomorrow though appears potential dc --> anemia panel to be ordered if still here tomorrow: fereritin, tibc, esr, crp , tsh --> transfuse if hgb <7 # Seizure disorder given keprra in the er --> currently seizure as subsided and to get seen by neuro # GLF multiple etiologies possible --> consider neuro eval as needed # Lethargy --> resume home meds, lamictal --> will need to continue to figure if patient is compliant or not with medication and if she has been on any other meds --> recommended drug cessation, illicit substances # Hyponatremia- - Na 132, IVF, monitor # JODIE--> Cr 1.7- # Cocaine abuse --> UDS +Cocaine although pt denied drug use to me during discussion Greatly appreciate consultation! Nick Marley MD Jun 30, 2018 13:04
--- NOTE | 2018-06-30 14:09 | General Progress Note ---
Assessment/Plan Status: stable Assessment/Plan #Seizure #GLF #Lethargy #medication noncompliance #weakness - resume home meds, lamictal - admits to noncompliance, says she needs refills - stable, no seizures overnight - PT #Hyponatremia- - Na 132, IVF on admit - resolved #JODIE - Cr 1.7 on admit - resolved - IVF #Cocaine abuse - UDS +Cocaine - today patient admitted to cocaine use #Smoker - smokes around half ppd - i educated patient on smoking cessation for over 15 mins today, patient states she understands and will try to quit diet: regular DVT Prophylaxis: SCD, HSQ Code Status: Full Hospital Classification Declaration: Based on this initial evaluation, and depending on the patient's clinical course, I anticipate that this patient will require hospitalization for 2-3 days for seizures, cocaine abuse, jodie and close respiratory/hemodynamic monitoring. i have reviewed all imaging, labs and medications Disposition: Once the patient is stable to leave the hospital, I anticipate the patient will likely be discharged to the following environment: home I spent 43 minutes on this patient's case, and over 30 mins of face to face time , counseling and/or care coordination. Discussed with patient/family, nursing staff, SW/CM regarding clinical status, treatment course, and disposition planning. Time of note may not reflect time of encounter. ------ Date of Discussion: 06/29/18 A [id number] discussion with the patient regarding the patient's advanced care planning took place during this hospitalization on the above date. The discussion included the explanation and discussion of advance directives and associated forms/documents, as well as the patient's current code status. We also discussed at length the patient's medical conditions (both acute and chronic), general prognosis, treatment options, and goals of care. The following summarizes the discussion: Advance Care Planning/Goals of Care: - Will attempt to fill out an AD and/or POLST with the patient prior to discharge, if not already completed - Continue current evaluation and management of any acute and chronic medical issues - Will continue to support the patient/family - Will continue to discuss both short- and long-term goals of care DPOA-HC/Surrogate Decision Maker: None currently appointed Code Status: Full Code AD Forms/Documents Completed: Deferred A total of 31 minutes was spent on this discussion, including counseling, answering questions, and completing, if any, pertinent advanced care planning forms/documents. Subjective Date patient seen: Jun 30, 2018 Time patient seen: 14:06 Allergies: Coded Allergies: No Known Allergies (Unverified , 09/12/12) Subjective f/u seizures, weakness patient to stay another night due to weakness, patient doesnt feel safe at home on her own PT eval no acute events overnight no seizures overnight Objective Last 24 Hour Vital Signs Date Time Temp Pulse Resp B/P (MAP) Pulse Ox O2 Delivery O2 Flow Rate FiO2 06/30/18 13:07 98.5 06/30/18 11:48 91 06/30/18 11:41 98.5 84 150/101 (117) 06/30/18 09:00 Room Air 06/30/18 08:00 98.7 92 143/98 (113) 06/30/18 07:40 85 06/30/18 04:29 91 06/30/18 04:00 98.6 91 20 141/94 (110) 96 06/30/18 00:00 62 06/30/18 00:00 97.8 67 20 139/69 (92) 95 06/29/18 21:00 Room Air 06/29/18 20:00 98.6 63 20 138/78 (98) 94 06/29/18 20:00 59 06/29/18 16:00 69 06/29/18 16:00 98.5 75 18 140/80 (100) 95 Intake and Output 06/29/18 06/30/18 19:00 07:00 Intake Total 38 ml 1673 ml Output Total 2500 ml Balance 38 ml -827 ml Intake Oral 480 ml IV Total 38 ml 1193 ml Output Urine Total 2500 ml # Bowel Movements 2 Laboratory Tests 06/30/18 05:00: White Blood Count 15.1H, Red Blood Count 3.15L, Hemoglobin 8.9L, Hematocrit 27.8L, Mean Corpuscular Volume 88, Mean Corpuscular Hemoglobin 28.3, Mean Corpuscular Hemoglobin Concent 32.0, Red Cell Distribution Width 12.4, Platelet Count 365, Mean Platelet Volume 5.0L, Neutrophils (%) (Auto) 81.0H, Lymphocytes (%) (Auto) 11.7L, Monocytes (%) (Auto) 5.8, Eosinophils (%) (Auto) 0.5, Basophils (%) (Auto) 1.0, Sodium Level 137, Potassium Level 3.9, Chloride Level 105, Carbon Dioxide Level 22, Anion Gap 10, Blood Urea Nitrogen 12, Creatinine 1.2, Estimat Glomerular Filtration Rate 55.1, Glucose Level 89, Calcium Level 9.9 Height (Feet): 5 Height (Inches): 6.00 Weight (Pounds): 140 Objective General Appearance: no apparent distress, alert, lethargic Lines, tubes and drains: peripheral HEENT: normocephalic, atraumatic, anicteric Neck: non-tender, normal alignment, supple, normal inspection Respiratory/Chest: chest wall non-tender, lungs clear, normal breath sounds, no respiratory distress, no accessory muscle use Cardiovascular/Chest: normal peripheral pulses, normal rate, regular rhythm Abdomen: normal bowel sounds, non tender, soft, no organomegaly, no mass Extremities: normal range of motion, non-tender, normal inspection, no calf tenderness, normal capillary refill Neurologic: receiving associate II-XII grossly normal, no motor/sensory deficits, alert, responsive, normal mood/affect Ean Saba MD Jun 30, 2018 14:09
--- NOTE | 2018-06-30 14:40 | NUR ---
CASE MANAGEMENT:REVIEW BIBA FROM HOME CC: SEIZURE. FELL DOWN STAIRS PER NEIGHBOR SI: SEIZURE. ACUTE ENCEPHALOPATHY. DEHYDRATION 120 24 220/124 98% ON RA WBC+12.1 IS: 1L NS BOLUS X2 IV KEPPRA IV ATIVAN CXR CT HEAD : TO TELEMETRY INTERQUAL CRITERIA MET
--- NOTE | 2018-06-30 15:01 | NUR ---
DISCHARGE PLANNING PATIENT HAS BEEN REFERRED TO [facility] T: [phone] F: [phone] AWAITING BED ASSIGNMENT
--- NOTE | 2018-06-30 15:26 | NUR ---
REHAB MED PT NOTE CONSULT RECEIVED, SUZANNE COMPLTED, PATIENT WILL BENEFIT FROM SKILLED PT DURING STAY FOR RETURN TO [facility]. RECOMMEND SN[facility] AT [place]. PATIENT LIMITED BY WEAKNESS. PLAN OF CARE INITIATED. MARK THIBODEAUX PT DPT Addendum: 06/30/18 at 1527 by MARK THIBODEAUX PT Amended: Links added.
[2018-06-30 15:53] VITALS: BP 139/90
--- NOTE | 2018-06-30 16:01 | NUR ---
DISCHARGE PLAN PATIENT HAS BEEN ACCEPTED AT [facility] POLYMERIZATION ENGINEER WILL ARRANGE TRANSFER IN AM MESSAGE LEFT FOR DR VEGA
[2018-06-30] MEDS: Montelukast 10mg tablet ORAL SCH (16:19)
--- NOTE | 2018-06-30 19:11 | NUR ---
HAND-OFF: Report given to YOSEPH Scott.
--- NOTE | 2018-06-30 19:15 | NUR ---
NURSE NOTES: Report received from YOSEPH Cruz. Pt is lying comfortably in semi-fowlers. A+Ox4, denies pain and SOB. Pt shows no signs of distress. Central line intact and running fluids at prescribed rate. Respirations are even and unlabored on room air. Duarte is in place, patent, and draining to gravity at foot of bed. Bed is at lowest position, brakes engaged, siderails x2, bed alarm on, and call light within reach. Pt is in stable condition at this time, admission orders in; will continue to monitor.
[2018-06-30 20:00] VITALS: BP 141/92
[2018-06-30] MEDS: Methocarbamol 750mg tab ORAL SCH (20:23)
[2018-07-01] VITALS: BP 145/95
[2018-07-01] MEDS: Morphine Sulfate 2mg/ml Inj IVP PRN ×2 (00:39→06:42)
[2018-07-01 04:00] VITALS: BP 143/89
--- NOTE | 2018-07-01 07:16 | NUR ---
HAND-OFF: Report given to YOSEPH Montalvo. Pt is in stable condition; plan of care endorsed.
--- NOTE | 2018-07-01 07:45 | NUR ---
NURSE NOTES: Pt received from YOSEPH Scott alert and oriented x3 with no s/s of pain, SOB, or n/v. Triple Lumen asymptomatic and patent, running to prescribed IV fluids. Duarte draining to clear and yellow urine. Bed in lowest position, call light and belongings within reach.
[2018-07-01 08:00] VITALS: BP 138/75
--- NOTE | 2018-07-01 08:04 | General Progress Note ---
Assessment/Plan Status: stable Assessment/Plan #Seizure #GLF #Lethargy #medication noncompliance #weakness - resume home meds, lamictal - admits to noncompliance, says she needs refills - stable, no seizures overnight - PT rec snf . CM aware #Hyponatremia- - Na 132, IVF on admit - resolved #JODIE - Cr 1.7 on admit, improved to 1.2 - IVF #Cocaine abuse - UDS +Cocaine - patient admitted to cocaine use #Smoker - smokes around half ppd - i educated patient on smoking cessation for over 15 mins today, patient states she understands and will try to quit diet: regular DVT Prophylaxis: SCD, HSQ Code Status: Full Hospital Classification Declaration: Based on this initial evaluation, and depending on the patient's clinical course, I anticipate that this patient will require hospitalization for 2-3 days for seizures, cocaine abuse, jodie and close respiratory/hemodynamic monitoring. i have reviewed all imaging, labs and medications Disposition: Once the patient is stable to leave the hospital, I anticipate the patient will likely be discharged to the following environment: home I spent 40 minutes on this patient's case, and over 30 mins of face to face time , counseling and/or care coordination. Discussed with patient/family, nursing staff, SW/CM regarding clinical status, treatment course, and disposition planning. Time of note may not reflect time of encounter. ------ Date of Discussion: 06/29/18 A [id number] discussion with the patient regarding the patient's advanced care planning took place during this hospitalization on the above date. The discussion included the explanation and discussion of advance directives and associated forms/documents, as well as the patient's current code status. We also discussed at length the patient's medical conditions (both acute and chronic), general prognosis, treatment options, and goals of care. The following summarizes the discussion: Advance Care Planning/Goals of Care: - Will attempt to fill out an AD and/or POLST with the patient prior to discharge, if not already completed - Continue current evaluation and management of any acute and chronic medical issues - Will continue to support the patient/family - Will continue to discuss both short- and long-term goals of care DPOA-HC/Surrogate Decision Maker: None currently appointed Code Status: Full Code AD Forms/Documents Completed: Deferred A total of 31 minutes was spent on this discussion, including counseling, answering questions, and completing, if any, pertinent advanced care planning forms/documents. Subjective Date patient seen: Jul 01, 2018 Time patient seen: 08:03 Allergies: Coded Allergies: No Known Allergies (Unverified , 09/12/12) Subjective f/u seizures, weakness patient to stay another night due to weakness, patient doesnt feel safe at home on her own PT eval, rec snf no acute events overnight no seizures overnight Objective Last 24 Hour Vital Signs Date Time Temp Pulse Resp B/P (MAP) Pulse Ox O2 Delivery O2 Flow Rate FiO2 07/01/18 04:00 76 07/01/18 04:00 98.1 74 19 143/89 (107) 96 07/01/18 00:00 98.7 81 145/95 (112) 07/01/18 00:00 76 06/30/18 21:00 Room Air 06/30/18 20:00 75 06/30/18 20:00 98.8 80 141/92 (108) 06/30/18 19:07 98.5 06/30/18 15:53 98.5 78 139/90 (106) 06/30/18 15:39 72 06/30/18 11:48 91 06/30/18 11:41 98.5 84 150/101 (117) 06/30/18 09:00 Room Air Intake and Output 06/30/18 07/01/18 19:00 07:00 Intake Total 1100 ml Output Total 900 ml 800 ml Balance 200 ml -800 ml IV Total 1100 ml Output Urine Total 900 ml 800 ml Height (Feet): 5 Height (Inches): 6.00 Weight (Pounds): 140 Objective General Appearance: no apparent distress, alert, lethargic Lines, tubes and drains: peripheral HEENT: normocephalic, atraumatic, anicteric Neck: non-tender, normal alignment, supple, normal inspection Respiratory/Chest: chest wall non-tender, lungs clear, normal breath sounds, no respiratory distress, no accessory muscle use Cardiovascular/Chest: normal peripheral pulses, normal rate, regular rhythm Abdomen: normal bowel sounds, non tender, soft, no organomegaly, no mass Extremities: normal range of motion, non-tender, normal inspection, no calf tenderness, normal capillary refill Neurologic: is analyst II-XII grossly normal, no motor/sensory deficits, alert, responsive, normal mood/affect Ean Saba MD Jul 01, 2018 08:04
[2018-07-01 08:29] LABS: ANION GAP 9 mmol/L (5-15); BLOOD UREA NITROGEN 13 mg/dL (7-18); CALCIUM 9.6 MG/DL (8.5-10.1); CARBON DIOXIDE 22 MMOL/L (21-32); CHLORIDE 108 MMOL/L (98-107); CREATININE 1.3 MG/DL (0.55-1.30); POTASSIUM 3.6 MMOL/L (3.5-5.1); SODIUM 139 MMOL/L (136-145)
[2018-07-01 08:52] LABS: BASOPHILS % (AUTO) 1.1 % (0.0-2.0); EOSINOPHILS % (AUTO) 7.3 % (0.0-3.0); HEMATOCRIT 27.3 % (37.0-47.0); HEMOGLOBIN 8.8 G/DL (12.0-16.0); LYMPHOCYTES % (AUTO) 32.7 % (20.0-45.0); MEAN CORPUSCULAR VOLUME 89 FL (80-99); MONOCYTES % (AUTO) 6.6 % (1.0-10.0); NEUTROPHILS % (AUTO) 52.3 % (45.0-75.0); PLATELET COUNT 351 K/UL (150-450); RED BLOOD COUNT 3.08 M/UL (4.20-5.40); RED CELL DISTRIBUTION WIDTH 12.5 % (11.6-14.8)
--- NOTE | 2018-07-01 09:01 | NUR ---
DISCHARGE PLAN PATIENT WILL DISCHARGE TO: [facility] ROOM [address] SKILLED T: [phone] FOR NURSE TO NURSE REPORT [facility] HAS BEEN ARRANGED FOR [id number] [employer]STIGATIONS CONSULTANT TRANSFER FORM COMPLETED
--- NOTE | 2018-07-01 11:19 | NUR ---
NURSE NOTES: Pt discharged to [facility], RN gave report to Birgit RODRIGUEZ, scheduled for pickup at 1045 AM. RN d/mynor ceja and triple lumen line in right upper leg, line was intact and bleeding was managed prior to d/c. Pt able to urinate using bedpan (200 cc) prior to d/c. Pt could not sign belongings sheet or discharge sheet d/t right arm in splint but pt verbalized understanding. Rohith Loredo RN and Bianca Myers RN cosigned pt's belongings and discharge information. Pt left with her own walker and belongings - pants, tanktop, hat, and samsung phone. No wounds upon discharge, skin intact. Daughter, Haylie Campbell was informed of pt's discharge to [facility], RN left voicemail message. Pt left in 111 in stable condition with no s/s or complaints or pain, SOB, or n/v.
[2018-07-01] MEDS ORDERED: Dyna-Hex 2% Top Sol 2oz TOPIC SCH (20:00)
--- NOTE | 2018-07-02 01:49 | General Progress Note ---
Assessment/Plan Assessment/Plan Assessment/Plan # Anemia of chronic disease -- consider w/u if patient still admitted tomorrow though appears potential dc --> anemia panel to be ordered if still here tomorrow: fereritin, tibc, esr, crp , tsh --> transfuse if hgb <7 # Seizure disorder given keprra in the er --> currently seizure as subsided and to get seen by neuro # GLF multiple etiologies possible --> consider neuro eval as needed # Lethargy --> resume home meds, lamictal --> will need to continue to figure if patient is compliant or not with medication and if she has been on any other meds --> recommended drug cessation, illicit substances # Hyponatremia- - Na 132, IVF, monitor # JODIE--> Cr 1.7- # Cocaine abuse --> UDS +Cocaine although pt denied drug use to me during discussion Greatly appreciate consultation! Subjective Constitutional: Denies: no symptoms, chills, diaphoresis, fever, malaise, weakness, other HEENT: Denies: no symptoms, eye pain, blurred vision, tearing, double vision, ear pain, ear discharge, nose pain, nose congestion, throat pain, throat swelling, mouth pain, mouth swelling, other Cardiovascular: Denies: no symptoms, chest pain, edema, irregular heart rate, lightheadedness, palpitations, syncope, other Respiratory: Denies: no symptoms, cough, orthopnea, shortness of breath, SOB with excertion, SOB at rest, sputum, stridor, wheezing, other Gastrointestinal/Abdominal: Denies: no symptoms, abdomen distended, abdominal pain, black stools, tarry stools, blood in stool, constipated, diarrhea, difficulty swallowing, nausea, poor appetite, poor fluid intake, rectal bleeding , vomiting, other Genitourinary: Denies: no symptoms, burning, discharge, frequency, flank pain, hematuria, incontinence, pain, urgency, other Neurologic/Psychiatric: Denies: no symptoms, anxiety, depressed, emotional problems, headache, numbness, paresthesia, pre-existing deficit, seizure, tingling, tremors, weakness, other Endocrine: Denies: no symptoms, excessive sweating, flushing, intolerance to cold, intolerance to heat, increased hunger, increased thirst, increased urine, unexplained weight gain, unexplained weight loss, other Allergies: Coded Allergies: No Known Allergies (Unverified , 09/12/12) Subjective 07/01/18: Pt is seen in the room, resting in bed. no acute distress, H/H stable. cbc reviewed. Objective Last 24 Hour Vital Signs Date Time Temp Pulse Resp B/P (MAP) Pulse Ox O2 Delivery O2 Flow Rate FiO2 07/01/18 09:00 Room Air 07/01/18 08:00 97.7 65 18 138/75 (96) 95 07/01/18 08:00 82 07/01/18 04:00 76 07/01/18 04:00 98.1 74 19 143/89 (107) 96 Intake and Output 07/01/18 07/02/18 19:00 07:00 Intake Total 240 ml Balance 240 ml Intake Oral 240 ml Laboratory Tests 07/01/18 06:45: White Blood Count 11.0H, Red Blood Count 3.08L, Hemoglobin 8.8L, Hematocrit 27.3L, Mean Corpuscular Volume 89, Mean Corpuscular Hemoglobin 28.5, Mean Corpuscular Hemoglobin Concent 32.1, Red Cell Distribution Width 12.5, Platelet Count 351, Mean Platelet Volume 5.2L, Neutrophils (%) (Auto) 52.3, Lymphocytes ( %) (Auto) 32.7, Monocytes (%) (Auto) 6.6, Eosinophils (%) (Auto) 7.3H, Basophils (%) (Auto) 1.1, Sodium Level 139, Potassium Level 3.6, Chloride Level 108H, Carbon Dioxide Level 22, Anion Gap 9, Blood Urea Nitrogen 13, Creatinine 1.3, Estimat Glomerular Filtration Rate 50.3, Glucose Level 87, Calcium Level 9.6 Height (Feet): 5 Height (Inches): 6.00 Weight (Pounds): 140 Objective Physical Exam General Appearance: no apparent distress, alert, lethargic Lines, tubes and drains: peripheral HEENT: normocephalic, atraumatic, anicteric Neck: non-tender, normal alignment, supple, normal inspection Respiratory/Chest: chest wall non-tender, lungs clear Cardiovascular/Chest: normal peripheral pulses Abdomen: normal bowel sounds, non tender Extremities: normal range of motion, non-tender, normal inspection Neurologic: mobile developer II-XII grossly normal, no motor/sensory deficits, alert, responsive, normal mood/affect Nick Marley MD Jul 02, 2018 01:49
== END 2018-07-01 11:20 | DRG 101 ==
LOC: EDBD 17:14 → EDBEDREQ 17:31 → EMR 17:44 → 2E 17:47 → EDBEDREQ 06-29 06:12
DX: G40.909 Epilepsy, unspecified, not intractable, without status epilepticus (principal); E87.1 Hypo-osmolality and hyponatremia; N17.9 Acute kidney failure, unspecified; F14.10 Cocaine abuse, uncomplicated
CPT/HCPCS: 36415; 70450; 71045; 72125; 80048; 80053; 80061; 80307; 81003; 82550; 82553; 84484; 85025; 87086; 93005; 96361; 96365; 96375; 99285

== ENCOUNTER 2018-11-23 22:21 | Emergency (ER) | payer MEDICARE, MEDICAID ==
[~2018-11-23] VITALS: Ht 167.6 cm; Wt 54.4 kg
[~2018-11-23 22:21] MED LIST changes: +AUGMENTIN 875-1 EAC1 ORAL; +FEOSOL325 MG ORAL; +FERROUS SU325 MG/5 M GT; +GUAIFENESI100 MG/5 M ORAL; +KEPPRA500 M4 ORAL; +LISINOPRIL10 MG ORAL; +NORCO 5-325 TA1 EACH ORAL; +NORVASC5 MG ORAL
[2018-11-23 22:30] VITALS: BP 157/100
[2018-11-23] MEDS ORDERED: LORazepam Inj 2mg/ml 1ml IV ONE (22:30)
[2018-11-23] MEDS ORDERED: oxyCODONE HCL/Acetaminophen 5/325mg ORAL ONE (22:30)
--- NOTE | 2018-11-23 22:35 | NUR ---
ED Nurse Note: Patient was brought by ambulance from home due to seizure. Per patient she had a seizure for 60 sec, unwitnessed. States that it was not a bad one, and she called 911 because she is scared to have a long one. Patient was AAO x4 upon arival, VSS at this time, skin is dry, intact. Patient remain anxious, keep telling" am scared to have long seizure."
--- NOTE | 2018-11-23 22:35 | Emergency Room Report ---
History of Present Illness General Chief Complaint: Seizure Source: Patient, EMS Present Illness HPI Patient presents worried that she could have a seizure. She's anxious. She's on 2 antiseizure medications. She denies headache. 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 She believes that there's been no change in the weakness and numbness. She denies fevers, vomiting, diarrhea or dysuria. The patient also complains about an open wound in her abdomen that's of post operative years ago. Allergies: Coded Allergies: No Known Allergies (Unverified , 09/12/12) Patient History Last Menstrual Period: na Nursing Documentation-PMH Past Medical History: No History, Except For Hx Hypertension: Yes Hx Pacemaker: No Hx Asthma: Yes Hx COPD: Yes Hx Diabetes: Yes Hx Cancer: No Hx Gastrointestinal Problems: Yes - DIVERTICULITS, FISTULA Hx Neurological Problems: Yes - 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 Hx Cerebrovascular Accident: Yes Hx Transient Ischemic Attacks: No Hx Dementia: No Hx Alzheimer's Disease: No Hx Parkinson's Disease: No Hx Meningitis: No Hx Encephalitis: No Hx Seizures: Yes Hx Epilepsy: No Hx Multiple Sclerosis: No Hx Cerebral Palsy: No Hx Amyotrophic Lat Sclerosis: No Hx Guillian-[place] Syndrome: No Hx Paralysis: No Hx Peripheral Neuropathy: No Hx Spinal Cord Injury: No Hx Head Trauma: No Hx Traumatic Brain Injury: No Hx Memory Loss: No Hx Concentration Difficulty: No Hx Speech Problem: No Hx Tremors: No Hx Vertigo: No Hx Dizziness: No Hx Syncope: No Hx Headaches: No Hx Aphasia: No Hx Dysphasia: No Hx Numbness: No Hx Weakness: Yes Hx Fatigue: No Hx Neurologic Surgery: No Hx Brain Shunt: No Physical Exam Vital Signs Date Time Temp Pulse Resp B/P (MAP) Pulse Ox O2 Delivery O2 Flow Rate FiO2 11/23/18 22:16 98.1 90 16 157/100 (119) 100 Room Air Medical Decision Making Diagnostic Impression: Primary Impression: UTI (urinary tract infection) Additional Impressions: Anxiety Status post stroke H/O tonic-clonic seizures Chronic post surgical wound abdomen ER Course Patient post stroke that's worried about having another seizure and has abdominal pain from a surgical wound. Differential includes cellulitis, electro right imbalance, anxiety amongst others. The patient will be evaluated with EKG chest x-ray and labs. The Tiffotrigine are not able to be determined at this time. She'll be given a dose of Ativan and Percocet. Treated for UTI. Resting without complaints. Requested breathing treatment. Laboratory Tests Test 11/23/18 22:40 11/23/18 23:00 Urine Color Pale yellow Urine Appearance Slightly cloudy Urine pH 6 (4.5-8.0) Urine Specific [place] 1.025 (1.005-1.035) Urine Protein 3+ (NEGATIVE) H Urine Glucose (UA) Negative (NEGATIVE) Urine Ketones Negative (NEGATIVE) Urine Blood Negative (NEGATIVE) Urine Nitrite Negative (NEGATIVE) Urine Bilirubin Negative (NEGATIVE) Urine Urobilinogen Normal MG/DL (0.0-1.0) Urine Leukocyte Esterase 2+ (NEGATIVE) H Urine RBC 0-2 /HPF (0 - 2) Urine WBC 20-30 /HPF (0 - 2) H Urine Squamous Epithelial Cells Many /LPF (NONE/OCC) H Urine Bacteria Moderate /HPF (NONE) H Urine Opiates Screen Positive (NEGATIVE) H Urine Barbiturates Screen Negative (NEGATIVE) Phencyclidine (PCP) Screen Negative (NEGATIVE) Urine Amphetamines Screen Negative (NEGATIVE) Urine Benzodiazepines Screen Negative (NEGATIVE) Urine Cocaine Screen Negative (NEGATIVE) Urine Marijuana (THC) Screen Negative (NEGATIVE) White Blood Count 10.3 K/UL (4.8-10.8) Red Blood Count 3.50 M/UL (4.20-5.40) L Hemoglobin 9.7 G/DL (12.0-16.0) L Hematocrit 29.4 % (37.0-47.0) L Mean Corpuscular Volume 84 FL (80-99) Mean Corpuscular Hemoglobin 27.7 PG (27.0-31.0) Mean Corpuscular Hemoglobin Concent 33.0 G/DL (32.0-36.0) Red Cell Distribution Width 11.8 % (11.6-14.8) Platelet Count 445 K/UL (150-450) Mean Platelet Volume 4.8 FL (6.5-10.1) L Neutrophils (%) (Auto) 48.9 % (45.0-75.0) Lymphocytes (%) (Auto) 36.5 % (20.0-45.0) Monocytes (%) (Auto) 10.9 % (1.0-10.0) H Eosinophils (%) (Auto) 2.6 % (0.0-3.0) Basophils (%) (Auto) 1.2 % (0.0-2.0) Sodium Level 133 MMOL/L (136-145) L Potassium Level 3.8 MMOL/L (3.5-5.1) Chloride Level 98 MMOL/L (98-107) Carbon Dioxide Level 27 MMOL/L (21-32) Anion Gap 8 mmol/L (5-15) Blood Urea Nitrogen 11 mg/dL (7-18) Creatinine 1.1 MG/DL (0.55-1.30) Estimate Glomerular Filtration Rate > 60 mL/min (>60) Glucose Level 104 MG/DL (74-106) Calcium Level 10.7 MG/DL (8.5-10.1) H Total Bilirubin 0.2 MG/DL (0.2-1.0) Aspartate Amino Transferase (AST) 11 U/L (15-37) L Alanine Aminotransferase (ALT) 16 U/L (12-78) Alkaline Phosphatase 121 U/L (46-116) H Total Creatine Kinase 31 U/L (26-308) Troponin I 0.000 ng/mL (0.000-0.056) Total Protein 7.6 G/DL (6.4-8.2) Albumin 3.3 G/DL (3.4-5.0) L Globulin 4.3 g/dL Albumin/Globulin Ratio 0.8 (1.0-2.7) L Serum Alcohol < 3 mg/dL EKG Diagnostic Results Rate: normal Rhythm: NSR ST Segments: no acute changes Rhythm Strip Diag. Results EP Interpretation: yes Rhythm: NSR, no PVC's, no ectopy Status: improved Disposition: HOME, SELF-CARE Condition: Improved Shane Orozco MD November 23, 2018 22:35
[2018-11-23 22:55] LABS: APPEARANCE,URINE SLIGHTLY CLOUDY; BILIRUBIN, URINE NEGATIVE (NEGATIVE); COLOR,URINE PALE YELLOW; GLUCOSE, URINE (UA) NEGATIVE (NEGATIVE); KETONES,URINE NEGATIVE (NEGATIVE); LEUKOCYTE ESTERASE ,URINE 2+ (NEGATIVE); NITRITE,URINE NEGATIVE (NEGATIVE); PH,URINE 6 (4.5-8.0); PROTEIN,URINE 3+ (NEGATIVE); UROBILINOGEN,URINE NORMAL MG/DL (0.0-1.0)
[2018-11-23 23:17] LABS: BASOPHILS % (AUTO) 1.2 % (0.0-2.0); EOSINOPHILS % (AUTO) 2.6 % (0.0-3.0); HEMATOCRIT 29.4 % (37.0-47.0); HEMOGLOBIN 9.7 G/DL (12.0-16.0); LYMPHOCYTES % (AUTO) 36.5 % (20.0-45.0); MEAN CORPUSCULAR VOLUME 84 FL (80-99); MONOCYTES % (AUTO) 10.9 % (1.0-10.0); NEUTROPHILS % (AUTO) 48.9 % (45.0-75.0); PLATELET COUNT 445 K/UL (150-450); RED CELL DISTRIBUTION WIDTH 11.8 % (11.6-14.8); WHITE BLOOD COUNT 10.3 K/UL (4.8-10.8)
[2018-11-23 23:22] LABS: ANION GAP 8 mmol/L (5-15); BLOOD UREA NITROGEN 11 mg/dL (7-18); CALCIUM 10.7 MG/DL (8.5-10.1); CARBON DIOXIDE 27 MMOL/L (21-32); CHLORIDE 98 MMOL/L (98-107); CREATININE 1.1 MG/DL (0.55-1.30); POTASSIUM 3.8 MMOL/L (3.5-5.1); SODIUM 133 MMOL/L (136-145)
[2018-11-23 23:27] LABS: ALANINE AMINOTRANSFERASE 16 U/L (12-78); ALBUMIN 3.3 G/DL (3.4-5.0); ALBUMIN/GLOBULIN RATIO 0.8 (1.0-2.7); ALKALINE PHOSPHATASE 121 U/L (46-116); ASPARTATE AMINO TRANSFERASE 11 U/L (15-37); BILIRUBIN,TOTAL 0.2 MG/DL (0.2-1.0); CREATINE KINASE 31 U/L (26-308)
[2018-11-23] MEDS ORDERED: cefTRIAXone 1 GM in NS 55 ML IVPB ONE (23:30)
--- NOTE | 2018-11-24 00:05 | NUR ---
ED Nurse Note: Patient is in the bed resting, no acute disstress noticed. VSS at this time.
[2018-11-24 00:47] VITALS: BP 147/98
[2018-11-24 02:38] VITALS: BP 147/98
[2018-11-24] MEDS ORDERED: Albuterol ud Inhalation HHN ONE (04:00)
[2018-11-24] MEDS ORDERED: VISTARIL25 M1 PO (04:03)
[2018-11-24] MEDS ORDERED: NITROFURANTOIN100 M2 ORAL (04:03)
[2018-11-24] MEDS ORDERED: TYLENOL325 MG ORAL (04:03)
[2018-11-24 04:58] VITALS: BP 110/76
[2018-11-24 05:47] VITALS: BP 110/65
--- NOTE | 2018-11-24 05:49 | NUR ---
ER DISCHARGE NOTE: Patient is cleared to be discharged per ERMD, pt is aox4, on room air, with stable vital signs. pt was given dc and prescription instructions, pt was able to verbalize understanding, pt id band and iv site removed without complications. Patient was transfered home by [facility] ambulance #[id number]. Pt took all belongings.
--- NOTE | 2018-11-24 11:25 | Diagnostic Imaging Report ---
Indication: Shortness of breath Technique: One view of the chest Comparison: 07/21/2018 Findings: The lungs and pleural spaces are clear. Heart size is normal. The aorta is calcified. There is no significant interim change Impression: No acute process
--- NOTE | 2018-11-24 12:11 | Cardiology Report ---
APPROVED REPORT EKG Measurement Heart [id number] Normal sinus rhythm Normal ECG
== END 2018-11-24 05:50 | disposition home or self-care (01) ==
LOC: EDBD 22:21 → EMR 11-24 03:55
DX: N39.0 Urinary tract infection, site not specified (principal); S31.109D Unspecified open wound of abdominal wall, unspecified quadrant without penetration into peritoneal cavity, subsequent encounter; X58.XXXD Exposure to other specified factors, subsequent encounter; F41.9 Anxiety disorder, unspecified; G40.409 Other generalized epilepsy and epileptic syndromes, not intractable, without status epilepticus; J44.9 Chronic obstructive pulmonary disease, unspecified; E11.9 Type 2 diabetes mellitus without complications; Z86.73 Personal history of transient ischemic attack (TIA), and cerebral infarction without residual deficits
CPT/HCPCS: 36415; 71045; 80053; 80307; 81003; 82550; 82962; 84484; 85025; 87086; 93005; 94640; 94664; 96361; 96365; 96375; 99284; G0480; J0696; 80329

== ENCOUNTER 2019-07-26 05:59 | Inpatient (IN) | payer MEDICARE, MEDICAID ==
[~2019-07-26] VITALS: Ht 165.1 cm; Wt 49.1 kg
[~2019-07-26 05:59] MED LIST changes: +NITROFURANTOIN100 M2 ORAL; +TYLENOL325 MG ORAL; +VISTARIL25 M1 PO
[2019-07-26] MEDS ORDERED: levETIRAcetam 500 MG in D5W 110 ML IV ONE (06:15)
--- NOTE | 2019-07-26 06:15 | NUR ---
ED Nurse Note: Recieved pt BIBA from home, here with c/o s/p SZ activity witnessed by family, pt arrived post ictal, eyes open and appears to understnad but not verbal, pt immediately gowned and placed on monitoirng, IV line placed and labs drawn, pt also straight cath for urine sample, side rails padded for seizure activity, none noted at this time, will remain on sz precautions and continue to closely moniotr.
--- NOTE | 2019-07-26 06:21 | Emergency Room Report ---
History of Present Illness General Chief Complaint: Seizure Source: EMS Present Illness HPI EMS was called to the home of this patient. She has a history of seizures. She had a least seizures. They administered Versed to the patient. This stopped the seizure activity. Allegedly she is on Keppra. She is postictal at this time and no further history is available. Paramedics denie any history of vomiting or fever. They deny any history of head trauma. Last admitted 06/2018. D/C dx: (1) Hypercalcemia (2) Seizure disorder (3) Encephalopathy acute (4) Epileptic seizure, generalized (5) Cholelithiasis (6) Cocaine abuse (7) Anemia (8) Leukocytosis (9) Renal insufficiency (10) Hypertension (11) Metabolic acidosis (12) Altered level of consciousness (13) UTI (lower urinary tract infection) Allergies: Coded Allergies: No Known Allergies (Unverified , 09/12/12) Patient History Past Medical History: see triage record, old chart reviewed Past Surgical History: other - abdominal fistula Social History: Reports: drug use - see tox; Denies: smoking, alcohol use Social History Narrative home with wellness instructor Reviewed Nursing Documentation: PMH: Agreed; PSxH: Agreed Nursing Documentation-PMH Hx Hypertension: Yes Hx Pacemaker: No Hx Asthma: Yes Hx COPD: Yes Hx Diabetes: Yes Hx Cancer: No Hx Gastrointestinal Problems: Yes - DIVERTICULITS, FISTULA Hx Neurological Problems: Yes - 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 Hx Cerebrovascular Accident: Yes Hx Transient Ischemic Attacks: No Hx Dementia: No Hx Alzheimer's Disease: No Hx Parkinson's Disease: No Hx Meningitis: No Hx Encephalitis: No Hx Seizures: Yes Hx Epilepsy: No Hx Multiple Sclerosis: No Hx Cerebral Palsy: No Hx Amyotrophic Lat Sclerosis: No Hx Guillian-[place] Syndrome: No Hx Paralysis: No Hx Peripheral Neuropathy: No Hx Spinal Cord Injury: No Hx Head Trauma: No Hx Traumatic Brain Injury: No Hx Memory Loss: No Hx Concentration Difficulty: No Hx Speech Problem: No Hx Tremors: No Hx Vertigo: No Hx Dizziness: No Hx Syncope: No Hx Headaches: No Hx Aphasia: No Hx Dysphasia: No Hx Numbness: No Hx Weakness: Yes Hx Fatigue: No Hx Neurologic Surgery: No Hx Brain Shunt: No Review of Systems All Other Systems: limited Physical Exam Vital Signs Date Time Temp Pulse Resp B/P (MAP) Pulse Ox O2 Delivery O2 Flow Rate FiO2 07/26/19 05:56 98.2 95 18 111/78 (89) 99 Room Air Sp02 EP Interpretation: reviewed, normal General Appearance: thin, Chronically Ill, Postictal Head: normocephalic, atraumatic Eyes: bilateral eye normal inspection, bilateral eye PERRL, bilateral eye abnormal EOM ENT: moist mucus membranes Neck: supple Respiratory: lungs clear, normal breath sounds Cardiovascular #1: regular rate, rhythm, no edema Cardiovascular #2: 2+ radial (R) Gastrointestinal: non tender, no mass, non-distended, decreased bowel sounds Musculoskeletal: back normal, other - extensor contraction R Neurologic: motor weakness - R hemiparesis, Babinski - L, not react R, other - post ictal Psychiatric: other - post ictal Skin: no rash, warm/dry Medical Decision Making Diagnostic Impression: Primary Impression: Uncontrolled seizures Qualified Codes: R56.9 - Unspecified convulsions Additional Impressions: Cocaine abuse Right hemiparesis UTI (urinary tract infection) Qualified Codes: N39.0 - Urinary tract infection, site not specified Renal insufficiency Status post stroke ER Course Patient presents post 3 seizures receiving Versed in the field. Differential includes breakthrough seizures, noncompliance, electrolyte imbalance, brain bleed amongst others. Evaluation with EKG, chest x-ray, CT of the head and labs. Keppra level ordered. Received Versed in the field. Keppra ordered. Evaluation for possible aspiration. EKG without injury. Chest x-ray no infiltrates. CT with prior CVA. White count normal. Renal insufficiency. Tox screen positive for cocaine and benzodiazepines (present in the field). Pyuria. Called message left with family to call. Left message patient be admitted. Request for private physician's information. 7:10 Patient OX2. Not seeing any MD. Focal neuro. 7:18 - consider new CVA - however , as recent seizure and abnormal CT, tPA contraindicated. Consider Tyler's paralysis. May also be underlying hemiparesis from prior CVA. Discussed cocaine abuse with patient. Patient improved and admitted to telemetry. No further seizure activity. Laboratory Tests Test 07/26/19 06:20 07/26/19 06:35 White Blood Count 10.4 K/UL (4.8-10.8) Red Blood Count 4.15 M/UL (4.20-5.40) L Hemoglobin 11.7 G/DL (12.0-16.0) L Hematocrit 34.8 % (37.0-47.0) L Mean Corpuscular Volume 84 FL (80-99) Mean Corpuscular Hemoglobin 28.1 PG (27.0-31.0) Mean Corpuscular Hemoglobin Concent 33.6 G/DL (32.0-36.0) Red Cell Distribution Width 11.2 % (11.6-14.8) L Platelet Count 538 K/UL (150-450) H Mean Platelet Volume 4.8 FL (6.5-10.1) L Neutrophils (%) (Auto) 62.9 % (45.0-75.0) Lymphocytes (%) (Auto) 25.7 % (20.0-45.0) Monocytes (%) (Auto) 7.7 % (1.0-10.0) Eosinophils (%) (Auto) 2.1 % (0.0-3.0) Basophils (%) (Auto) 1.7 % (0.0-2.0) Sodium Level 126 MMOL/L (136-145) L Potassium Level 3.6 MMOL/L (3.5-5.1) Chloride Level 90 MMOL/L (98-107) L Carbon Dioxide Level 22 MMOL/L (21-32) Anion Gap 14 mmol/L (5-15) Blood Urea Nitrogen 12 mg/dL (7-18) Creatinine 1.6 MG/DL (0.55-1.30) H Estimate Glomerular Filtration Rate 39.5 mL/min (>60) Glucose Level 107 MG/DL (74-106) H Calcium Level 10.6 MG/DL (8.5-10.1) H Total Bilirubin 0.4 MG/DL (0.2-1.0) Aspartate Amino Transferase (AST) 13 U/L (15-37) L Alanine Aminotransferase (ALT) 17 U/L (12-78) Alkaline Phosphatase 147 U/L (46-116) H Total Creatine Kinase 104 U/L (26-308) Troponin I 0.000 ng/mL (0.000-0.056) Total Protein 8.7 G/DL (6.4-8.2) H Albumin 4.3 G/DL (3.4-5.0) Globulin 4.4 g/dL Albumin/Globulin Ratio 1.0 (1.0-2.7) Levetiracetam Level Pending Serum Alcohol < 3 mg/dL Urine Color Pale yellow Urine Appearance Clear Urine pH 6 (4.5-8.0) Urine Specific [place] 1.015 (1.005-1.035) Urine Protein 3+ (NEGATIVE) H Urine Glucose (UA) Negative (NEGATIVE) Urine Ketones Negative (NEGATIVE) Urine Blood 2+ (NEGATIVE) H Urine Nitrite Negative (NEGATIVE) Urine Bilirubin Negative (NEGATIVE) Urine Urobilinogen Normal MG/DL (0.0-1.0) Urine Leukocyte Esterase 1+ (NEGATIVE) H Urine RBC 2-4 /HPF (0 - 2) H Urine WBC 5-10 /HPF (0 - 2) H Urine Squamous Epithelial Cells Moderate /LPF (NONE/OCC) H Urine Bacteria Few /HPF (NONE) Urine Opiates Screen Negative (NEGATIVE) Urine Barbiturates Screen Negative (NEGATIVE) Phencyclidine (PCP) Screen Negative (NEGATIVE) Urine Amphetamines Screen Negative (NEGATIVE) Urine Benzodiazepines Screen Positive (NEGATIVE) H Urine Cocaine Screen Positive (NEGATIVE) H Urine Marijuana (THC) Screen Negative (NEGATIVE) EKG Diagnostic Results Rate: tachycardiac Rhythm: NSR ST Segments: no acute changes Rhythm Strip Diag. Results EP Interpretation: yes Rhythm: no PVC's, no ectopy, other - Sinus tachycardia Chest X-Ray Diagnostic Results Chest X-Ray Diagnostic Results : Chest X-Ray Ordered: Yes # of Views/Limited/Complete: 1 View Indication: Other EP Interpretation: Yes Interpretation: no consolidation, no effusion, no pneumothorax, other - COPD Impression: Other Electronically Signed by: Electronically signed by Shane Orozco MD CT/MRI/US Diagnostic Results CT/MRI/US Diagnostic Results : Imaging Test Ordered: CT head Impression L encephalomalacia Last Vital Signs Date Time Temp Pulse Resp B/P (MAP) Pulse Ox O2 Delivery O2 Flow Rate FiO2 07/26/19 11:07 Room Air 07/26/19 10:47 98.2 77 15 115/75 100 Status: improved Disposition: ADMITTED INPATIENT Condition: Serious Scripts No Active Prescriptions or Reported Meds Referrals: NOT CHOSEN IPA/,REFERRING (PCP) Shane Orozco MD Jul 26, 2019 06:21
[2019-07-26 06:30] VITALS: BP 128/80
[2019-07-26 06:44] LABS: BASOPHILS % (AUTO) 1.7 % (0.0-2.0); EOSINOPHILS % (AUTO) 2.1 % (0.0-3.0); HEMATOCRIT 34.8 % (37.0-47.0); HEMOGLOBIN 11.7 G/DL (12.0-16.0); LYMPHOCYTES % (AUTO) 25.7 % (20.0-45.0); MEAN CORPUSCULAR VOLUME 84 FL (80-99); MONOCYTES % (AUTO) 7.7 % (1.0-10.0); NEUTROPHILS % (AUTO) 62.9 % (45.0-75.0); PLATELET COUNT 538 K/UL (150-450); RED BLOOD COUNT 4.15 M/UL (4.20-5.40); RED CELL DISTRIBUTION WIDTH 11.2 % (11.6-14.8); WHITE BLOOD COUNT 10.4 K/UL (4.8-10.8)
[2019-07-26 06:49] LABS: APPEARANCE,URINE CLEAR; BILIRUBIN, URINE NEGATIVE (NEGATIVE); COLOR,URINE PALE YELLOW; GLUCOSE, URINE (UA) NEGATIVE (NEGATIVE); KETONES,URINE NEGATIVE (NEGATIVE); LEUKOCYTE ESTERASE ,URINE 1+ (NEGATIVE); NITRITE,URINE NEGATIVE (NEGATIVE); PH,URINE 6 (4.5-8.0); PROTEIN,URINE 3+ (NEGATIVE); UROBILINOGEN,URINE NORMAL MG/DL (0.0-1.0)
[2019-07-26 06:58] LABS: ANION GAP 14 mmol/L (5-15); BLOOD UREA NITROGEN 12 mg/dL (7-18); CALCIUM 10.6 MG/DL (8.5-10.1); CARBON DIOXIDE 22 MMOL/L (21-32); CHLORIDE 90 MMOL/L (98-107); CREATININE 1.6 MG/DL (0.55-1.30); POTASSIUM 3.6 MMOL/L (3.5-5.1); SODIUM 126 MMOL/L (136-145)
[2019-07-26 07:02] LABS: ALANINE AMINOTRANSFERASE 17 U/L (12-78); ALBUMIN 4.3 G/DL (3.4-5.0); ALKALINE PHOSPHATASE 147 U/L (46-116); ASPARTATE AMINO TRANSFERASE 13 U/L (15-37); BILIRUBIN,TOTAL 0.4 MG/DL (0.2-1.0); CREATINE KINASE 104 U/L (26-308)
--- NOTE | 2019-07-26 07:14 | Diagnostic Imaging Report ---
Indications: Seizure Technique: Spiral acquisitions obtained through the brain. Angled axial and coronal 5 x 5 mm slices were reconstructed. Total dose length product 1274 mGycm. CTDI vol(s) 6 mGy. Dose reduction achieved using automated exposure control Comparison: 07/21/2018 Findings: Again demonstrated is extensive encephalomalacia involving the left parietal, temporal, and occipital lobes. There is a small area of focal sulcal dilatation in the posterior high parietal lobe on the right, consistent with an old cortical infarct, unchanged. There are bilateral old colonic lacunar infarcts again noted. There is generalized age-related enlargement of the ventricles and extra axial CSF spaces. There is extensive periventricular deep white matter low-attenuation consistent with chronic microvascular ischemic change. No acute intercranial hemorrhage or edema. No mass effect nor midline shift. Normal edwards-white differentiation otherwise. The mastoids are clear. The sinuses are clear. The orbits are unremarkable. The calvarium is intact. Impression: Negative for acute intracranial bleed or mass effect Large old left middle cerebral artery distribution infarct, also previously reported Multiple other old infarcts as described and noted previously, including the right parietal lobe, bilateral thalami Other chronic and age-related changes as described This agrees with the preliminary interpretation provided overnight by [facility] teleradiology service. The CT scanner at [facility] is accredited by the [employer] and the scans are performed using protocols designed to limit radiation exposure to as low as reasonably achievable to attain images of sufficient resolution adequate for diagnostic evaluation.
--- NOTE | 2019-07-26 07:25 | NUR ---
HAND-OFF: Report given to YOSEPH Winkler.
--- NOTE | 2019-07-26 07:25 | NUR ---
ED Nurse Note: Received patient in bed. patient is now alert awake x2, on a content production specialist, vitals stable.
--- NOTE | 2019-07-26 08:10 | NUR ---
ED Nurse Note: no seizure activity noted at this time. patient reports "I can't move my right arm. It's been a while" patient can feel bialteral arms equally. Dr. Henao notified. patient is alert awake x2, appears to be confused, RN reasssured and reoriented patients. 2 blankets provided.
--- NOTE | 2019-07-26 09:46 | Diagnostic Imaging Report ---
Indication: Shortness of breath Technique: One view of the chest Comparison: 11/23/2018 Findings: Lungs and pleural spaces are clear. Heart size is normal. Aorta is tortuous and calcified. Surgical clips are seen in the left upper quadrant of the abdomen. Findings are unchanged Impression: No acute process
[2019-07-26 10:12] VITALS: BP 115/75
--- NOTE | 2019-07-26 10:47 | NUR ---
ED Nurse Note: patient is being transferred to [facility]W with all of his belongings, endorsed all plan of care to Jakob HAMEDE.
--- NOTE | 2019-07-26 11:07 | NUR ---
NURSE NOTES: Received report from YOSEPH Winkler. Patient arrive to unit in stable condition. No s/sx of SOB, breathing is even and unlabored. Denies any presence of pain or discomfort at this time. Bed is in lowest position, brakes engaged. Call light is kept within easy reach. Will continue to monitor patient.
--- NOTE | 2019-07-26 12:30 | NUR ---
NURSE NOTES: Received admission orders from Dr. Boland. Orders entered. Informed Dr. Boland that patient's sodium level is 126, Dr. Boland acknowledged and no new orders given at this time. Will continue to monitor patient.
[2019-07-26] MEDS ORDERED: HYDROcodone/Acetamin 5/325 tab ORAL PRN ×2 (13:15→19:15)
[2019-07-26] MEDS ORDERED: LORazepam Inj 2mg/ml 1ml IV PRN ×2 (13:15→19:15)
--- NOTE | 2019-07-26 16:05 | NUR ---
NURSE NOTES: Pt transferred from ED stella coombs with RN and tech. Report received report from Cathi HAMEED. Pt awake and confused, side rails x3 up for safety. IV site in right AC 20G SL patent and asymptomatic. Call light within easy reach. both legs are contracted. Per RN @SNF, Pt's base line of mental status is AOX2. Will contact the MD for orders for brain imaging
--- NOTE | 2019-07-26 16:05 | NUR ---
TRANSFER TO FLOOR: Patient is telemetry overflow. Patient transferred to Telemetry IB723-5. Report given to YOSEPH Castaneda. Belongings and medications given to YOSEPH Castaneda. Family and informed of transfer.
[2019-07-26] MEDS ORDERED: Montelukast 10mg tablet ORAL SCH (16:30)
[2019-07-26] MEDS ORDERED: NovoLOG Insulin Flexpen SUBQ SCH (16:30)
--- NOTE | 2019-07-26 19:00 | NUR ---
NURSE NOTES: Received report from YOSEPH Mccoy. Patient is awake, lying in semi tai's; resting comfortably. A/Ox3. Denies pain at this time. No signs of acute distress noted. Checked IV site and flushed. No erythema, bleeding or infiltration noted. On padded siderails for seizure precaution. Fall and aspiration risk precaution. Bed at lowest position, brakes on, siderailsx3. Call light within reach. Will continue to monitor.
--- NOTE | 2019-07-26 19:50 | NUR ---
HAND-OFF: Report given to Radha HAMEED. Pt remains stable.
[2019-07-26 20:00] VITALS: BP 124/70
[2019-07-26] MEDS: NovoLOG Insulin Flexpen SUBQ SCH (20:54)
[2019-07-26] MEDS ORDERED: Methocarbamol 750mg tab ORAL SCH ×2 (21:00)
--- NOTE | 2019-07-26 23:30 | History and Physical Report ---
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 The patient currently awake, alert. The patient has no seizure during the hospital course. She is physically doing better. The patient has been admitted at different hospital under my care. She also has a history of CVA, hemiparesis. The patient is mostly wheelchair bound. PAST MEDICAL HISTORY: Seizure. MEDICATIONS: See the list. ALLERGIES: NKA. FAMILY HISTORY: Noncontributory. SOCIAL HISTORY: Lives at home with synthetic gem press operator. She denies any smoking and drinking. Denies any illegal drugs. REVIEW OF SYSTEMS: Generalized weakness, tired, feeling dehydrated. PHYSICAL EXAMINATION: VITAL SIGNS: Blood pressure is 115/75, pulse 77, respirations 15, temperature 98.2. HEENT: AT/NC. EOMI. PERRLA. NECK: Supple. No JVD. CHEST: Bilaterally clear. CARDIOVASCULAR: Regular rhythm. No gallop. No murmur. ABDOMEN: Soft. Positive bowel sounds. Nontender. EXTREMITIES: No edema. GENITOURINARY: Deferred. LABORATORY EXAMINATION: White counts are 10,000, hemoglobin 12, hematocrit 35, platelets are 538. Chemistry panel, sodium 126, potassium 3.6, BUN 12, creatinine 1.6, glucose 107. Troponins are negative. Albumin is 4.3. Toxicology report is positive and cocaine. Urine has 1+ leukocyte esterase, 2+ ketones, 3+ protein. IMAGING: The patient also has CT of brain. The patient has negative for acute intracranial mass effect, large old left middle cerebral artery infarct old one, multiple other older smaller infarcts. ASSESSMENT: 1. Seizure. 2. Substance abuse. 3. Hypertension. 4. CVA. PLAN: We will admit her on telemetry bed. Start Keppra. Continue Singulair. Continue Lamictal. Continue nitrofurantoin, Keppra, methocarbamol, lorazepam. Consider psych consult. Continue Norvasc. PT and OT. Blaze Rowan Boland DR: YOLANDA JOB#: [id number] CC:
[2019-07-27] VITALS: BP 108/65
--- NOTE | 2019-07-27 01:27 | NUR ---
NURSE NOTES: Resting throughout the night. No significant change of condition noted. Will continue to monitor.
--- NOTE | 2019-07-27 02:00 | NUR ---
NURSE NOTES: No seizure noted. Will continue to monitor.
[2019-07-27 04:00] VITALS: BP 120/66
[2019-07-27] MEDS: NovoLOG Insulin Flexpen SUBQ SCH ×4 (06:30→21:00)
--- NOTE | 2019-07-27 07:20 | NUR ---
HAND-OFF: Report given to YOSEPH Mccoy. Plan of care endorsed.
--- NOTE | 2019-07-27 07:20 | NUR ---
NURSE NOTES: Received report from Radha HAMEED. Pt in bed awake and oriented x4 and able to make needs known but forgetful. No c/o pain. No acute distress or seizure aura noted. Bed in lowest position and locked. Call light within easy reach. Side rails x2 up fro safety. Will continue to plan of care.
[2019-07-27 07:57] VITALS: BP 122/71
--- NOTE | 2019-07-27 09:20 | NUR ---
PT EVALUATION NOTE Patient seen for initial evaluation. Patient presents with generalized weakness and decreased balance which impairs patient's ability to perform mobility tasks safely. Patient requires min assist for bed mobility and for transfers with FWW. Patient able to ambulate 70 ft with FWW and min assist, verbal cues for safety and posture. Patient will benefit from skilled inpatient PT intervention to address strength, balance and safety for improved level of independence with functional mobility. Recommend discharge to SNF for short term rehab vs home with home PT and caregiver assistance once medically cleared by MD. Patient has FWW and 4 wheeled walker at home, further DME needs to be determined. Addendum: 07/27/19 at 1308 by AAMIR HAWKINS PT Amended: Links added.
[2019-07-27 12:00] VITALS: BP 120/79
[2019-07-27] MEDS: HYDROcodone/Acetamin 10/325 tab ORAL PRN ×3 (12:13→21:48)
[2019-07-27] MEDS ORDERED: HYDROcodone/Acetamin 5/325 tab ORAL PRN ×2 (13:15→20:30)
--- NOTE | 2019-07-27 13:18 | NUR ---
CASE MANAGEMENT:REVIEW 64 YR OLD FEMALE BIBA FROM HOME CC: SEIZURE SI: UNCONTROLLED SEIZURE. COCAINE ABUSE. S/P STROKE. UTI 98.2 95 18 111/78 99% ON RA NA-126 CR+1.6 URINE(+) COCAINE IS: IV KEPPRA 1L NS BOLUS CT HEAD SEIZURE PRECAUTIONS BLOOD CX : TO TELEMETRY PLAN: PT EVAL
--- NOTE | 2019-07-27 13:33 | NUR ---
RD ASSESSMENT & RECOMMENDATIONS SEE CARE ACTIVITY FOR COMPLETE ASSESSMENT DAILY ESTIMATED NEEDS: Needs based on Cardiac 54.5kg 25-30 kcals/kg 9463-4330 total kcals 1-1.2 g protein/kg 55-65 g total protein 25-30 mL/kg 1727-0230 total fluid mLs NUTRITION DIAGNOSIS: * Decreased sodium needs R/T cardiac history as evidenced by h/o CVA, BP elevated. CURRENT DIET: CCHO MED/ Soft easy chew PO DIET RECOMMENDATIONS: Rec Low Na / CCHO LOW diet / soft easy chew ADDITIONAL RECOMMENDATIONS: * Calibrated bedscale wt EMR wt 110# vs Bed wt 120# * Monitor BG/ POC wnl. Continue to encourage >75% po intake * Low Na, rec repletion or fluid restriction * Monitor po intake, need for snacks and/or supplements
[2019-07-27 16:00] VITALS: BP 124/76
[2019-07-27] MEDS: Montelukast 10mg tablet ORAL SCH ×2 (16:30→18:09)
--- NOTE | 2019-07-27 16:30 | Progress Note ---
DATE: 07/27/2019 SUBJECTIVE: This is an elderly female who came with status epilepticus and recurrent seizure. The patient is currently complaining pain on the back, asking [employer]. She physically looks okay and no seizure since last night. Waiting for neuro consult. OBJECTIVE: VITAL SIGNS: Blood pressure is 122/71, pulse 93, respirations 16, temperature 98.1. HEENT: AT/NC. EOMI. PERRLA. NECK: Supple. No JVD. CHEST: Bilaterally clear. CARDIOVASCULAR: Regular rhythm. ABDOMEN: Soft. Positive bowel sounds. Nontender. EXTREMITIES: CCE. NEUROLOGICAL: Generalized weakness. Bedbound. LABORATORY DATA: Unremarkable. ASSESSMENT: 1. Status epilepticus. 2. Chronic pain. 3. Depression. 4. Agitation. PLAN: 1. Consider psych consult. 2. Also waiting for neuro consult. 3. Continue current medical treatment. Blaze Boland M.D. DR: YOLANDA JOB#: [id number] CC:
--- NOTE | 2019-07-27 19:09 | NUR ---
HAND-OFF: Report given to Radha HAMEED.Pt remains stable.
--- NOTE | 2019-07-27 19:10 | NUR ---
NURSE NOTES: Received report from YOSEPH Mccoy. Patient is awake, lying in semi tai's; resting comfortably. A/Ox4. Denies pain at this time. No signs of acute distress noted. Checked IV site and flushed. No erythema, bleeding or infiltration noted. Bed at lowest position, brakes on, siderailsx3. On padded siderails for seizure precaution. Call light within reach. Will continue to monitor.
[2019-07-27 20:00] VITALS: BP 118/81
--- NOTE | 2019-07-27 20:00 | NUR ---
TRANSFER TO FLOOR: Patient transferred to [address] [place] [address] via hospital bed accompanied by 2 staff member, without any incident. No signs of acute distress noted. Report given to YOSEPH Gaytan. Belongings and medications given to YOSEPH Gaytan. Family and or S/O informed of transfer. Addendum: 07/27/19 at 2053 by Radha Poe RN Notified Haylie Adrian (daughter) of patient's transfer.
[2019-07-27] MEDS ORDERED: LORazepam Inj 2mg/ml 1ml IV PRN (20:30)
[2019-07-27] MEDS: Methocarbamol 750mg tab ORAL SCH (21:47)
[2019-07-28] VITALS: BP 132/70
--- NOTE | 2019-07-28 | NUR ---
NURSE NOTES: Pt came to the unit on stable condition. report received from cj HAMEED. Pt is AOX4, verbally responsive. On room air, no acute distress noted. Denies pain at this time. Belonging list verified and at bedside. Fall precaution, aspiration precaution and seizure precautions are in place. bed in low and locked position. call light within reach. Will continue to monitor the pt.
[2019-07-28 04:00] VITALS: BP 140/60
[2019-07-28] MEDS: HYDROcodone/Acetamin 10/325 tab ORAL PRN ×3 (05:32→17:50)
--- NOTE | 2019-07-28 06:20 | NUR ---
NURSE NOTES: Called and left message to Dr Boland regarding Na 126 and awaiting for call back.
[2019-07-28] MEDS: NovoLOG Insulin Flexpen SUBQ SCH ×4 (06:30→21:00)
--- NOTE | 2019-07-28 07:36 | NUR ---
HAND-OFF: Report given to YOSEPH Valdez.
--- NOTE | 2019-07-28 07:45 | NUR ---
NURSE NOTES: Received report from YOSEPH Dukes. Patient is awake, alert and orientedx4, able to verbalize needs in bed lying. had breakfast. resting comfortably. Denies pain at this time. No signs of acute resp distress noted. IV site patent and intact. No erythema, bleeding or infiltration noted. Bed at lowest position, brakes on, siderails are up x3. On padded siderails for seizure precaution. Call light within reach. Will continue to monitor.
[2019-07-28 08:00] VITALS: BP 107/73
--- NOTE | 2019-07-28 10:14 | NUR ---
NURSE NOTES: called Dr Matos for consultation per Dr. Boland. will cont the plan of care. Addendum: 07/28/19 at 1017 by JUSTINA MURPHY LVN nicko Mai.
--- NOTE | 2019-07-28 10:20 | NUR ---
NURSE NOTES: spoke with Sofiya Sanchez's office.
[2019-07-28 11:48] VITALS: BP 128/88
--- NOTE | 2019-07-28 15:00 | Progress Note ---
DATE: 07/28/2019 SUBJECTIVE: This is elderly male who came with seizure. The patient is physically doing better. OBJECTIVE: VITAL SIGNS: Blood pressure 107/73, pulse 79, no fever. CHEST: Bilaterally clear. CARDIOVASCULAR: Regular rhythm. ABDOMEN: Soft. EXTREMITIES: CCE. ASSESSMENT: 1. Acute COPD. 2. Seizure. 3. Hypertension. PLAN: Waiting for Neurology consult. Continue current treatment. Blaze Boland M.D. DR: YOLANDA JOB#: [id number] CC:
--- NOTE | 2019-07-28 15:58 | NUR ---
CASE MANAGEMENT:REVIEW SI;ACUTE COPD. SEIZURE ACTIVITY. HTN. 98.1 83 18 140/60 95% ON RA IS;GABAPENTIN PO QD LAMOTRIGINE PO BID KEPPRA PO Q12 HRS ROBAXIN PO QHS ATIVAN IV Q6 HRS PRN SINGULAIR PO QPM MED SURG STATUS DCP;FROM HOME
[2019-07-28 16:00] VITALS: BP 134/80
[2019-07-28] MEDS: Montelukast 10mg tablet ORAL SCH (17:22)
--- NOTE | 2019-07-28 18:52 | NUR ---
HAND-OFF: Report given to Roseline.
--- NOTE | 2019-07-28 19:36 | NUR ---
NURSE NOTES: Pt is in bed AOX4 and verbally responsive. On room air, no acute distress noted. Denies pain at this time. No c/o N/V at this time. IV patent and running IV fluid. Bed in low and locked position. call light within reach. Will continue to monitor the pt. Addendum: 07/28/19 at 1938 by Lucila Ambrose RN Disregard above documentation, incorrect documentation
--- NOTE | 2019-07-28 19:38 | NUR ---
NURSE NOTES: Pt is in bed AOX4 and verbally responsive. On room air, no acute distress noted. Denies pain at this time. No c/o N/V at this time. IV patent and asymptomatic. Bed in low and locked position. call light within reach. Will continue to monitor the pt.
[2019-07-28 20:00] VITALS: BP 142/84
[2019-07-28] MEDS: Methocarbamol 750mg tab ORAL SCH (20:30)
[2019-07-29] VITALS: BP 134/74
--- NOTE | 2019-07-29 00:15 | Consultation ---
DATE OF CONSULTATION: 07/28/2019 NEUROLOGIC CONSULTATION CONSULTING PHYSICIAN: Cheikh Sanchez M.D. CHIEF COMPLAINT: This is one of several [facility] admissions for this 64-year-old, probably right-handed female with a previous history of hypertension, dehydration, left middle cerebral artery stroke, thalamic strokes bilaterally, and admitted here previously for seizures with a seizure disorder. 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 The patient has had multiple admissions. See the old chart back to December 2013. The patient had a stroke, which she states happened about at least 10 years ago with right-sided weakness and sensory problems. The patient was on 17 home medications including lamotrigine 25 mg tablets b.i.d., Keppra 500 mg q.12 h., quinapril, omeprazole, nitrofurantoin, Singulair 10 mg, ferrous sulfate, amlodipine, albuterol sulfate, acetaminophen, and hydrocodone. The patient on 07/26/[address] scan of the brain, which revealed a large old left middle cerebral artery distribution infarction and chronic lacunar infarcts. The chest x-ray basically revealed a tortuous and calcified aorta and surgical clips in the left upper quadrant abdomen. Laboratory studies revealed mild urinary tract infection with +3 protein, +2 blood, 5 to 10 wbc's, and few bacteria. CBC revealed that she was anemic with a platelet count of 538,000 and white count was normal. Chemistries revealed a sodium of 126, glucose of 107, and calcium of 10.6. She has slightly elevated alkaline phosphatase and total protein and decreased chloride. Urine toxicology was positive for benzodiazepines and cocaine. The patient's EKG revealed sinus tachycardia with biatrial enlargement and left ventricular hypertrophy. The patient was given Keppra 750 mg q.12 h., lorazepam 2 mg IV p.r.n. seizures, Singulair, lamotrigine 50 mg b.i.d., gabapentin 600 mg daily, ferrous sulfate, IV fluids, amlodipine, hydrocodone, acetaminophen, and insulin sliding scale. I was asked to see the patient because of her seizures. The patient basically cannot describe her seizures to me. She does have occasional headaches. She states her memory is somewhat impaired. There is no loss of smell or taste. She denies any hearing loss, tinnitus, dizzy spells, or diplopia. She has decreased visual acuity in the right eye from her first stroke. The patient has right-sided weakness and sensory loss on the right side of the body. She walks with a walker. There is no dysarthria or dysphagia. There is no loss of bowel or bladder function. There is no family history of neurologic disease. PAST MEDICAL HISTORY/PAST MEDICAL ILLNESSES: 1. Hypertension. 2. Left MCA stroke, see above. 3. Hypercalcemia with dehydration. 4. Malnutrition. 5. Probable iron deficiency anemia. 6. COPD with a [id number]-[id number] history of smoking. HABITS: She denies any alcohol at this time. She denies any illegal drugs. SOCIAL HISTORY: She is and has two children in good health. ALLERGIES: No known allergies. PAST SURGICAL HISTORY: She had what sounds like an umbilical hernioplasty. Denies other surgeries. REVIEW OF SYSTEMS: Her appetite is fair to good. Weight is stable. PHYSICAL EXAMINATION: VITAL SIGNS: Her temperature is 98.3 degrees, pulse is 75 and regular, respiration rate is 18, and blood pressure is 134/80. HEENT: Examination of her head reveals poor dentition. NECK: Her neck is supple laterally and some stiffness anteriorly and posteriorly. Carotids are +2 without any bruits. LUNGS: Reveal decreased breath sounds bilaterally. CARDIOVASCULAR: PMI was not felt. JVP not visualized. The patient had a normal S1. S2 is physiologically split. There is no S3, S4, murmurs, or rubs appreciated. ABDOMEN: Bowel sounds are intact. The abdomen is nearly scaphoid. There is diffuse tenderness. No organomegaly. BACK: There is no tenderness to percussion. EXTREMITIES: Flexion deformities of her fingers of her right hand, passively straight that out. Extremities are intact. NEUROLOGIC: MENTAL STATUS: She is alert and awake. Judgment could not be tested. Affect was appropriate. Her mood was slightly irritable. Memory, past memory is intact to her date of 1955. Immediate recall 3/3 objects. Recent recall is 0/3 objects at 5 minutes. Intellect, similarities are concrete and cat and dog "not the same." CRANIAL NERVE EXAMINATION: CRANIAL NERVE II: There is a right central scotoma extending to the lateral temporal field. Medially, there was some vision to handshaking. There was no inferior pupillary defect. CRANIAL NERVES III, IV, AND : Extraocular motility was full. Pupils are approximately 5 mm, round, and reactive to light. CRANIAL NERVE V: Facial sensation was decreased in the right first, second, and third divisions of the fifth cranial nerves to fine touch. CRANIAL NERVE VII: Facial strength appeared to be pretty much symmetrical bilaterally. CRANIAL NERVE VIII: Auditory acuity was intact to whisper. CRANIAL NERVES IX AND X: Gag was intact bilaterally. CRANIAL NERVE XI: Sternocleidomastoid strength is 5/5. CRANIAL NERVE XII: Tongue protrudes in the midline without fasciculations or atrophy. MUSCULOSKELETAL: Muscle bulk is symmetrically decreased. There is normal to decrease in the right upper and right lower extremity strength and is 4/5 in the right upper extremity, 4+/5 in the right lower extremity, and 5/5 on the left side. Reflexes are +2 in the right upper extremity, +1 in the left upper extremity, +2 right knee, +1 left knee, +1 left ankle, and 0 right ankle with an upgoing toe on the right side on testing for Babinski response. COORDINATION: Ipxfbx-ga-ldua revealed an endpoints tremor and some mild dysmetria bilaterally, worse on the right side. Solq-na-pqth testing was basically normal given the weakness in the right leg. GAIT AND STATION: Could not be tested. SENSORY: There was decreased pinprick and fine touch in the right upper and right lower extremity and on the right side of the trunk. Proprioception appeared to be normal on the left side and decreased on the right. It moves to the right arm to the elbow and in the right foot. IMPRESSION: This patient has breakthrough seizure disorders, probably focal with secondary generalization due to her strokes. The probable breakthrough may be due to her hyponatremia. The patient also has cocaine metabolite and could be related to cocaine toxicity. She also has a mild urinary tract infection, which can also cause breakthrough seizures. Therefore, her urinary tract infection should be treated. I would increase her Keppra as we are doing and keep her on Lamictal 50 mg b.i.d. An EEG can be obtained. The patient's stroke involved mainly in territory of the left middle cerebral artery. PLAN: 1. Keppra 750 mg p.o. b.i.d. 2. EEG, awake and asleep. 3. Correct hyponatremia. Keep serum sodium at least above 135. Thank you for this interesting case. Cheikh Sanchez MD DR: TAQUERIA JOB#: [id number] CC:
[2019-07-29 04:00] VITALS: BP 119/76
[2019-07-29] MEDS: HYDROcodone/Acetamin 10/325 tab ORAL PRN ×3 (05:50→20:14)
[2019-07-29] MEDS: NovoLOG Insulin Flexpen SUBQ SCH ×4 (06:30→20:51)
--- NOTE | 2019-07-29 07:09 | NUR ---
HAND-OFF: Report given to MICHAEL Valdez.
--- NOTE | 2019-07-29 07:14 | NUR ---
NURSE NOTES: Received report from YOSEPH Dukes. Patient is awake, alert and orientedx4, able to verbalize needs. had breakfast. resting comfortably. Denies pain at this time. No signs of acute resp distress noted. IV site patent and intact. Bed at lowest position, brakes on, siderails are up x3. On padded siderails for seizure precaution. Call light within reach. Will continue to monitor.
[2019-07-29 08:00] VITALS: BP 119/67
[2019-07-29] MEDS: Albuterol/Ipratropium 3ml neb HHN SCH ×2 (11:56→20:37)
[2019-07-29 12:00] VITALS: BP 132/69
[2019-07-29 16:09] VITALS: BP 107/59
[2019-07-29] MEDS: Montelukast 10mg tablet ORAL SCH (17:08)
--- NOTE | 2019-07-29 19:10 | NUR ---
NURSE NOTES: RECEIVED PATIENT FROM MICHAEL TAYLOR. PATIENT IS AWAKE, AAOX3, ON ROOM AIR, NO ACUTE DISTRESS NOTED. IV IS INTACT AND PATENT. SKIN IS INTACT. BED IS LOCKED AND LOW, BED ALARMS ACTIVE, SIDE RAILS UP X2 AND CALL LIGHT IS WITHIN REACH. WILL CONTINUE TO MONITOR.
[2019-07-29 20:00] VITALS: BP 131/88
--- NOTE | 2019-07-29 20:15 | Progress Note ---
DATE: 07/29/2019 SUBJECTIVE: This is an elderly female, currently in the bed, comfortable, doing better in bed. Pain is controlled. No seizure. Has seen neurologist. OBJECTIVE: VITAL SIGNS: Blood pressure 119/67, pulse 67, temperature 98.2. HEENT: AT/NC. EOMI. ELINOR. NECK: Supple. No JVD. CHEST: Bilaterally clear. CARDIOVASCULAR: Regular rhythm. ABDOMEN: Soft. Positive bowel sounds. Nontender. EXTREMITIES: No edema. GENITOURINARY: Deferred. LABORATORY EXAMINATION: The patient has no to labs. ASSESSMENT: 1. Recurrent seizure. 2. Substance abuse. 3. Depression. 4. Anxiety. 5. Chronic pain. 6. History of CVA. PLAN: We will currently continue current treatment. Continue gabapentin, Norvasc, ferrous sulfate, Keppra. Discharge plan home. cleared by neurologist. Blaze Boland M.D. DR: MINDY JOB#: [id number] CC:
[2019-07-29] MEDS: Methocarbamol 750mg tab ORAL SCH (21:32)
[2019-07-30] VITALS (7 sets, daily range): BP systolic 103–130; BP diastolic 61–87
--- NOTE | 2019-07-30 00:15 | Electroencephalogram ---
DATE OF PROCEDURE: 07/29/2019 REQUESTING PHYSICIAN: Cheikh Sanchez M.D. READING PHYSICIAN: Dave Abdullahi M.D. PROCEDURE PERFORMED: Electroencephalogram. HISTORY: This EEG was performed on a 64-year-old lady with a history of uncontrolled seizures. The purpose of this EEG was to evaluate the patient for ongoing ictal or interictal phenomena. TECHNICAL NOTE: This EEG was performed on a [employer] Digital [employer] Unit with electrodes placed on the scalp according to the International 10-20 system. Bnrlm-[id number] and zhguu-jw-uvq montages were used. The EEG was technically satisfactory and was performed in the awake, drowsy, and sleep states. OBSERVATIONS: In the best awake state, the background activity consisted of 8.5-9 Hz alpha activity over the right hemisphere and 6-7 Hz theta activity over the left hemisphere. Drowsiness was characterized by slowing of the background in the 6-7.5 Hz theta range over the right hemisphere and 4-5 Hz theta with intermixed delta over the left hemisphere. Left centrotemporal polymorphic delta activity was also noted. Stage II sleep was characterized by further slowing of the background in the delta and theta range, the presence of vertex waves, and 12-14 Hz sleep spindles. No epileptiform discharges were seen. IMPRESSION: This is an abnormal EEG characterized by: 1. Slowing of the background in the 6-7 Hz theta range over the left hemisphere in the reportedly awake state. 2. The presence of greater left-sided slowing during drowsiness. 3. The presence of left centrotemporal polymorphic delta activity seen during drowsiness. COMMENT: This study is consistent with: 1. Left hemispheric dysfunction. 2. Left centrotemporal focal dysfunction. Clinical correlation is recommended. Dave Abdullahi M.D., M.S.P.H. Clinical Neurophysiologist DR: JORDEN JOB#: [id number] CAROLYN
[2019-07-30] MEDS: Albuterol/Ipratropium 3ml neb HHN SCH ×4 (01:00→20:43)
[2019-07-30] MEDS: HYDROcodone/Acetamin 10/325 tab ORAL PRN ×4 (01:55→20:59)
[2019-07-30] MEDS: NovoLOG Insulin Flexpen SUBQ SCH ×4 (06:30→21:00)
--- NOTE | 2019-07-30 07:14 | NUR ---
NURSE NOTES: Received report from YOSEPH Fountain. Patient is awake, alert and orientedx4, able to verbalize needs. having breakfast. offered OJ for low BS prior my shift. resting calm and comfortably. Denies pain at this time. No signs of acute resp distress noted. IV site patent and intact. Bed at lowest position, brakes on, siderails are up x3. On padded siderails for seizure precaution. Call light within reach. Will continue to monitor.
--- NOTE | 2019-07-30 07:48 | NUR ---
HAND-OFF: Report given to MICHAEL Valdez.
[2019-07-30] MEDS ORDERED: Vancomycin 1gm/D5W 275ml IVPB ONE ×2 (15:00)
[2019-07-30] MEDS: Montelukast 10mg tablet ORAL SCH (17:11)
--- NOTE | 2019-07-30 19:04 | NUR ---
HAND-OFF: Report given to [facility].
--- NOTE | 2019-07-30 20:06 | NUR ---
NURSE NOTES: RECEIVED PATIENT FROM MICHAEL TAYLOR. PATIENT IS AWAKE, AAOX4, ON ROOM AIR, C/O 7/10 RIGHT ARM PAIN. WILL FOLLOW UP WITH PRN PAIN MEDS. SKIN IS INTACT. NO IV NOTED. WILL START NEW IV. BED IS LOCKED AND LOW, BED ALARMS ACTIVE, SIDE RAILS UP X2 AND PADDED FOR SEIZURE PRECAUTION AND CALL LIGHT IS WITHIN REACH. WILL CONTINUE TO MONITOR.
[2019-07-30] MEDS: Methocarbamol 750mg tab ORAL SCH (22:35)
--- NOTE | 2019-07-30 23:00 | Progress Note ---
DATE: 07/30/2019 SUBJECTIVE: This is an elderly female, currently sitting in the bed, comfortable, improving. Her blood cultures just came back positive for gram-positive cocci. The patient is otherwise asymptomatic. OBJECTIVE: VITAL SIGNS: Stable. CHEST: Bilaterally clear. CARDIOVASCULAR: Regular rhythm. No gallop. No murmur. ABDOMEN: Soft. EXTREMITIES: CCE. ASSESSMENT: 1. Gram-positive bacteremia. 2. Seizure. 3. Hypertension. 4. Substance abuse. PLAN: The patient is currently on Rocephin. Continue antibiotic. Continue Keppra. Consider ID consult. Blaze Boland M.D. DR: ELIA JOB#: [id number] CC:
--- NOTE | 2019-07-30 23:00 | NUR ---
NURSE NOTES: INSERTED NEW 24G IV ON RIGHT WRIST. INTACT AND PATENT.
[2019-07-31] VITALS: BP 96/57
[2019-07-31] MEDS: Albuterol/Ipratropium 3ml neb HHN SCH ×4 (00:52→19:00)
[2019-07-31] MEDS: HYDROcodone/Acetamin 10/325 tab ORAL PRN ×4 (03:08→22:21)
[2019-07-31 04:00] VITALS: BP 105/60
[2019-07-31] MEDS: NovoLOG Insulin Flexpen SUBQ SCH ×4 (06:30→20:23)
[2019-07-31 08:00] VITALS: BP 131/71
--- NOTE | 2019-07-31 08:07 | NUR ---
HAND-OFF: Report given to YOSEPH SHAH.
[2019-07-31] MEDS ORDERED: Vancomycin 750mg/NS 275ml IVPB ONE ×2 (10:00)
[2019-07-31 12:00] VITALS: BP 130/73
--- NOTE | 2019-07-31 14:00 | Consultation ---
DATE OF CONSULTATION: 07/31/2019 INFECTIOUS DISEASES CONSULTATION CONSULTING PHYSICIAN: Linda Viens M.D. REFERRING PHYSICIAN: Blaze Boland M.D. REASON FOR CONSULTATION: Bacteremia. 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 She was found to be bacteremic and an Infectious Diseases consultation has been obtained for antibiotics. PAST MEDICAL HISTORY: 1. History of hypertension. 2. History of seizures. 3. Renal failure. 4. Anxiety. 5. Depression. SOCIAL HISTORY: She is a smoker. She does not drink alcohol or use drugs. FAMILY HISTORY: Noncontributory. REVIEW OF SYSTEMS: RESPIRATORY: No fever, chills, cough, or chest pain. Mild shortness of breath. CARDIAC: No chest pain. No palpitation. No dizziness. No syncope. GASTROINTESTINAL: No nausea. No vomiting. No abdominal pain. No diarrhea. MEDICATIONS: As an inpatient, the patient is on IV vancomycin, albuterol, ipratropium, montelukast, gabapentin, amlodipine, ferrous sulfate, lamotrigine, Keppra, Robaxin, [place], and lorazepam. ALLERGIES: No known drug allergies. PHYSICAL EXAMINATION: VITAL SIGNS: Temperature of 98, T-max of 98.7, pulse of 85, respiratory rate 20, blood pressure 131/71, O2 saturation of 94%. HEENT: Pupils equally reactive to light and accommodation. Mouth appears clean without thrush. NECK: Supple. No adenopathy. No JVD. CARDIOVASCULAR: Regular rate and rhythm. No murmurs. LUNGS: Clear to auscultation bilaterally. No crackles. No wheezes. ABDOMEN: Soft, nontender. No organomegaly. EXTREMITIES: No cyanosis, no clubbing, no edema. LABORATORY AND DIAGNOSTIC DATA: White count 10.4, hemoglobin 11.7, hematocrit 34.8, MCV 84, platelet count of 538, neutrophils of 62%. Sodium 126, potassium 3.6, chloride 90, bicarb 22, BUN 12, creatinine 1.6, glucose 107, calcium 10.6. Total bilirubin 0.4. AST 13, ALT 17, alkaline phosphatase 147. CK of 104, troponin 0. Total protein 8.7, albumin 4.3. UA showing 5 to 10 white cells. Blood culture showing gram-positive cocci. Chest x-ray, no acute process. CT head showing negative for bleed or mass effect. 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 Multiple other old infarcts, chronic age-related changes. ASSESSMENT: This is a 64-year-old lady with history of seizures, hypertension, anxiety, depression, who comes in with recurrent seizure and was found to have. 1. Gram-positive bacteremia. 2. Hypertension. 3. Renal failure. 4. Seizures. PLAN: 1. Continue IV vancomycin for now. 2. We will follow up cultures and adjust antibiotics accordingly. I would like to thank, Dr. Boland for this consultation. Linda Vines M.D. DR: KADEEM JOB#: [id number] CC: Blaze Boland M.D.; Fax#: [phone]
--- NOTE | 2019-07-31 15:25 | NUR ---
P.T. NOTES S/P: APPROACHED PATIENT'S ROOM IN THE PM. PATIENT FOUND LYING IN A SEMI-RIDLEY'S POSITION IN BED UPON ARRIVAL. PATIENT REFUSED P.T. TX. TODAY. RN AWARE OF PATIENT'S STATUS. PATIENT ADDED, THAT SHE'LL TRY TOMORROW. WILL F/U NEXT TX. TIME AND CONT WITH P.T. PLAN. RSABADO.
[2019-07-31] MEDS: Montelukast 10mg tablet ORAL SCH (15:34)
[2019-07-31 16:00] VITALS: BP 128/81
--- NOTE | 2019-07-31 19:30 | NUR ---
HAND-OFF: Report given to YOSEPH Marti.
[2019-07-31 20:00] VITALS: BP 118/63
[2019-07-31] MEDS: Methocarbamol 750mg tab ORAL SCH (20:54)
--- NOTE | 2019-07-31 21:00 | NUR ---
NURSE NOTES: Inserted new IV left forearm 18 gauge
[2019-08-01] VITALS: BP 120/75
[2019-08-01] MEDS: Albuterol/Ipratropium 3ml neb HHN SCH ×4 (01:00→12:38)
--- NOTE | 2019-08-01 02:15 | Progress Note ---
DATE: 07/31/2019 SUBJECTIVE: This is an elderly female, currently in bed, comfortable. Blood cultures are positive. The patient is otherwise asymptomatic. PHYSICAL EXAMINATION: VITAL SIGNS: Blood pressure , pulse 72, no fever. CHEST: Bilaterally clear. CARDIOVASCULAR: Regular rhythm. ABDOMEN: Soft. EXTREMITIES: CCE. LABORATORY AND DIAGNOSTIC DATA: Toxicology screen is positive for benzos and cocaine. Blood culture, gram-positive cocci. ASSESSMENT: 1. Gram-positive cocci bacteremia. 2. Seizure. 3. Hypertension. PLAN: 1. We will currently continue current medical treatment 2. Continue PT and OT. 3. Discussed with the patient. 4. Continue vancomycin dose per pharmacy. Blaze Boland M.D. DR: Angel JOB#: [id number] CC:
[2019-08-01 04:00] VITALS: BP 121/67
[2019-08-01] MEDS: NovoLOG Insulin Flexpen SUBQ SCH ×4 (06:30→20:33)
--- NOTE | 2019-08-01 07:20 | NUR ---
HAND-OFF: Report given to Kiara Singer.
[2019-08-01 08:00] VITALS: BP 131/69
--- NOTE | 2019-08-01 08:28 | NUR ---
NURSE NOTES: Patient awake and alert and oriented,respirations unlabored,patient ate breakfast,assist to bedside commode,voiding and patient had BM.Skin care given.Bed alarm on,call light within reach.
[2019-08-01 08:33] LABS: BASOPHILS % (AUTO) 1.1 % (0.0-2.0); EOSINOPHILS % (AUTO) 3.9 % (0.0-3.0); HEMATOCRIT 30.2 % (37.0-47.0); LYMPHOCYTES % (AUTO) 25.5 % (20.0-45.0); MEAN CORPUSCULAR VOLUME 86 FL (80-99); MONOCYTES % (AUTO) 4.8 % (1.0-10.0); NEUTROPHILS % (AUTO) 64.7 % (45.0-75.0); PLATELET COUNT 477 K/UL (150-450); RED BLOOD COUNT 3.52 M/UL (4.20-5.40); RED CELL DISTRIBUTION WIDTH 12.2 % (11.6-14.8); WHITE BLOOD COUNT 12.2 K/UL (4.8-10.8)
[2019-08-01 08:52] LABS: ANION GAP 12 mmol/L (5-15); BLOOD UREA NITROGEN 22 mg/dL (7-18); CALCIUM 10.9 MG/DL (8.5-10.1); CARBON DIOXIDE 24 MMOL/L (21-32); CHLORIDE 103 MMOL/L (98-107); CREATININE 1.4 MG/DL (0.55-1.30); POTASSIUM 4.3 MMOL/L (3.5-5.1); SODIUM 139 MMOL/L (136-145)
[2019-08-01] MEDS ORDERED: Vancomycin 500mg/D5W 110ml IVPB SCH ×2 (10:00)
[2019-08-01] MEDS: HYDROcodone/Acetamin 10/325 tab ORAL PRN ×2 (10:18→16:54)
--- NOTE | 2019-08-01 10:49 | Infectious Diseases Prog Note ---
Assessment/Plan Assessment/Plan A; 1. Positive blood culture, likely contamination 2. Hypertension. 3. Renal failure. 4. Seizures. 5. Cocaine abuse 6. COPD PLAN: 1. Discontinue IV vancomycin Subjective ROS Limited/Unobtainable: No Constitutional: Reports: no symptoms Respiratory: Reports: no symptoms Gastrointestinal/Abdominal: Reports: no symptoms Genitourinary: Reports: no symptoms Musculoskeletal: Reports: pain Allergies: Coded Allergies: No Known Allergies (Unverified , 09/12/12) Objective Vital Signs Last 24 Hour Vital Signs Date Time Temp Pulse Resp B/P (MAP) Pulse Ox O2 Delivery O2 Flow Rate FiO2 08/01/19 09:39 69 121/77 08/01/19 08:52 74 18 95 Room Air 21 70 18 92 08/01/19 07:52 72 18 99 08/01/19 04:00 98.3 78 18 121/67 (85) 98 08/01/19 01:08 74 18 95 Room Air 21 70 18 92 08/01/19 00:00 98.5 68 18 120/75 (90) 98 07/31/19 22:51 98.0 07/31/19 22:16 Room Air 07/31/19 20:00 98.4 67 20 118/63 (81) 98 07/31/19 16:00 97.8 67 20 128/81 (97) 98 07/31/19 13:55 72 20 99 Room Air 21 68 20 97 07/31/19 12:00 98.2 78 19 130/73 (92) 97 Height (Feet): 5 Height (Inches): 5.00 Weight (Pounds): 100 HEENT: mucous membranes moist Respiratory/Chest: lungs clear Cardiovascular: normal rate Abdomen: soft, non tender Extremities: no edema Neurologic/Psychiatric: alert, oriented x 3, responsive Laboratory Tests Test 08/01/19 07:50 White Blood Count 12.2 K/UL (4.8-10.8) H Red Blood Count 3.52 M/UL (4.20-5.40) L Hemoglobin 10.0 G/DL (12.0-16.0) L Hematocrit 30.2 % (37.0-47.0) L Mean Corpuscular Volume 86 FL (80-99) Mean Corpuscular Hemoglobin 28.3 PG (27.0-31.0) Mean Corpuscular Hemoglobin Concent 33.0 G/DL (32.0-36.0) Red Cell Distribution Width 12.2 % (11.6-14.8) Platelet Count 477 K/UL (150-450) H Mean Platelet Volume 4.9 FL (6.5-10.1) L Neutrophils (%) (Auto) 64.7 % (45.0-75.0) Lymphocytes (%) (Auto) 25.5 % (20.0-45.0) Monocytes (%) (Auto) 4.8 % (1.0-10.0) Eosinophils (%) (Auto) 3.9 % (0.0-3.0) H Basophils (%) (Auto) 1.1 % (0.0-2.0) Sodium Level 139 MMOL/L (136-145) Potassium Level 4.3 MMOL/L (3.5-5.1) Chloride Level 103 MMOL/L (98-107) Carbon Dioxide Level 24 MMOL/L (21-32) Anion Gap 12 mmol/L (5-15) Blood Urea Nitrogen 22 mg/dL (7-18) H Creatinine 1.4 MG/DL (0.55-1.30) H Estimat Glomerular Filtration Rate 46.1 mL/min (>60) Glucose Level 105 MG/DL (74-106) Calcium Level 10.9 MG/DL (8.5-10.1) H Random Vancomycin Level 10.0 ug/mL Current Medications Medications (Trade) Dose Ordered Sig/Martha Route PRN Reason Start Time Stop Time Status Last Admin Dose Admin Acetaminophen/ Hydrocodone Bitart ([place] 10/325) 1 tab Q6H PRN ORAL Severe Pain (Pain Scale 7-10) 07/27/19 20:30 08/03/19 20:29 08/01/19 10:18 Acetaminophen/ Hydrocodone Bitart ([place] 5/325) 1 tab Q6H PRN ORAL Moderate Breakthru Pain (5-7) 07/27/19 20:30 08/03/19 20:29 Albuterol/ Ipratropium (Albuterol/ Ipratropium) 3 ml Q6HRT HHN 07/29/19 13:00 08/03/19 12:59 08/01/19 02:39 Amlodipine Besylate (Norvasc) 5 mg DAILY ORAL 07/28/19 09:00 08/26/19 08:59 08/01/19 09:39 Dextrose (Dextrose 50%) 25 ml Q30M PRN IV Hypoglycemia 07/27/19 20:30 08/25/19 14:29 Dextrose (Dextrose 50%) 50 ml Q30M PRN IV Hypoglycemia 07/27/19 20:30 08/25/19 14:29 Ferrous Sulfate (Feosol) 325 mg DAILY ORAL 07/28/19 09:00 08/26/19 08:59 08/01/19 09:38 Gabapentin (Neurontin) 600 mg DAILY ORAL 07/28/19 13:00 08/27/19 12:59 08/01/19 09:38 Insulin Aspart (NovoLOG) BEFORE MEALS AND HS SUBQ 07/27/19 21:00 08/25/19 16:29 Lamotrigine (LaMICtal) 50 mg BID ORAL 07/28/19 09:00 08/25/19 17:59 08/01/19 09:38 Levetiracetam (Keppra) 750 mg Q12HR ORAL 07/27/19 21:00 08/25/19 20:59 08/01/19 09:38 Lorazepam (Ativan 2mg/ml 1ml) 2 mg Q6H PRN IV For Seizures 07/27/19 20:30 08/03/19 20:29 Methocarbamol (Robaxin) 750 mg QHS ORAL 07/27/19 21:00 08/25/19 20:59 07/31/19 20:54 Montelukast Sodium (Singulair) 10 mg QPM ORAL 07/28/19 16:30 08/25/19 16:29 07/31/19 15:34 Vancomycin HCl (Vanco rx to dose) 1 ea DAILY PRN MISC Per rx protocol 07/30/19 13:45 08/29/19 13:44 Vancomycin HCl 500 mg/Dextrose 110 ml @ 110 mls/hr Q24H IVPB 08/01/19 10:00 08/06/19 09:59 Mickey Kaur MD Aug 01, 2019 10:49
[2019-08-01 12:00] VITALS: BP 138/75
--- NOTE | 2019-08-01 14:40 | NUR ---
RD ASSESSMENT & RECOMMENDATIONS SEE CARE ACTIVITY FOR COMPLETE ASSESSMENT DAILY ESTIMATED NEEDS: Needs based on Cardiac 54.5kg 25-30 kcals/kg 2067-9977 total kcals 1-1.2 g protein/kg 55-65 g total protein 25-30 mL/kg 4175-2758 total fluid mLs NUTRITION DIAGNOSIS: * Decreased sodium needs R/T cardiac history as evidenced by h/o CVA, BP elevated. CURRENT DIET: CCHO MED/ Soft easy chew PO DIET RECOMMENDATIONS: Rec Low Na / soft easy chew ADDITIONAL RECOMMENDATIONS: * Calibrated bedscale wt EMR wt 110# vs Bed wt 120# * Monitor BG/ POC wnl. Continue to encourage >75% po intake * Low Na, rec repletion or fluid restriction * Monitor po intake, need for snacks and/or supplements -> will add snacks in b/w meals to prevent hypoglycemia POC's are 80-100, w/ 63 noted this morning
[2019-08-01 16:00] VITALS: BP 117/68
--- NOTE | 2019-08-01 16:14 | NUR ---
*-* DISCHARGE PLANNING *-* PATIENT HAS BEEN REFERRED TO: [email or web address] [phone] Work [phone] Work Work Fax Addendum: 08/01/19 at 1704 by ATTILA RECINOS CM [facility] will follow patient
[2019-08-01] MEDS: Montelukast 10mg tablet ORAL SCH (16:53)
--- NOTE | 2019-08-01 18:00 | NUR ---
NURSE NOTES: Patient resting,call light within reac,bed alarm is on.
--- NOTE | 2019-08-01 19:31 | NUR ---
NURSE NOTES: Contacted Dr Boland regarding patient's preferred breathing treatment, awaiting response.
--- NOTE | 2019-08-01 19:34 | NUR ---
HAND-OFF: Report given to Jess HAMEED.
[2019-08-01 20:00] VITALS: BP 135/84
[2019-08-01] MEDS: Methocarbamol 750mg tab ORAL SCH (20:32)
--- NOTE | 2019-08-01 21:00 | NUR ---
NURSE NOTES: Dr Boland changed patient's breathing treatment to MDI. RT aware.
--- NOTE | 2019-08-01 21:45 | Progress Note ---
DATE: 08/01/2019 SUBJECTIVE: This is an elderly female, currently comfortable in the bed, no distress. The patient complains some cough, need bronchodilator treatment. PHYSICAL EXAMINATION: VITAL SIGNS: Blood pressure is stable. CHEST: Bilaterally clear. CARDIOVASCULAR: Regular rhythm. ABDOMEN: Soft. EXTREMITIES: CCE. ASSESSMENT: 1. Bacteremia. 2. Seizure. 3. Hypertension. 4. Substance abuse. PLAN: 1. Continue current treatment. 2. Continue antibiotic. 3. Discharge plan. Blaze Boland M.D. DR: Angel JOB#: [id number] CC:
[2019-08-01] MEDS: Albuterol 90mcg Inhaler 8gm INH SCH (22:40)
[2019-08-02] VITALS: BP 110/54
[2019-08-02] MEDS: HYDROcodone/Acetamin 10/325 tab ORAL PRN ×2 (01:08→08:31)
[2019-08-02] MEDS: Albuterol 90mcg Inhaler 8gm INH SCH ×3 (03:00→11:06)
[2019-08-02 04:00] VITALS: BP 103/57
[2019-08-02] MEDS: NovoLOG Insulin Flexpen SUBQ SCH ×2 (06:29→11:30)
--- NOTE | 2019-08-02 07:18 | NUR ---
HAND-OFF: Report given to YOSEPH Valdez.
--- NOTE | 2019-08-02 07:40 | NUR ---
NURSE NOTES: Received report from YOSEPH Hunter. Patient is awake, alert and orientedx4, able to verbalize needs. On BSC. had breakfast. Denies pain at this time. No signs of acute resp distress noted. IV site patent and intact. Bed at lowest position, locked and alarm engaged. siderails are up x3. On padded siderails for seizure precaution. Call light within reach. Will continue to monitor.
[2019-08-02 08:00] VITALS: BP_SYST 121; BP_SYST 129; BP_DIAS 51; BP_DIAS 74
[2019-08-02] MEDS ORDERED: SINGULAIR10 MG ORAL (10:43)
[2019-08-02] MEDS ORDERED: NEURONTIN600 MG ORAL (10:44)
[2019-08-02] MEDS ORDERED: NORVASC10 MG ORAL (10:46)
[2019-08-02] MEDS ORDERED: LAMICTAL25 MG ORAL (10:47)
[2019-08-02] MEDS ORDERED: KEPPRA750 MG ORAL (10:48)
[2019-08-02] MEDS ORDERED: ACETAMINOPHEN325 M1 ORAL (10:50)
--- NOTE | 2019-08-02 11:20 | Infectious Diseases Prog Note ---
Assessment/Plan Assessment/Plan A; 1. Positive blood culture, likely contamination 2. Hypertension. 3. Renal failure. 4. Seizures. 5. Cocaine abuse 6. COPD PLAN: 1. observe off antibiotic 2. Agree with discharge Subjective ROS Limited/Unobtainable: No Respiratory: Reports: no symptoms Gastrointestinal/Abdominal: Reports: no symptoms Genitourinary: Reports: no symptoms Musculoskeletal: Reports: pain Allergies: Coded Allergies: No Known Allergies (Unverified , 09/12/12) Objective Vital Signs Last 24 Hour Vital Signs Date Time Temp Pulse Resp B/P (MAP) Pulse Ox O2 Delivery O2 Flow Rate FiO2 08/02/19 09:01 97.7 08/02/19 08:32 63 110/63 08/02/19 08:00 97.5 67 18 129/74 (92) 99 08/02/19 07:49 88 18 100 Room Air 21 08/02/19 07:49 88 18 98 Room Air 21 08/02/19 04:00 97.7 66 18 103/57 (72) 96 08/02/19 03:00 78 16 92 Room Air 21 08/02/19 03:00 78 18 93 Room Air 21 08/02/19 00:00 97.8 72 18 110/54 (72) 96 08/01/19 22:44 75 18 95 Room Air 21 08/01/19 22:44 76 20 96 Room Air 21 08/01/19 22:43 75 18 96 Room Air 21 08/01/19 21:44 Room Air 08/01/19 20:00 98.3 75 18 135/84 (101) 96 08/01/19 16:00 98.5 65 18 117/68 (84) 96 08/01/19 12:39 72 18 99 08/01/19 12:00 97.9 62 18 138/75 (96) 96 Height (Feet): 5 Height (Inches): 5.00 Weight (Pounds): 108 General Appearance: no acute distress HEENT: mucous membranes moist Respiratory/Chest: lungs clear Cardiovascular: normal rate Abdomen: soft, non tender Extremities: no edema Neurologic/Psychiatric: alert, responsive Current Medications Medications (Trade) Dose Ordered Sig/Martha Route PRN Reason Start Time Stop Time Status Last Admin Dose Admin Acetaminophen/ Hydrocodone Bitart ([place] 10/325) 1 tab Q6H PRN ORAL Severe Pain (Pain Scale 7-10) 07/27/19 20:30 08/03/19 20:29 08/02/19 08:31 Acetaminophen/ Hydrocodone Bitart ([place] 5/325) 1 tab Q6H PRN ORAL Moderate Breakthru Pain (5-7) 07/27/19 20:30 08/03/19 20:29 Albuterol Sulfate (Proventil MDI) 2 puff Q4HRT INH 08/01/19 23:00 08/31/19 22:59 08/02/19 07:49 Amlodipine Besylate (Norvasc) 5 mg DAILY ORAL 07/28/19 09:00 08/26/19 08:59 08/01/19 09:39 Dextrose (Dextrose 50%) 25 ml Q30M PRN IV Hypoglycemia 07/27/19 20:30 08/25/19 14:29 Dextrose (Dextrose 50%) 50 ml Q30M PRN IV Hypoglycemia 07/27/19 20:30 08/25/19 14:29 Ferrous Sulfate (Feosol) 325 mg DAILY ORAL 07/28/19 09:00 08/26/19 08:59 08/02/19 08:29 Gabapentin (Neurontin) 600 mg DAILY ORAL 07/28/19 13:00 08/27/19 12:59 08/02/19 08:30 Insulin Aspart (NovoLOG) BEFORE MEALS AND HS SUBQ 07/27/19 21:00 08/25/19 16:29 Lamotrigine (LaMICtal) 50 mg BID ORAL 07/28/19 09:00 08/25/19 17:59 08/02/19 08:29 Levetiracetam (Keppra) 750 mg Q12HR ORAL 07/27/19 21:00 08/25/19 20:59 08/02/19 08:30 Lorazepam (Ativan 2mg/ml 1ml) 2 mg Q6H PRN IV For Seizures 07/27/19 20:30 08/03/19 20:29 Methocarbamol (Robaxin) 750 mg QHS ORAL 07/27/19 21:00 08/25/19 20:59 08/01/19 20:32 Montelukast Sodium (Singulair) 10 mg QPM ORAL 07/28/19 16:30 08/25/19 16:29 08/01/19 16:53 Mickey Kaur MD Aug 02, 2019 11:20
[2019-08-02 12:00] VITALS: BP 159/83
--- NOTE | 2019-08-02 13:04 | NUR ---
NURSE NOTES: discharge with instructions. Rx given. home address verified. removed IV HEPLOCK. called daughter, Haylie and left vm. spoke with the clinic cma, Briana and provided patient a transportation. personal belongings noted. in stable condition. No seizure activity noted. no c/o pain/discomfort.
--- NOTE | 2019-08-02 19:30 | Progress Note ---
DATE: 08/02/2019 SUBJECTIVE: Elderly female came to the emergency room for having altered mental status. The patient noted to have seizure. The patient was admitted on , telemetry bed. Neurology consult was obtained, added Keppra and Dilantin. The patient was also noted at this time blood cultures are positive, given IV antibiotics. Repeated labs are negative. The patient is physically doing better. She is going to go back to home. DISCHARGE DIAGNOSES: 1. Seizure. 2. Altered mental status. 3. CVA. DIET: She is on mechanical soft diet. ACTIVITY: As tolerated. DISCHARGE MEDICATIONS: See the prescription. Blaze Boland M.D. DR: Angel JOB#: [id number] CC:
--- NOTE | 2019-08-03 07:42 | Discharge Summary ---
Discharge Summary Discharge Summary _ DATE OF ADMISSION: 07/26/2019 DATE OF DISCHARGE: 08/02/2019 DISCHARGED BY: Dr. Boland REASON FOR ADMISSION: 64 years old female with past medical history of seizure disorder, cocaine abuse , presented with three seizure episodes. Paramedics gave patient Versed , which stopped seizure. Patient was postictal and unable to provide any history . Laboratory work-up was significant for hyponatremia with sodium 126. BUN 12 , creatinine 1.6. Stable LFT . Troponin negative . No leukocytosis . Urinalysis revealed +3 protein ,pyuria and few bacteria . Urine toxicology screen was positive for cocaine and benzodiazepine . EKG revealed sinus tachycardia , no acute ischemic changes . Chest x-ray revealed no acute cardiopulmonary pathology. CT of the head demonstrated no acute intracranial pathology, multiply old infarcts noted with a large old left middle cerebral artery distribution infarct noted as well. Patient admitted to telemetry for further management CONSULTANTS: neurologist Dr. Sanchez ID specialist Dr. Vines HOSPITAL COURSE: Patient admitted to telemetry floor. Neurologist followed. EEG revealed abnormal results , consistent with a left hemispheric dysfunction and left centrotemporal focal dysfunction. Per neurologist , patient had breakthrough seizure disorder probably focal with secondary generalization due to stroke. The probable breakthrough may be due to her hyponatremia versus cocaine toxicity. Keppra dose was increased to 750 mg twice a day , Lamictal continued. Seizure precaution maintained. Ativan was on board as needed for breakthrough seizures. No further evidence of seizure activity while in the hospital. Blood cultures revealed Staph coagulase negative, likely contaminant as per ID specialist. ID specialist recommended to observe patient off antibiotics. Renal parameters and electrolytes were closely monitored. Creatinine from 1.6 down to 1.4. Patient received IV hydration with normal saline and prior to discharge sodium 139. Blood pressure was managed with calcium channel darline. Blood sugar was managed with sliding scale of insulin. Supportive care provided. Patient was advised on abstinence from illicit street drugs. Patient clinically stabilized and was ready for discharge home . FINAL DIAGNOSES: Breakthrough seizure episode possibly due to hyponatremia versus cocaine toxicity CVA left middle cerebral artery Hyponatremia -resolved Cocaine abuse Altered mental status Hypertension Substance abuse/cocaine Hyponatremia COPD Renal failure DISCHARGE MEDICATIONS: See Medication Reconciliation list. DISCHARGE INSTRUCTIONS: Patient was discharged home. Follow-up with a primary care provider in 1 week. I have been assigned to dictate discharge summary for this account. I was not involved in the patient's management. Maricarmen Palacios NP Aug 03, 2019 07:42
--- NOTE | 2019-08-03 07:56 | CDS Physician Query ---
Clarification is required for compliance, coding accuracy, and to reflect severity of illness for this patient Dear Dr. Blaze Boland M.D. Date: 08/03/2019 [employer] Technician/CDS Name: Eulalio Horne Elderly female came to the emergency room for having altered mental status. The patient noted to have seizure. The patient was admitted on , telemetry bed. Neurology consult was obtained, added Keppra and Dilantin. The patient was also noted at this time blood cultures are positive, given IV antibiotics. Repeated labs are negative. The patient is physically doing better. She is going to go back to home. DISCHARGE DIAGNOSES: 1. Seizure. 2. Altered mental status. 3. CVA. "Altered Mental Status" documented in Progress notes Please indicate the nature and chronicity of the condition below: [] Metabolic Encephalopathy [] Toxic Encephalopathy [] Toxic - Metabolic Encephalopathy [] Encephalopathy, Other [] Dementia with Delirium [] Hypoxic encephalopathy [] Posterior reversible encephalopathy syndrome [] Other: [] Not Applicable Present on Admission: [] Yes [] No [] Clinically Undetermined Physician signature Date Please also document in your Progress Notes and/or Discharge Summary and indicate if the condition was present on admission. MTDD
== END 2019-08-02 13:05 | disposition home or self-care (01) | DRG 100 ==
LOC: EDBD 05:59 → EMR 06:12 → EDBEDREQ 09:27 → 2W 10:06 → 2E 16:08 → 4E 07-27 20:00
DX: G40.901 Epilepsy, unspecified, not intractable, with status epilepticus (principal); G93.41 Metabolic encephalopathy; E87.1 Hypo-osmolality and hyponatremia; I69.351 Hemiplegia and hemiparesis following cerebral infarction affecting right dominant side; N39.0 Urinary tract infection, site not specified; I10 Essential (primary) hypertension; F14.10 Cocaine abuse, uncomplicated; J44.9 Chronic obstructive pulmonary disease, unspecified; N19 Unspecified kidney failure; R00.0 Tachycardia, unspecified; G89.29 Other chronic pain; F32.9 Major depressive disorder, single episode, unspecified; Z87.891 Personal history of nicotine dependence; F41.9 Anxiety disorder, unspecified
CPT/HCPCS: 36415; 70450; 71045; 80048; 80053; 80202; 80299; 80307; 81003; 82550; 82962; 83036; 84484; 85025; 87040; 87181; 93005; 94640; 94664; 95819; 96361; 96374; 99285; G0480; J1815; J7030; J7620

== ENCOUNTER 2019-11-02 11:06 | Emergency (ER) | payer MEDICARE, MEDICAID ==
[~2019-11-02] VITALS: Ht 160 cm; Wt 56.7 kg
[~2019-11-02 11:06] MED LIST changes: +ACETAMINOPHEN325 M1 ORAL; +KEPPRA750 MG ORAL; +NEURONTIN600 MG ORAL; +NORVASC10 MG ORAL; +SINGULAIR10 MG ORAL
[2019-11-02 11:10] VITALS: BP 147/79
[2019-11-02 11:43] LABS: BASOPHILS % (AUTO) 1.2 % (0.0-2.0); EOSINOPHILS % (AUTO) 1.1 % (0.0-3.0); HEMATOCRIT 34.2 % (37.0-47.0); HEMOGLOBIN 11.5 G/DL (12.0-16.0); LYMPHOCYTES % (AUTO) 13.4 % (20.0-45.0); MEAN CORPUSCULAR VOLUME 86 FL (80-99); MONOCYTES % (AUTO) 5.9 % (1.0-10.0); NEUTROPHILS % (AUTO) 78.3 % (45.0-75.0); PLATELET COUNT 441 K/UL (150-450); RED BLOOD COUNT 3.98 M/UL (4.20-5.40); RED CELL DISTRIBUTION WIDTH 11.2 % (11.6-14.8); WHITE BLOOD COUNT 9.6 K/UL (4.8-10.8)
[2019-11-02 12:07] LABS: ANION GAP 9 mmol/L (5-15); BLOOD UREA NITROGEN 8 mg/dL (7-18); CALCIUM 10.6 MG/DL (8.5-10.1); CARBON DIOXIDE 24 MMOL/L (21-32); CHLORIDE 98 MMOL/L (98-107); CREATININE 1.1 MG/DL (0.55-1.30); POTASSIUM 4.3 MMOL/L (3.5-5.1); SODIUM 131 MMOL/L (136-145)
--- NOTE | 2019-11-02 12:08 | Emergency Room Report ---
History of Present Illness General Chief Complaint: Seizure Source: Patient Present Illness HPI Disclaimer: Please note that this report is being documented using [employer] technology. This can lead to erroneous entry secondary to incorrect interpretation by the dictating instrument. HPI: 64-year-old male history of seizure disorder presented after recurrent seizure. She also has a history of crack cocaine abuse. She states she has been compliant with her Keppra which is twice daily. She did take her medicine this morning. She also did smoke crack cocaine this morning and had a generalized tonic-clonic seizure. EMS was called. On arrival patient alert oriented and states she was feeling better. 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 Hx Cerebrovascular Accident: Yes Hx Transient Ischemic Attacks: No Hx Dementia: No Hx Alzheimer's Disease: No Hx Parkinson's Disease: No Hx Meningitis: No Hx Encephalitis: No Hx Seizures: Yes Hx Epilepsy: No Hx Multiple Sclerosis: No Hx Cerebral Palsy: No Hx Amyotrophic Lat Sclerosis: No Hx Guillian-[place] Syndrome: No Hx Paralysis: No Hx Peripheral Neuropathy: No Hx Spinal Cord Injury: No Hx Head Trauma: No Hx Traumatic Brain Injury: No Hx Memory Loss: No Hx Concentration Difficulty: No Hx Speech Problem: No Hx Tremors: No Hx Vertigo: No Hx Dizziness: No Hx Syncope: No Hx Headaches: No Hx Aphasia: No Hx Dysphasia: No Hx Numbness: No Hx Weakness: Yes Hx Fatigue: No Hx Neurologic Surgery: No Hx Brain Shunt: No Review of Systems All Other Systems: negative except mentioned in HPI Physical Exam Vital Signs Date Time Temp Pulse Resp B/P (MAP) Pulse Ox O2 Delivery O2 Flow Rate FiO2 11/02/19 11:02 98.2 92 18 160/100 (120) 98 Sp02 EP Interpretation: reviewed, normal General Appearance: well appearing, no apparent distress Head: normocephalic, atraumatic Eyes: bilateral eye PERRL, bilateral eye EOMI ENT: hearing grossly normal, moist mucus membranes Neck: full range of motion, supple Respiratory: lungs clear, normal breath sounds, no rhonchi, no respiratory distress, no retraction, no wheezing Cardiovascular #1: normal peripheral pulses, regular rate, rhythm, no murmur Gastrointestinal: non tender, soft, non-distended, no guarding 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 She also admits to crack cocaine abuse today. Differential diagnosis included but not limited to breakthrough seizure, substance abuse, less likely process. I believe patient had a breakthrough seizure due to her cocaine abuse this morning. Clinical course-patient placed on the monitor and pulse oximetry, IV fluids given Labs -no significant abnormalities Laboratory Tests Test 11/02/19 11:39 11/02/19 13:10 White Blood Count 9.6 K/UL (4.8-10.8) Red Blood Count 3.98 M/UL (4.20-5.40) L Hemoglobin 11.5 G/DL (12.0-16.0) L Hematocrit 34.2 % (37.0-47.0) L Mean Corpuscular Volume 86 FL (80-99) Mean Corpuscular Hemoglobin 28.9 PG (27.0-31.0) Mean Corpuscular Hemoglobin Concent 33.6 G/DL (32.0-36.0) Red Cell Distribution Width 11.2 % (11.6-14.8) L Platelet Count 441 K/UL (150-450) Mean Platelet Volume 4.5 FL (6.5-10.1) L Neutrophils (%) (Auto) 78.3 % (45.0-75.0) H Lymphocytes (%) (Auto) 13.4 % (20.0-45.0) L Monocytes (%) (Auto) 5.9 % (1.0-10.0) Eosinophils (%) (Auto) 1.1 % (0.0-3.0) Basophils (%) (Auto) 1.2 % (0.0-2.0) Sodium Level 131 MMOL/L (136-145) L Potassium Level 4.3 MMOL/L (3.5-5.1) Chloride Level 98 MMOL/L (98-107) Carbon Dioxide Level 24 MMOL/L (21-32) Anion Gap 9 mmol/L (5-15) Blood Urea Nitrogen 8 mg/dL (7-18) Creatinine 1.1 MG/DL (0.55-1.30) Estimated Glomerular Filtration Rate > 60 mL/min (>60) Glucose Level 87 MG/DL (74-106) Calcium Level 10.6 MG/DL (8.5-10.1) H Total Bilirubin 0.2 MG/DL (0.2-1.0) Aspartate Amino Transferase (AST) 18 U/L (15-37) Alanine Aminotransferase (ALT) 21 U/L (12-78) Alkaline Phosphatase 159 U/L (46-116) H Total Protein 7.7 G/DL (6.4-8.2) Albumin 3.8 G/DL (3.4-5.0) Globulin 3.9 g/dL Albumin/Globulin Ratio 1.0 (1.0-2.7) Urine Color Pale yellow Urine Appearance Clear Urine pH 6.5 (4.5-8.0) Urine Specific [place] 1.005 (1.005-1.035) Urine Protein 3+ (NEGATIVE) H Urine Glucose (UA) Negative (NEGATIVE) Urine Ketones Negative (NEGATIVE) Urine Blood Negative (NEGATIVE) Urine Nitrite Negative (NEGATIVE) Urine Bilirubin Negative (NEGATIVE) Urine Urobilinogen Normal MG/DL (0.0-1.0) Urine Leukocyte Esterase Negative (NEGATIVE) Urine RBC Pending Urine WBC Pending Urine Squamous Epithelial Cells Pending Urine Bacteria Pending Urine Opiates Screen Pending Urine Barbiturates Screen Pending Phencyclidine (PCP) Screen Pending Urine Amphetamines Screen Pending Urine Benzodiazepines Screen Pending Urine Cocaine Screen Pending Urine Marijuana (THC) Screen Pending On reevaluation: Patient in no acute distress alert oriented and declined admission to the hospital Plan-patient did not wish to stay in the hospital for observation so she was discharged home with a refill of her Keppra and instructions to avoid further cocaine abuse. She was given return precautions. Stable for discharge EKG Diagnostic Results Rate: normal Rhythm: NSR ST Segments: no acute changes Rhythm Strip Diag. Results EP Interpretation: yes Rate: 72 Rhythm: NSR, no PVC's Last Vital Signs Date Time Temp Pulse Resp B/P (MAP) Pulse Ox O2 Delivery O2 Flow Rate FiO2 11/02/19 11:02 98.2 92 18 160/100 (120) 98 Status: improved Disposition: HOME, SELF-CARE Condition: Stable Scripts Levetiracetam (KEPPRA) 750 Mg Tablet 750 MG ORAL BID for seizure, #60 TAB Prov: Chance Kamara M.D. 11/02/19 Chance Kamara M.D. November 02, 2019 12:08
[2019-11-02 12:11] LABS: ALANINE AMINOTRANSFERASE 21 U/L (12-78); ALBUMIN 3.8 G/DL (3.4-5.0); ALKALINE PHOSPHATASE 159 U/L (46-116); ASPARTATE AMINO TRANSFERASE 18 U/L (15-37); BILIRUBIN,TOTAL 0.2 MG/DL (0.2-1.0)
[2019-11-02 13:00] VITALS: BP 127/87
[2019-11-02] MEDS ORDERED: KEPPRA750 MG ORAL (14:07)
[2019-11-02 14:08] LABS: APPEARANCE,URINE CLEAR; BILIRUBIN, URINE NEGATIVE (NEGATIVE); COLOR,URINE PALE YELLOW; GLUCOSE, URINE (UA) NEGATIVE (NEGATIVE); KETONES,URINE NEGATIVE (NEGATIVE); LEUKOCYTE ESTERASE ,URINE NEGATIVE (NEGATIVE); NITRITE,URINE NEGATIVE (NEGATIVE); PH,URINE 6.5 (4.5-8.0); PROTEIN,URINE 3+ (NEGATIVE); UROBILINOGEN,URINE NORMAL MG/DL (0.0-1.0)
[2019-11-02 14:27] VITALS: BP 133/78
== END 2019-11-02 14:27 | disposition home or self-care (01) ==
LOC: EDBD 11:06 → EMR 12:34
DX: G40.909 Epilepsy, unspecified, not intractable, without status epilepticus (principal); F14.10 Cocaine abuse, uncomplicated; I10 Essential (primary) hypertension; J44.9 Chronic obstructive pulmonary disease, unspecified; E11.9 Type 2 diabetes mellitus without complications; Z86.73 Personal history of transient ischemic attack (TIA), and cerebral infarction without residual deficits; Z79.899 Other long term (current) drug therapy
CPT/HCPCS: 36415; 80053; 80307; 81003; 82962; 85025; 93005; 99283

== ENCOUNTER 2019-11-03 18:51 | Emergency (ER) | payer MEDICARE, MEDICAID ==
[~2019-11-03] VITALS: Ht 165.1 cm; Wt 59.0 kg
[2019-11-03 19:13] VITALS: BP 157/90
--- NOTE | 2019-11-03 19:14 | NUR ---
ED Nurse Note:pt. was BIBA from home with reported seizure episode, no fall or injury , skin is intact, pt. is A/Ox4 no c/o pain at this time, pt. placed on security monitor, seen by ER
[2019-11-03] MEDS ORDERED: LORazepam Inj 2mg/ml 1ml IM ONE (19:15)
--- NOTE | 2019-11-03 19:20 | NUR ---
ED Nurse Note: Report received from YOSEPH Clark. Pt is resting in bed, NAD. Will continue to monitor.
--- NOTE | 2019-11-03 19:38 | Emergency Room Report ---
History of Present Illness General Chief Complaint: Seizure Source: Patient Present Illness HPI Disclaimer: Please note that this report is being documented using [employer] technology. This can lead to erroneous entry secondary to incorrect interpretation by the dictating instrument. HPI: 64-year-old female history of seizure disorder, crack cocaine abuse presented after complaints of recurrent seizure. Patient was seen by me yesterday for the same. She did report using crack cocaine yesterday and having a seizure. According to EMS patient does live with a caregiver who did not witness any seizure activity. I did observe patient in the ER approximately 4 hours yesterday with no seizure activity. She does take Keppra and states she has been compliant with her Keppra. 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 Hx Cerebrovascular Accident: Yes Hx Transient Ischemic Attacks: No Hx Dementia: No Hx Alzheimer's Disease: No Hx Parkinson's Disease: No Hx Meningitis: No Hx Encephalitis: No Hx Seizures: Yes Hx Epilepsy: No Hx Multiple Sclerosis: No Hx Cerebral Palsy: No Hx Amyotrophic Lat Sclerosis: No Hx Guillian-[place] Syndrome: No Hx Paralysis: No Hx Peripheral Neuropathy: No Hx Spinal Cord Injury: No Hx Head Trauma: No Hx Traumatic Brain Injury: No Hx Memory Loss: No Hx Concentration Difficulty: No Hx Speech Problem: No Hx Tremors: No Hx Vertigo: No Hx Dizziness: No Hx Syncope: No Hx Headaches: No Hx Aphasia: No Hx Dysphasia: No Hx Numbness: No Hx Weakness: Yes Hx Fatigue: No Hx Neurologic Surgery: No Hx Brain Shunt: No Review of Systems All Other Systems: negative except mentioned in HPI Physical Exam Vital Signs Date Time Temp Pulse Resp B/P (MAP) Pulse Ox O2 Delivery O2 Flow Rate FiO2 11/03/19 18:46 98.2 91 18 181/112 (135) 98 Room Air Sp02 EP Interpretation: reviewed, normal General Appearance: well appearing, no apparent distress Head: normocephalic, atraumatic Eyes: bilateral eye PERRL, bilateral eye EOMI ENT: hearing grossly normal, moist mucus membranes Neck: full range of motion, supple Respiratory: lungs clear, normal breath sounds, no rhonchi, no respiratory distress, no retraction, no wheezing Cardiovascular #1: normal peripheral pulses, regular rate, rhythm, no murmur Gastrointestinal: non tender, soft, non-distended, no guarding 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 Differential included but not limited to anxiety reaction, illicit drug use, breakthrough seizures as well. As patient lives with a caregiver who did not witness any seizure activity and I did evaluate patient yesterday she had no seizure activity yesterday either I do suspect she is having mild anxiety and her feelings may be related to her recent crack cocaine use. Clinical course-patient placed on a gurney. She was given a dose of oral Keppra for her nightly dose. Given 1 mg of Ativan IM. On reevaluation: Patient in no acute distress nontoxic-appearing no recurrent seizure activity noted Plan-plan is to discharge patient home and follow-up with her primary doctor continue her current seizure medication regimen. Return precautions given. Last Vital Signs Date Time Temp Pulse Resp B/P (MAP) Pulse Ox O2 Delivery O2 Flow Rate FiO2 11/03/19 19:13 98.2 83 18 157/90 98 Room Air Status: improved Disposition: HOME, SELF-CARE Condition: Improved Referrals: Zion Bartholomew MD (PCP) Chance Kamara M.D. November 03, 2019 19:38
[2019-11-03 21:05] VITALS: BP 137/65
--- NOTE | 2019-11-03 21:05 | NUR ---
ER DISCHARGE NOTE: Patient is cleared to be discharged per ERMD, pt is aox4, on room air, with stable vital signs. pt was given dc and prescription instructions, pt was able to verbalize understanding, pt id band removed. pt is able to ambulate with steady gait. pt took all belongings.
== END 2019-11-03 21:05 | disposition home or self-care (01) ==
LOC: EDBD 18:51 → EMR 19:17
DX: G40.909 Epilepsy, unspecified, not intractable, without status epilepticus (principal); F41.9 Anxiety disorder, unspecified; F14.10 Cocaine abuse, uncomplicated; Z79.899 Other long term (current) drug therapy; I10 Essential (primary) hypertension; J44.9 Chronic obstructive pulmonary disease, unspecified; E11.9 Type 2 diabetes mellitus without complications; Z86.73 Personal history of transient ischemic attack (TIA), and cerebral infarction without residual deficits
CPT/HCPCS: 96372; 99283

== ENCOUNTER → 2019-12-04 | Day surgery (SDC) | payer MEDICARE, MEDICAID ==
--- NOTE | 2019-07-04 15:48 | Opthalmology H&P ---
Ophthalmology H&P H&P Chief Complaint: decreased vision in right eye HPI Vision Affects Ability to: read, focus/use eyes together HPI Narrative Blurry vision Exam Visual Acuity: OD 20/100 OS 20/50 Tension: OD 16 OS 17 Eye Exam: normal OU: external exam, palpebral fissure-width, marginal reflex distance, levator function, corneas, anterior chambers, fundus exam; findings: lens - NS Cataract OD, Pseudo OS Assessment/Plan Treatment Plan: cataract extraction w/ lens implant Goals of Treatment: improvement of vision, enhance quality of life Attestation Attestation The risks and benefits of the surgery as well as alternative procedures were explained to the patient in detail. Otto Vazquez MD Jul 04, 2019 15:48
--- NOTE | 2019-07-04 15:50 | Pre-Procedure Note/Attestation ---
Pre-Procedure Note/Attestation Complete Prior to Procedure Planned Procedure: right Procedure Narrative: Cataract extraction with IOL implant right eye Indications for Procedure Pre-Operative Diagnosis: Nuclear sclerotic cataract right eye Attestation I attest that I discussed the nature of the procedure; its benefits; risks and complications; and alternatives (and the risks and benefits of such alternatives ), prior to the procedure, with the patient (or the patient's legal independent sales representative). I attest that, if there was a reasonable possibility of needing a blood transfusion, the patient (or the patient's legal independent sales representative) was given the [facility] standardized written summary, pursuant to the [place] [employer] Blood Safety Act ([place] Health and Safety Code # 1645, as amended). I attest that I re-evaluated the patient just prior to the surgery and that there has been no change in the patient's H&P, except as documented below: Otto Vazquez MD Jul 04, 2019 15:50
[2019-11-29 09:12] LABS: HEMOGLOBIN 10.8 G/DL (12.0-16.0); MEAN CORPUSCULAR VOLUME 83 FL (80-99); PLATELET COUNT 439 K/UL (150-450); RED BLOOD COUNT 3.84 M/UL (4.20-5.40); RED CELL DISTRIBUTION WIDTH 11.2 % (11.6-14.8); WHITE BLOOD COUNT 10.4 K/UL (4.8-10.8)
[2019-11-29 09:16] LABS: ANION GAP 9 mmol/L (5-15); BLOOD UREA NITROGEN 10 mg/dL (7-18); CARBON DIOXIDE 25 MMOL/L (21-32); CHLORIDE 97 MMOL/L (98-107); CREATININE 1.2 MG/DL (0.55-1.30); POTASSIUM 3.8 MMOL/L (3.5-5.1); SODIUM 131 MMOL/L (136-145)
[2019-11-29 09:18] LABS: INR 0.9 (0.9-1.1)
--- NOTE | 2019-11-29 13:47 | Opthalmology H&P ---
Ophthalmology H&P H&P Chief Complaint: decreased vision in right eye HPI Vision Affects Ability to: read, manage personal affairs Past Ocular History: glaucoma - Optic nerve pallor HPI Narrative Blurry vision Exam Visual Acuity: OD 20/80 OS 20/50 Tension: OD 16 OS 17 Eye Exam: normal OU: external exam, palpebral fissure-width, marginal reflex distance, levator function, corneas, anterior chambers; findings: lens - NS Cataracts OU, fundus exam - Optic nerve pallor OU Assessment/Plan Treatment Plan: cataract extraction w/ lens implant Goals of Treatment: improvement of vision, enhance quality of life Attestation Attestation The risks and benefits of the surgery as well as alternative procedures were explained to the patient in detail. Otto Vazquez MD Nov 29, 2019 13:47
--- NOTE | 2019-11-29 13:48 | Pre-Procedure Note/Attestation ---
Pre-Procedure Note/Attestation Complete Prior to Procedure Planned Procedure: right Procedure Narrative: Cataract extraction with intraocular lens implant right eye Indications for Procedure Pre-Operative Diagnosis: Nuclear sclerotic cataract right eye Attestation I attest that I discussed the nature of the procedure; its benefits; risks and complications; and alternatives (and the risks and benefits of such alternatives ), prior to the procedure, with the patient (or the patient's legal payroll representative). I attest that, if there was a reasonable possibility of needing a blood transfusion, the patient (or the patient's legal payroll representative) was given the [facility] standardized written summary, pursuant to the [place] Blood Safety Act ([place] Health and Safety Code # 1645, as amended). I attest that I re-evaluated the patient just prior to the surgery and that there has been no change in the patient's H&P, except as documented below: Otto Vazquez MD Nov 29, 2019 13:48
[~2019-12-04] VITALS: Ht 167.6 cm; Wt 54.4 kg
[2019-12-04] VITALS (8 sets, daily range): BP systolic 142–161; BP diastolic 77–97
[~2019-12-04] MED LIST changes: +Akten 3.5% 1ml Btl RIGHT EYE ONE; +Atropine Sulfate 0.4mg/ml inj IVP PRN; +BSS 15ml BTL ONE; +BSS 500ml btl ONE; +Cyclopentolate 1% Opth Sol 2ml RIGHT EYE SCH; +DiphenhydrAMINE 50mg/ml Inj IVP PRN; +EPINEPHrine 1mg/1ml Amp ONE; +HYDROcodone/Acetamin 5/325 tab ORAL PRN; +HYDROcodone/Acetamin 7.5/325 tab ORAL PRN; +Hydromorphone 0.5mg/0.5ml inj IVP PRN; +Ketorolac 30mg Inj IV PRN; +LORazepam Inj 2mg/ml 1ml IV PRN; +LR 1000ml 1,000 ML IVLG SCH; +LR 1000ml ONE; +Labetalol 5mg/ml 20ml vial IV PRN; +Lidocaine 1% MPF 10mg/ml 5ml ONE; +Meperidine 25mg/0.5ml Inj (FOR RIGORS ONLY) IV PRN; +Metoclopramide 10mg/2ml Inj IVP PRN; +Midazolam 2mg/2ml Inj IVP PRN; +Midazolam 2mg/2ml Inj ONE; +NS Irrig 1000ml ONE; +Phenylephrine 10% Opth Soln 5ml RIGHT EYE SCH; +Pilocarpine 1% Opth 15ml Soln ONE; +Polysporin Oint 15gm TOPIC ONE; +Povidone-Iodine 5% opth solution ONE; +Proparacaine 0.5% Opth Soln 15ml RIGHT EYE ONE; +Sodium Hyaluronate 10 mg/ml 0.85ml ONE; +Sterile Water Irrig 1000ml IRRIG ONE; +Tetracaine 0.5% Opth 4ml Soln RIGHT EYE ONE; +Tropicamide 1% Opth 15ml Soln RIGHT EYE SCH; +fentaNYL 100 mcg/2 mL IV PRN; +oxyCODONE HCL/Acetaminophen 5/325mg ORAL PRN; +prednisoLONE acetate 1% Opth Susp 1ml ONE
[2019-12-04] MEDS: Cyclopentolate 1% Opth Sol 2ml RIGHT EYE SCH ×3 (07:01→07:30)
[2019-12-04] MEDS: Tropicamide 1% Opth 15ml Soln RIGHT EYE SCH ×3 (07:01→07:30)
[2019-12-04] MEDS: Tobramycin Op Soln 0.3% 5ml RIGHT EYE SCH ×3 (07:01→07:30)
[2019-12-04] MEDS: Phenylephrine 10% Opth Soln 5ml RIGHT EYE SCH ×3 (07:01→07:31)
[2019-12-04] MEDS: Diclofenac Sod 0.1% Op Soln RIGHT EYE SCH ×3 (07:02→07:31)
--- NOTE | 2019-12-04 09:20 | Anethesia Preoperative Eval ---
Anesthesia Pre-op PMH/ROS General Date of Evaluation: Dec 04, 2019 Time of Evaluation: 09:32 Anesthesiologist: Juanita ASA Score: ASA 3 Mallampati Score Class I : Soft palate, uvula, fauces, pillars visible Class II: Soft palate, uvula, fauces visible Class III: Soft palate, base of uvula visible Class IV: Only hard plate visible Mallampati Classification: Class II Surgeon: Taylor Diagnosis: Cat OD Surgical Procedure: Cat Ext IOL OD Anesthesia History: none Family History: no anesthesia problems Allergies: Coded Allergies: No Known Allergies (Unverified , 09/12/12) Medications: see eMAR Patient NPO?: Yes Past Medical History Cardiovascular: Reports: HTN, CAD, other - CHF Pulmonary: Reports: asthma, COPD Gastrointestinal/Genitourinary: Reports: GERD Neurologic/Psychiatric: Reports: CVA - Seizures Endocrine: Reports: DM Anesthesia Pre-op Phys. Exam Physician Exam Last Vital Signs Date Time Temp Pulse Resp B/P (MAP) Pulse Ox O2 Delivery O2 Flow Rate FiO2 12/04/19 07:05 97.1 79 18 142/90 100 Room Air Constitutional: NAD Neurologic: CN 2-12 intact Cardiovascular: RRR Respiratory: CTA Gastrointestinal: S/NT/ND Airway Exam Mallampati Score: Class II MO: full ROM: full Anesthesia Pre-op A/P Risk Assessment & Plan Assessment: ASA 3 Plan: TIVA Status Change Before Surgery: Giorgi He MD Dec 04, 2019 09:20
--- NOTE | 2019-12-04 09:49 | Immediate Post-Op Evaluation ---
Immediate Post-Op Evalulation Immediate Post-Op Evalulation Procedure: Cat Ext IOL OD Date of Evaluation: Dec 04, 2019 Time of Evaluation: 10:27 IV Fluids: 500 LR Blood Products: 0 Estimated Blood Loss: 1 Urinary Output: 0 Blood Pressure Systolic: 159 Blood Pressure Diastolic: 78 Pulse Rate: 73 Respiratory Rate: 16 O2 Sat by Pulse Oximetry: 97 Temperature (Fahrenheit): 97.6 Pain Score (1-10): 1 Nausea: No Vomiting: No Complications 0 Patient Status: awake, reacts, patent, none Hydration Status: adequate Giorgi Grant MD Dec 04, 2019 09:49
--- NOTE | 2019-12-04 09:50 | 48 Hour Post Anesthesia Eval ---
Post Anesthesia Evaluation Procedure: Cat Ext IOL OD Date of Evaluation: Dec 04, 2019 Time of Evaluation: 12:32 Blood Pressure Systolic: 152 0: 76 Pulse Rate: 73 Respiratory Rate: 18 Temperature (Fahrenheit): 97.7 O2 Sat by Pulse Oximetry: 99 Airway: patent Nausea: No Vomiting: No Pain Intensity: 1 Hydration Status: adequate Cardiopulmonary Status: Stable Mental Status/LOC: patient returned to baseline Follow-up Care/Observations: 0 Post-Anesthesia Complications: 0 Follow-up care needed: ready to discharge Giorgi Grant MD Dec 04, 2019 09:50
--- NOTE | 2019-12-04 14:24 | Brief Operative Note ---
Immediate Post Operative Note Operative Note Chief Complaint: Blurry vision Pre-op Diagnosis: Nuclear sclerotic cataract right eye Procedure: Cataract extraction with IOL implant right eye Post-op Diagnosis: Pseudophakia OD Findings: consistent w/pre-op dx studies Surgeon: Otto Vazquez MD Anesthesiologist: Giorgi Grant MD Anesthesia: MAC Specimen: none Complications: none Condition: stable Fluids: LR Estimated Blood Loss: none Drains: none Implant(s) used?: Yes - IOL-OD Otto Vazquez MD Dec 04, 2019 14:24
--- NOTE | 2019-12-04 14:29 | Operative Note - PDOC ---
Operative Note Operative Note Date of Operation/Procedure: Dec 04, 2019 Chief Complaint: Blurry vision Pre-op Diagnosis: Nuclear sclerotic cataract right eye Procedure: Cataract extraction with IOL implant right eye Post-op Diagnosis: Pseudophakia OD Operative Findings: consistent w/pre-op dx studies Surgeon: Otto Vazquez MD Anesthesiologist: Giorgi Grant MD Anesthesia: MAC Specimen: none Complications: none Condition: stable Fluids: LR Estimated Blood Loss: none Drains: none Implant(s) used?: Yes - IOL-OD Indications for Procedure Nuclear sclerotic cataract right eye Description of Procedure This patient has been complaining visually significant cataract in the right eye with the best corrected visual acuity of 20/80 under moderate glare conditions worse. The patient complains of difficulties with glare in performing activities of daily living and wants to manage personal affairs with comfort and accuracy and see well enough to move with safety at home and outdoors. The risks, benefits and alternatives of the procedure were discussed with the patient in the office prior to scheduling surgery. All questions from the patient were answered after the surgical procedure was explained in detail. The risks of the procedure as explained to the patient include, but are not limited to, pain, infection, bleeding, loss of vision, retinal detachment, need for further surgery, loss of lens nucleus, double vision, etc. Alternative procedures were discussed which include, to do nothing or seek a second opinion. Informed consent for this procedure was obtained from the patient. The patient was referred to a primary care physician for a cardiopulmonary clearance prior to surgery, after proper evaluation was done patient was properly scheduled for outpatient surgery. The patient was brought to the operating room where the anesthesiologist established I.V. lines and cardiac monitoring leads. Mild intravenous sedation was administered. The patient was then prepared with a 5% solution of povidone -iodine to the conjunctival fornix and lashes, and a 5% solution of povidone- iodine to the lids and periorbital skin. The patient was then draped in the usual sterile fashion. A lid speculum was then placed in the operative eye. A keratome blade was then used to create a biplanar incision into the anterior chamber. Viscoelastics was then instilled into the anterior chamber. A capsulorrhexis was then fashioned with an utrata forceps A G 27 cannula was used to hydrodissect and hydro delineate the lens nucleus. Paracentesis incision was made at 3 o'clock with sharp blade. The phacoemulsification unit, after being properly adjusted and tested, was then used to emulsify the nucleus. Residual cortical material was aspirated with the irrigation and aspiration unit. Healon was then instilled into the anterior chamber. The corneal wound was then enlarged to the size of the optic with the adalgisa keratome blade. The intraocular lens was then inspected for right power and size and thought to be satisfactory. Then the lens was gently placed in the capsular bag. Positioning within the capsular bag was confirmed by direct visualization. Optic centration was accomplished with a [place] hook. Viscoelastics was removed from the anterior chamber using the irrigation and aspiration unit. The corneal wound was then tested for leaks and none were found. The lid speculum were then removed. Sponge and needle counts were correct. An eye patch and shield were placed over the operative eye. The patient was taken to the recovery room in stable condition. There were no complications. The patient tolerated the procedure well. The patient was then transferred to the ambulatory surgery unit in stable and satisfactory condition , was given detailed written instructions and asked to follow up in the office the next day. Otto Vazquez MD Dec 04, 2019 14:29
== END | disposition home or self-care (01) ==
LOC: SUR 06:12
DX: H25.11 Age-related nuclear cataract, right eye (principal); H40.9 Unspecified glaucoma; I25.10 Atherosclerotic heart disease of native coronary artery without angina pectoris; I11.0 Hypertensive heart disease with heart failure; I50.9 Heart failure, unspecified; J44.9 Chronic obstructive pulmonary disease, unspecified; K21.9 Gastro-esophageal reflux disease without esophagitis; E11.9 Type 2 diabetes mellitus without complications; Z86.73 Personal history of transient ischemic attack (TIA), and cerebral infarction without residual deficits
CPT/HCPCS: 36415; 66984; 80048; 85007; 85025; 85610; 85730; 93005; 94003; J0171; J1100; J2250; J2704; J3370; J7120; V2632; 94150

== ENCOUNTER 2020-04-06 09:38 | Emergency (ER) | payer MEDICARE, MEDICAID ==
[~2020-04-06] VITALS: Ht 147.3 cm; Wt 43.1 kg
[~2020-04-06 09:38] MED LIST changes: -Akten 3.5% 1ml Btl RIGHT EYE ONE; -Atropine Sulfate 0.4mg/ml inj IVP PRN; -BSS 15ml BTL ONE; -BSS 500ml btl ONE; -Cyclopentolate 1% Opth Sol 2ml RIGHT EYE SCH; -DiphenhydrAMINE 50mg/ml Inj IVP PRN; -EPINEPHrine 1mg/1ml Amp ONE; -HYDROcodone/Acetamin 5/325 tab ORAL PRN; -HYDROcodone/Acetamin 7.5/325 tab ORAL PRN; -Hydromorphone 0.5mg/0.5ml inj IVP PRN; -Ketorolac 30mg Inj IV PRN; -LORazepam Inj 2mg/ml 1ml IV PRN; -LR 1000ml 1,000 ML IVLG SCH; -LR 1000ml ONE; -Labetalol 5mg/ml 20ml vial IV PRN; -Lidocaine 1% MPF 10mg/ml 5ml ONE; -Meperidine 25mg/0.5ml Inj (FOR RIGORS ONLY) IV PRN; -Metoclopramide 10mg/2ml Inj IVP PRN; -Midazolam 2mg/2ml Inj IVP PRN; -Midazolam 2mg/2ml Inj ONE; -NS Irrig 1000ml ONE; -Phenylephrine 10% Opth Soln 5ml RIGHT EYE SCH; -Pilocarpine 1% Opth 15ml Soln ONE; -Polysporin Oint 15gm TOPIC ONE; -Povidone-Iodine 5% opth solution ONE; -Proparacaine 0.5% Opth Soln 15ml RIGHT EYE ONE; -Sodium Hyaluronate 10 mg/ml 0.85ml ONE; -Sterile Water Irrig 1000ml IRRIG ONE; -Tetracaine 0.5% Opth 4ml Soln RIGHT EYE ONE; -Tropicamide 1% Opth 15ml Soln RIGHT EYE SCH; -fentaNYL 100 mcg/2 mL IV PRN; -oxyCODONE HCL/Acetaminophen 5/325mg ORAL PRN; -prednisoLONE acetate 1% Opth Susp 1ml ONE
--- NOTE | 2020-04-06 09:44 | Emergency Room Report ---
History of Present Illness General Chief Complaint: General Complaint Source: Patient, EMS Present Illness HPI Patient is a 65-year-old female past medical history of anxiety and seizure disorder who was brought in by EMS stating that she feels like she is going to have a seizure. Per caregiver who spoke with EMS she told them that patient gets anxious after having her albuterol treatment which she took this morning. Patient states that she feels shaky. She states that she feels that she is going to have a seizure. She states that she is compliant with her medications. She denies any chest pain or shortness of breath. She denies any headache or focal weakness. She denies any abdominal pain nausea or vomiting. Patient states that she really does not want to have another seizure which is why she is here. 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 Hx Cerebrovascular Accident: Yes Hx Transient Ischemic Attacks: No Hx Dementia: No Hx Alzheimer's Disease: No Hx Parkinson's Disease: No Hx Meningitis: No Hx Encephalitis: No Hx Seizures: Yes Hx Epilepsy: No Hx Multiple Sclerosis: No Hx Cerebral Palsy: No Hx Amyotrophic Lat Sclerosis: No Hx Guillian-[place] Syndrome: No Hx Paralysis: No Hx Peripheral Neuropathy: No Hx Spinal Cord Injury: No Hx Head Trauma: No Hx Traumatic Brain Injury: No Hx Memory Loss: No Hx Concentration Difficulty: No Hx Speech Problem: No Hx Tremors: No Hx Vertigo: No Hx Dizziness: No Hx Syncope: No Hx Headaches: No Hx Aphasia: No Hx Dysphasia: No Hx Numbness: No Hx Weakness: Yes Hx Fatigue: No Hx Neurologic Surgery: No Hx Brain Shunt: No Review of Systems All Other Systems: negative except mentioned in HPI Physical Exam Sp02 EP Interpretation: reviewed, normal General Appearance: no apparent distress, alert, GCS 15, non-toxic, thin, other - Appears older than stated age Head: normocephalic, atraumatic Eyes: bilateral eye normal inspection, bilateral eye PERRL ENT: hearing grossly normal, normal pharynx, no angioedema, normal voice Neck: full range of motion, supple/symm/no masses Respiratory: chest non-tender, lungs clear, normal breath sounds, speaking full sentences Cardiovascular #1: regular rate, rhythm, no edema Gastrointestinal: normal bowel sounds, non tender, soft, non-distended, no guarding, no rebound Rectal: deferred Musculoskeletal: no calf tenderness, no lower extremity edema Neurologic: it account manager III-XII nml as tested, oriented x3, other - Mildly tremulous Psychiatric: no suicidal/homicidal ideation, anxious Skin: no rash Lymphatic: no adenopathy Medical Decision Making Diagnostic Impression: Primary Impression: Anxiety ER Course Patient's vital signs are stable. Patient given 1 mg of Ativan and IV fluids. She states that her symptoms have improved a lot. She is requesting an oral d ose of antianxiety medication so that it will work while she is at home and a prescription as well. I have given her 0.05 mg of oral Xanax. Patient's UDS is positive for opiates. She states that she takes 03/30/2025 [place] for chronic hand pain. She is requesting pain medication. I have given her 1 [place] in the emergency room. Patient's labs otherwise demonstrate no significant acute abnormalities. After discussing risks and benefits of further diagnostics, treatment plans, as well as indications for and risks of admission, the patient is agreeable to being discharged home. I have explained that their evaluation and treatment in the emergency department today is an important step towards them achieving better health but that their evaluation today is not intended to replace further evaluation and treatment by a physician in their local clinic. I have explained that while the current findings suggest no immediate life threatening emergency they will require further evaluation and treatment by a physician of their choice in their area. They understand that it will be necessary for them to review the final reports of their ED visit with their clinic physician. We have reviewed indications for return to the Emergency Department. I have explained that additional time may need to pass and/or additional testing as an outpatient may be necessary before a definitive diagnosis can be made. They tell me they are willing to follow up as instructed within the timeframe I recommend. They appear to understand what we discussed. Additionally they understand that if they are unable to be seen by an outpatient physician they are welcome, and in fact should, return to the Emergency Department for a repeat evaluation. The patient is stable at time of discharge. Laboratory Tests Test 04/06/20 10:14 04/06/20 10:46 White Blood Count 9.1 K/UL (4.8-10.8) Red Blood Count 4.41 M/UL (4.20-5.40) Hemoglobin 12.3 G/DL (12.0-16.0) Hematocrit 39.0 % (37.0-47.0) Mean Corpuscular Volume 88 FL (80-99) Mean Corpuscular Hemoglobin 27.9 PG (27.0-31.0) Mean Corpuscular Hemoglobin Concent 31.6 G/DL (32.0-36.0) L Red Cell Distribution Width 11.9 % (11.6-14.8) Platelet Count 346 K/UL (150-450) Mean Platelet Volume 5.4 FL (6.5-10.1) L Neutrophils (%) (Auto) 70.4 % (45.0-75.0) Lymphocytes (%) (Auto) 19.9 % (20.0-45.0) L Monocytes (%) (Auto) 6.1 % (1.0-10.0) Eosinophils (%) (Auto) 0.9 % (0.0-3.0) Basophils (%) (Auto) 2.7 % (0.0-2.0) H Sodium Level 135 MMOL/L (136-145) L Potassium Level 3.8 MMOL/L (3.5-5.1) Chloride Level 102 MMOL/L (98-107) Carbon Dioxide Level 24 MMOL/L (21-32) Anion Gap 9 mmol/L (5-15) Blood Urea Nitrogen 7 mg/dL (7-18) Creatinine 1.1 MG/DL (0.55-1.30) Estimated Glomerular Filtration Rate > 60 mL/min (>60) Glucose Level 98 MG/DL (74-106) Calcium Level 10.8 MG/DL (8.5-10.1) H Total Bilirubin 0.3 MG/DL (0.2-1.0) Aspartate Amino Transferase (AST) 28 U/L (15-37) Alanine Aminotransferase (ALT) 53 U/L (12-78) Alkaline Phosphatase 168 U/L (46-116) H Troponin I 0.000 ng/mL (0.000-0.056) Total Protein 8.3 G/DL (6.4-8.2) H Albumin 4.5 G/DL (3.4-5.0) Globulin 3.8 g/dL Albumin/Globulin Ratio 1.2 (1.0-2.7) Thyroid Stimulating Hormone (TSH) 1.379 uiU/mL (0.358-3.740) Free Thyroxine 1.40 NG/DL (0.76-1.46) Urine Color Pale yellow Urine Appearance Clear Urine pH 6 (4.5-8.0) Urine Specific [place] 1.010 (1.005-1.035) Urine Protein 2+ (NEGATIVE) H Urine Glucose (UA) Negative (NEGATIVE) Urine Ketones Negative (NEGATIVE) Urine Blood Negative (NEGATIVE) Urine Nitrite Negative (NEGATIVE) Urine Bilirubin Negative (NEGATIVE) Urine Urobilinogen Normal MG/DL (0.0-1.0) Urine Leukocyte Esterase Negative (NEGATIVE) Urine RBC 0 /HPF (0 - 2) Urine WBC 0 /HPF (0 - 2) Urine Squamous Epithelial Cells Occasional /LPF Urine Bacteria Occasional /HPF (NONE) Urine Opiates Screen Positive (NEGATIVE) H Urine Barbiturates Screen Negative (NEGATIVE) Phencyclidine (PCP) Screen Negative (NEGATIVE) Urine Amphetamines Screen Negative (NEGATIVE) Urine Benzodiazepines Screen Negative (NEGATIVE) Urine Cocaine Screen Negative (NEGATIVE) Urine Marijuana (THC) Screen Negative (NEGATIVE) EKG Diagnostic Results Troponin ordered: Yes When was troponin ordered?: Apr 06, 2020 EKG Time: 10:23 EP Interpretation: Bella Jennings MD Rate: normal Rhythm: NSR ST Segments: other - VSS elevation consistent with early repolarization or pericarditis ASA given to the pt in ED: Yes Rhythm Strip Diag. Results Rhythm Strip Time: 09:58 EP Interpretation: yes - Bella Jennings MD Rate: 69 bpm Rhythm: NSR, no PVC's, no ectopy Chest X-Ray Diagnostic Results Chest X-Ray Diagnostic Results : Chest X-Ray Ordered: Yes # of Views/Limited/Complete: 1 View Indication: Other - Tremors EP Interpretation: Yes Interpretation: no consolidation, no effusion, no pneumothorax, other - Cardiomegaly Impression: No acute disease Electronically Signed by: Bella Jennings MD Disposition: HOME, SELF-CARE Condition: Stable Scripts Alprazolam* (XANAX*) 0.25 Mg Tablet 0.5 MG ORAL TID PRN for For Anxiety, #20 TAB Prov: Bella Jennings M.D. 04/06/20 Additional Instructions: The patient was provided with discharge instructions, notified to follow-up with a primary care doctor and or specialist in the next 24-48 hours, and to return to the ED if they have worsening of their symptoms. Please note that this report is being documented using [employer] technology. This can lead to erroneous entry secondary to incorrect interpretation by the dictating instrument. Bella Jennings M.D. Apr 06, 2020 09:44
[2020-04-06] MEDS ORDERED: LORazepam Inj 2mg/ml 1ml IV ONE (09:45)
[2020-04-06 10:00] VITALS: BP 132/76
[2020-04-06] MEDS ORDERED: levETIRAcetam 500mg/NS100ml 100 ML IVPB ONE (10:00)
--- NOTE | 2020-04-06 10:00 | NUR ---
ED Nurse Note: Pt BIBA from home due to possible seizure. Pt was anxious after getting breathing treatment at home and stated she felt like she was having seizure. Pt was shaky on R side. Pt is alert and ox4, ambulatory. Pt set up monitor.
[2020-04-06 10:35] LABS: BASOPHILS % (AUTO) 2.7 % (0.0-2.0); EOSINOPHILS % (AUTO) 0.9 % (0.0-3.0); HEMOGLOBIN 12.3 G/DL (12.0-16.0); LYMPHOCYTES % (AUTO) 19.9 % (20.0-45.0); MEAN CORPUSCULAR VOLUME 88 FL (80-99); MONOCYTES % (AUTO) 6.1 % (1.0-10.0); NEUTROPHILS % (AUTO) 70.4 % (45.0-75.0); PLATELET COUNT 346 K/UL (150-450); RED BLOOD COUNT 4.41 M/UL (4.20-5.40); RED CELL DISTRIBUTION WIDTH 11.9 % (11.6-14.8); WHITE BLOOD COUNT 9.1 K/UL (4.8-10.8)
[2020-04-06 10:42] LABS: ANION GAP 9 mmol/L (5-15); BLOOD UREA NITROGEN 7 mg/dL (7-18); CALCIUM 10.8 MG/DL (8.5-10.1); CARBON DIOXIDE 24 MMOL/L (21-32); CHLORIDE 102 MMOL/L (98-107); CREATININE 1.1 MG/DL (0.55-1.30); POTASSIUM 3.8 MMOL/L (3.5-5.1); SODIUM 135 MMOL/L (136-145)
[2020-04-06 10:54] LABS: ALANINE AMINOTRANSFERASE 53 U/L (12-78); ALBUMIN 4.5 G/DL (3.4-5.0); ALBUMIN/GLOBULIN RATIO 1.2 (1.0-2.7); ALKALINE PHOSPHATASE 168 U/L (46-116); ASPARTATE AMINO TRANSFERASE 28 U/L (15-37); BILIRUBIN,TOTAL 0.3 MG/DL (0.2-1.0)
[2020-04-06 11:09] LABS: APPEARANCE,URINE CLEAR; BILIRUBIN, URINE NEGATIVE (NEGATIVE); COLOR,URINE PALE YELLOW; GLUCOSE, URINE (UA) NEGATIVE (NEGATIVE); KETONES,URINE NEGATIVE (NEGATIVE); LEUKOCYTE ESTERASE ,URINE NEGATIVE (NEGATIVE); NITRITE,URINE NEGATIVE (NEGATIVE); PH,URINE 6 (4.5-8.0); PROTEIN,URINE 2+ (NEGATIVE); UROBILINOGEN,URINE NORMAL MG/DL (0.0-1.0)
[2020-04-06] MEDS ORDERED: ALPRAZOLAM0.25 MG ORAL (11:26)
[2020-04-06] MEDS ORDERED: ALPRAZolam 0.5mg tab ORAL ONE (11:30)
[2020-04-06] MEDS ORDERED: HYDROcodone/Acetamin 5/325 tab ORAL ONE (11:45)
[2020-04-06 11:46] VITALS: BP 124/79
[2020-04-06 12:28] VITALS: BP 131/76
--- NOTE | 2020-04-06 12:28 | NUR ---
ER DISCHARGE NOTE: Patient is cleared to be discharged per ERMD, pt is aox4, on room air, with stable vital signs. pt was able to verbalize understanding, pt id band and iv site removed without complications. pt is able to ambulate with steady gait. pt took all belongings. Pt educated on anxiety.
--- NOTE | 2020-04-08 06:18 | Diagnostic Imaging Report ---
EXAM: XR Chest, 1 View CLINICAL HISTORY: AMS TECHNIQUE: Frontal view of the chest. COMPARISON: No relevant prior studies available. FINDINGS/IMPRESSION: Hyperinflation with chronically increased interstitial markings. No focal infiltrate or pneumothorax. Trace left pleural effusion. Cardiomegaly. Calcified aorta. Diffuse osseous demineralization.
== END 2020-04-06 12:30 | disposition home or self-care (01) ==
LOC: EDBD 09:38 → EMR 09:57
DX: F41.9 Anxiety disorder, unspecified (principal); G40.909 Epilepsy, unspecified, not intractable, without status epilepticus; Z86.73 Personal history of transient ischemic attack (TIA), and cerebral infarction without residual deficits; I10 Essential (primary) hypertension; E11.9 Type 2 diabetes mellitus without complications; K57.90 Diverticulosis of intestine, part unspecified, without perforation or abscess without bleeding; I51.7 Cardiomegaly; Z79.891 Long term (current) use of opiate analgesic; J44.9 Chronic obstructive pulmonary disease, unspecified
CPT/HCPCS: 36415; 71045; 80053; 80307; 81003; 84439; 84443; 84484; 85025; 96361; 96374; 96375; 99284; J1953; J7030

== ENCOUNTER 2020-04-07 10:48 | Emergency (ER) | payer MEDICARE, MEDICAID ==
[~2020-04-07] VITALS: Ht 147.3 cm; Wt 45.4 kg
[~2020-04-07 10:48] MED LIST changes: +ALPRAZOLAM0.25 MG ORAL
--- NOTE | 2020-04-07 10:53 | Emergency Room Report ---
History of Present Illness General Chief Complaint: Dyspnea/Respdistress Source: Patient, EMS Present Illness HPI Patient is a 65-year-old female past medical history of COPD current smoker and anxiety who presents to the ER complaining of shortness of breath. Patient states that she smoked a cigarette and took her typical breathing treatment but still felt a little bit short of breath and anxious. Patient states that she was supposed to fill a prescription for anxiety medication and that her caregiver did not have a chance to do it yet. She denies any chest pain. She denies any fever or chills. She denies any abdominal pain. Patient was brought in by EMS. Per EMS patient's oxygen saturation is between 98 and 100% on room air. Patient denies any cough. She denies any sick contacts. Allergies: Coded Allergies: No Known Allergies (Unverified , 09/12/12) COVID-19 Screening Contact w/high risk pt: No Recent Travel to affected area: No Experienced COVID-19 symptoms?: Yes COVID-19 Testing performed COMMUNITY OUTREACH WORKER: No Patient History Reviewed Nursing Documentation: PMH: Agreed; PSxH: Agreed Nursing Documentation-PMH Hx Cardiac Problems: Yes - stroke, renal failure, substance abuse Hx Hypertension: Yes Hx Pacemaker: No Hx Asthma: Yes Hx COPD: Yes Hx Diabetes: Yes Hx Cancer: No Hx Gastrointestinal Problems: Yes - DIVERTICULITS, FISTULA Hx Neurological Problems: Yes - 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 Hx Cerebrovascular Accident: Yes Hx Transient Ischemic Attacks: No Hx Dementia: No Hx Alzheimer's Disease: No Hx Parkinson's Disease: No Hx Meningitis: No Hx Encephalitis: No Hx Seizures: Yes Hx Epilepsy: No Hx Multiple Sclerosis: No Hx Cerebral Palsy: No Hx Amyotrophic Lat Sclerosis: No Hx Guillian-[place] Syndrome: No Hx Paralysis: No Hx Peripheral Neuropathy: No Hx Spinal Cord Injury: No Hx Head Trauma: No Hx Traumatic Brain Injury: No Hx Memory Loss: No Hx Concentration Difficulty: No Hx Speech Problem: No Hx Tremors: No Hx Vertigo: No Hx Dizziness: No Hx Syncope: No Hx Headaches: No Hx Aphasia: No Hx Dysphasia: No Hx Numbness: No Hx Weakness: Yes Hx Fatigue: No Hx Neurologic Surgery: No Hx Brain Shunt: No Review of Systems All Other Systems: negative except mentioned in HPI Physical Exam Vital Signs Date Time Temp Pulse Resp B/P (MAP) Pulse Ox O2 Delivery O2 Flow Rate FiO2 04/07/20 10:31 98.6 62 18 122/68 (86) 98 Room Air Sp02 EP Interpretation: reviewed, normal General Appearance: no apparent distress, alert, GCS 15, non-toxic Head: normocephalic, atraumatic Eyes: bilateral eye normal inspection, bilateral eye PERRL ENT: hearing grossly normal, normal pharynx, no angioedema, normal voice Neck: full range of motion, supple/symm/no masses Respiratory: chest non-tender, lungs clear, normal breath sounds, no respiratory distress, no accessory muscle use, speaking full sentences Cardiovascular #1: regular rate, rhythm, no edema Gastrointestinal: normal bowel sounds, non tender, soft, non-distended, no guarding, no rebound Rectal: deferred Genitourinary: no CVA tenderness Musculoskeletal: no calf tenderness, no lower extremity edema Neurologic: 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 I have given her her home [place] as well as 1 mg of Ativan. She states that she feels much improved and that her shortness of breath has resolved. Her vital signs are stable. She is not hypoxic, tachypneic or tachycardic. Chest x-ray demonstrates no acute cardiopulmonary pathology. Patient tested positive for COVID-19. I given the patient and her caregiver instructions on home isolation for 2 weeks. As well as very strict return precautions. After discussing risks and benefits of further diagnostics, treatment plans, as well as indications for and risks of admission, the patient is agreeable to being discharged home. Rafaela schulz explained that their evaluation and treatment in the emergency department today is an important step towards them achieving better health but that their evaluation today is not intended to replace further evaluation and treatment by a physician in their local clinic. I have explained that while the current findings suggest no immediate life threatening emergency they will require further evaluation and treatment by a physician of their choice in their area. They understand that it will be necessary for them to review the final reports of their ED visit with their clinic physician. We have reviewed indications for return to the Emergency Department. I have explained that additional time may need to pass and/or additional testing as an outpatient may be necessary before a definitive diagnosis can be made. They tell me they are willing to follow up as instructed within the timeframe I recommend. They appear to understand what we discussed. Additionally they understand that if they are unable to be seen by an outpatient physician they are welcome, and in fact should, return to the Emergency Department for a repeat evaluation. The patient is stable at time of discharge. Laboratory Tests Test 04/07/20 11:04 04/07/20 11:10 Arterial Blood pH 7.377 (7.350-7.450) Arterial Blood Partial Pressure CO2 34.7 mmHg (35.0-45.0) L Arterial Blood Partial Pressure O2 97.0 mmHg (75.0-100.0) Arterial Blood HCO3 19.9 mmol/L (22.0-26.0) L Arterial Blood Oxygen Saturation 96.6 % (95-100) Arterial Blood Base Excess -4.6 (-2-2) L Satya Test Positive White Blood Count 7.9 K/UL (4.8-10.8) Red Blood Count 3.35 M/UL (4.20-5.40) L Hemoglobin 9.6 G/DL (12.0-16.0) L Hematocrit 29.4 % (37.0-47.0) L Mean Corpuscular Volume 88 FL (80-99) Mean Corpuscular Hemoglobin 28.7 PG (27.0-31.0) Mean Corpuscular Hemoglobin Concent 32.7 G/DL (32.0-36.0) Red Cell Distribution Width 12.1 % (11.6-14.8) Platelet Count 342 K/UL (150-450) Mean Platelet Volume 5.7 FL (6.5-10.1) L Neutrophils (%) (Auto) 58.9 % (45.0-75.0) Lymphocytes (%) (Auto) 27.7 % (20.0-45.0) Monocytes (%) (Auto) 8.5 % (1.0-10.0) Eosinophils (%) (Auto) 1.2 % (0.0-3.0) Basophils (%) (Auto) 3.7 % (0.0-2.0) H D-Dimer 0.48 mg/L FEU (0.00-0.49) Sodium Level 135 MMOL/L (136-145) L Potassium Level 3.8 MMOL/L (3.5-5.1) Chloride Level 103 MMOL/L (98-107) Carbon Dioxide Level 22 MMOL/L (21-32) Anion Gap 10 mmol/L (5-15) Blood Urea Nitrogen 8 mg/dL (7-18) Creatinine 0.8 MG/DL (0.55-1.30) Estimated Glomerular Filtration Rate > 60 mL/min (>60) Glucose Level 104 MG/DL (74-106) Calcium Level 9.4 MG/DL (8.5-10.1) Total Bilirubin 0.2 MG/DL (0.2-1.0) Aspartate Amino Transferase (AST) 26 U/L (15-37) Alanine Aminotransferase (ALT) 44 U/L (12-78) Alkaline Phosphatase 123 U/L (46-116) H Troponin I 0.001 ng/mL (0.000-0.056) Pro-B-Type Natriuretic Peptide 232 pg/mL (0-125) H Total Protein 6.8 G/DL (6.4-8.2) Albumin 3.4 G/DL (3.4-5.0) Globulin 3.4 g/dL Albumin/Globulin Ratio 1.0 (1.0-2.7) Microbiology Date/Time Source Procedure Growth Status 04/07/20 11:25 Nasopharynx SARS-CoV-2 RdRp Gene Assay - Final Complete EKG Diagnostic Results Troponin ordered: Yes When was troponin ordered?: Apr 07, 2020 EKG Time: 11:09 EP Interpretation: Bella Jennings MD Rate: bradycardiac - 56 bpm Rhythm: other - Sinus bradycardia ST Segments: no acute changes ASA given to the pt in ED: No Rhythm Strip Diag. Results Rhythm Strip Time: 10:53 EP Interpretation: yes - Bella Jennings MD Rate: 63 bpm Rhythm: NSR, no PVC's, no ectopy Chest X-Ray Diagnostic Results Chest X-Ray Diagnostic Results : Chest X-Ray Ordered: Yes # of Views/Limited/Complete: 1 View Indication: Shortness of Breath EP Interpretation: Yes Interpretation: no consolidation, no effusion, no pneumothorax, no acute cardiopulmonary disease Impression: No acute disease Electronically Signed by: Bella Jennings MD Last Vital Signs Date Time Temp Pulse Resp B/P (MAP) Pulse Ox O2 Delivery O2 Flow Rate FiO2 04/07/20 10:31 98.6 62 18 122/68 (86) 98 Room Air Disposition: HOME, SELF-CARE Condition: Stable Additional Instructions: The patient was provided with discharge instructions, notified to follow-up with a primary care doctor and or specialist in the next 24-48 hours, and to return to the ED if they have worsening of their symptoms. Please note that this report is being documented using [employer] technology. This can lead to erroneous entry secondary to incorrect interpretation by the dictating instrument. Bella Jennings M.D. Apr 07, 2020 10:53
--- NOTE | 2020-04-07 11:00 | NUR ---
ED Nurse Note: Pt brought in by ambulance fro home c/o SOB. O2 sat 98% on room air. All other vitals stable as documented. Pt was seen @ [facility] yesterday and discharged. A+Ox4, speaking in complete sentences.
[2020-04-07 11:18] VITALS: BP 129/64
[2020-04-07 11:25] LABS: BASOPHILS % (AUTO) 3.7 % (0.0-2.0); EOSINOPHILS % (AUTO) 1.2 % (0.0-3.0); HEMATOCRIT 29.4 % (37.0-47.0); HEMOGLOBIN 9.6 G/DL (12.0-16.0); LYMPHOCYTES % (AUTO) 27.7 % (20.0-45.0); MEAN CORPUSCULAR VOLUME 88 FL (80-99); MONOCYTES % (AUTO) 8.5 % (1.0-10.0); NEUTROPHILS % (AUTO) 58.9 % (45.0-75.0); PLATELET COUNT 342 K/UL (150-450); RED BLOOD COUNT 3.35 M/UL (4.20-5.40); RED CELL DISTRIBUTION WIDTH 12.1 % (11.6-14.8); WHITE BLOOD COUNT 7.9 K/UL (4.8-10.8)
[2020-04-07] MEDS ORDERED: LORazepam Inj 2mg/ml 1ml IV ONE (11:30)
[2020-04-07] MEDS ORDERED: HYDROcodone/Acetamin 10/325 tab ORAL ONE (11:30)
[2020-04-07 11:37] LABS: ANION GAP 10 mmol/L (5-15); BLOOD UREA NITROGEN 8 mg/dL (7-18); CALCIUM 9.4 MG/DL (8.5-10.1); CARBON DIOXIDE 22 MMOL/L (21-32); CHLORIDE 103 MMOL/L (98-107); CREATININE 0.8 MG/DL (0.55-1.30); POTASSIUM 3.8 MMOL/L (3.5-5.1); SODIUM 135 MMOL/L (136-145)
[2020-04-07 11:51] LABS: ALANINE AMINOTRANSFERASE 44 U/L (12-78); ALBUMIN 3.4 G/DL (3.4-5.0); ALKALINE PHOSPHATASE 123 U/L (46-116); ASPARTATE AMINO TRANSFERASE 26 U/L (15-37); BILIRUBIN,TOTAL 0.2 MG/DL (0.2-1.0)
--- NOTE | 2020-04-07 13:55 | NUR ---
ED Nurse Note: pt provided information on COVID and is instructed to self-isolate for 14 days. Spoke with pt's radio message router who knows to get tested and have friends and family get tested as well.
[2020-04-07 14:00] VITALS: BP 129/74
--- NOTE | 2020-04-07 14:00 | NUR ---
ER DISCHARGE NOTE: Patient is cleared to be discharged per ERMD, pt is aox4, on room air, with stable vital signs. pt was given dc and prescription instructions, pt was able to verbalize understanding, pt id band and iv site removed without complications. pt discharged safely via gurney en route to her home by ambulance.
== END 2020-04-07 14:00 | disposition home or self-care (01) ==
LOC: EDBD 10:48 → EMR 12:17
DX: U07.1 COVID-19 (principal); F41.9 Anxiety disorder, unspecified; J44.9 Chronic obstructive pulmonary disease, unspecified; F17.200 Nicotine dependence, unspecified, uncomplicated; Z86.73 Personal history of transient ischemic attack (TIA), and cerebral infarction without residual deficits; E11.9 Type 2 diabetes mellitus without complications; G40.909 Epilepsy, unspecified, not intractable, without status epilepticus; I10 Essential (primary) hypertension; G89.29 Other chronic pain; R00.1 Bradycardia, unspecified
CPT/HCPCS: 36415; 71045; 80053; 82803; 83880; 84484; 85025; 85379; 93005; 96361; 96374; 99284; J7030; U0002

== ENCOUNTER 2020-04-24 18:53 | Inpatient (IN) | payer MEDICARE, MEDICAID ==
[~2020-04-24] VITALS: Ht 167.6 cm; Wt 55.5 kg
--- NOTE | 2020-04-24 19:05 | NUR ---
ED Nurse Note: Recieved pt in bed having right jugular peripheral IV line being inserted by , pt is in SVT with heart rate of 189, pt is awake, alert and oriented x 4, pt was just BIBA from home wioth c/o "feeling like having a seizxure" x 4 days, pt has hx of SZ, no SZ activity noted, line immediately palced, labs drawn and adenosine given with immeditate results, heart rate decreased to 94, pt tolerated well, remains on cardiac monitoring, will resume care as ordered and continue to closely monitor.
[2020-04-24] MEDS ORDERED: Adenosine 6mg/2ml Inj ONE (19:06)
[2020-04-24] MEDS ORDERED: Adenosine 6mg/2ml Inj IVP ONE (19:15)
--- NOTE | 2020-04-24 19:18 | Emergency Room Report ---
History of Present Illness General Chief Complaint: General Complaint Source: Patient, EMS Present Illness HPI Patient is a 65-year-old female presents for increased seizure activity as well as increased generalized weakness. Reports having prior history of CVA as well as recent coronavirus infection. Had been having increased palpitations since being brought in by EMS. Had prior history of CVA. Denies any drug use. Had prior seizure episode. 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 COVID-19 Screening: Negative COVID-19 COVID-19 Testing Source: clinic Patient History Now: No Reviewed Nursing Documentation: PMH: Agreed; PSxH: Agreed Nursing Documentation-PMH Hx Cardiac Problems: Yes - stroke, renal failure, substance abuse Hx Hypertension: Yes Hx Pacemaker: No Hx Asthma: Yes Hx COPD: Yes Hx Diabetes: Yes Hx Cancer: No Hx Gastrointestinal Problems: Yes - DIVERTICULITS, FISTULA Hx Neurological Problems: Yes - 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 Hx Cerebrovascular Accident: Yes Hx Transient Ischemic Attacks: No Hx Dementia: No Hx Alzheimer's Disease: No Hx Parkinson's Disease: No Hx Meningitis: No Hx Encephalitis: No Hx Seizures: Yes Hx Epilepsy: No Hx Multiple Sclerosis: No Hx Cerebral Palsy: No Hx Amyotrophic Lat Sclerosis: No Hx Guillian-[place] Syndrome: No Hx Paralysis: No Hx Peripheral Neuropathy: No Hx Spinal Cord Injury: No Hx Head Trauma: No Hx Traumatic Brain Injury: No Hx Memory Loss: No Hx Concentration Difficulty: No Hx Speech Problem: No Hx Tremors: No Hx Vertigo: No Hx Dizziness: No Hx Syncope: No Hx Headaches: No Hx Aphasia: No Hx Dysphasia: No Hx Numbness: No Hx Weakness: Yes Hx Fatigue: No Hx Neurologic Surgery: No Hx Brain Shunt: No Review of Systems All Other Systems: negative except mentioned in HPI Physical Exam Vital Signs Date Time Temp Pulse Resp B/P (MAP) Pulse Ox O2 Delivery O2 Flow Rate FiO2 04/24/20 18:55 99.0 97 19 154/89 (110) 98 Room Air Sp02 EP Interpretation: reviewed, normal General Appearance: normal inspection, well appearing, no apparent distress, alert, GCS 15 Head: atraumatic ENT: normal ENT inspection, hearing grossly normal, normal voice Neck: normal inspection, full range of motion, supple, no bony tend Respiratory: normal inspection, lungs clear, normal breath sounds, no respiratory distress, no retraction, no wheezing Cardiovascular #1: no edema, tachycardia Gastrointestinal: normal inspection, normal bowel sounds, non tender, soft, no guarding, no hernia Genitourinary: no CVA tenderness Musculoskeletal: normal inspection, back normal, normal range of motion Neurologic: alert, motor strength/tone normal, bedspread folder III-XII nml as tested, oriented x3, responsive, speech normal, normal inspection Psychiatric: normal inspection, judgement/insight normal, mood/affect normal Procedures Critical Care Time Critical Care Time Patient had a critical medical condition which untreated could potentially resu lt in life or limb threatening injury. Total critical care time excluding procedures approximately 45 minutes. Medical Decision Making Diagnostic Impression: Primary Impression: COVID-19 Additional Impressions: Supraventricular tachycardia CVA (cerebral vascular accident) Status post stroke ER Course Patient presented for palpitations and possible seizure. Differential diagnosis include was not limited to myocardial infarction, overdose, cocaine abuse, arrhythmia among others. Because of complexity of patient's case laboratory tests and imaging studies were ordered. Patient's initial EKG showed supraventricular tachycardia with a rate of 167. Patient had reportedly had some prior history of cocaine abuse. She does deny drug use at this time. Patient was given adenosine 6 mg with conversion of tachycardia to a sinus rhythm with a rate approximately 100. Patient was given Ativan due to anxiety a nd possible drug ingestion.Patient's laboratory testing showed positive coronavirus testing. Oxygen saturation continued to be okay. Dr. Warren Fall was contacted for inpatient management due to panel physician and he agreed accept the patient. Labs Test 04/24/20 19:20 04/24/20 19:43 White Blood Count 11.5 K/UL (4.8-10.8) Red Blood Count 3.62 M/UL (4.20-5.40) Hemoglobin 10.6 G/DL (12.0-16.0) Hematocrit 33.3 % (37.0-47.0) Mean Corpuscular Volume 92 FL (80-99) Mean Corpuscular Hemoglobin 29.3 PG (27.0-31.0) Mean Corpuscular Hemoglobin Concent 31.8 G/DL (32.0-36.0) Red Cell Distribution Width 12.2 % (11.6-14.8) Platelet Count 423 K/UL (150-450) Mean Platelet Volume 6.0 FL (6.5-10.1) Neutrophils (%) (Auto) 54.7 % (45.0-75.0) Lymphocytes (%) (Auto) 35.0 % (20.0-45.0) Monocytes (%) (Auto) 7.0 % (1.0-10.0) Eosinophils (%) (Auto) 1.4 % (0.0-3.0) Basophils (%) (Auto) 1.9 % (0.0-2.0) Urine Color Pale yellow Urine Appearance Clear Urine pH 6.5 (4.5-8.0) Urine Specific [place] 1.005 (1.005-1.035) Urine Protein 1+ (NEGATIVE) Urine Glucose (UA) Negative (NEGATIVE) Urine Ketones Negative (NEGATIVE) Urine Blood Negative (NEGATIVE) Urine Nitrite Negative (NEGATIVE) Urine Bilirubin Negative (NEGATIVE) Urine Urobilinogen Normal MG/DL (0.0-1.0) Urine Leukocyte Esterase 1+ (NEGATIVE) Sodium Level 136 MMOL/L (136-145) Potassium Level 4.5 MMOL/L (3.5-5.1) Chloride Level 103 MMOL/L (98-107) Carbon Dioxide Level 24 MMOL/L (21-32) Anion Gap 9 mmol/L (5-15) Blood Urea Nitrogen 11 mg/dL (7-18) Creatinine 1.2 MG/DL (0.55-1.30) Estimat Glomerular Filtration Rate 54.9 mL/min (>60) Glucose Level 104 MG/DL (74-106) Calcium Level 9.8 MG/DL (8.5-10.1) POC Whole Blood Glucose 92 MG/DL (74-106) EKG Diagnostic Results Rate: tachycardiac Rhythm: other - Supraventricular tachycardia ST Segments: no acute changes Rhythm Strip Diag. Results EP Interpretation: yes Rhythm: no PVC's, no ectopy, other - svt 170s Last Vital Signs Date Time Temp Pulse Resp B/P (MAP) Pulse Ox O2 Delivery O2 Flow Rate FiO2 04/24/20 18:55 99.0 97 19 154/89 (110) 98 Room Air Status: improved Disposition: ADMITTED INPATIENT Condition: Stable Scripts Metoprolol Succinate* (METOPROLOL SUCCINATE*) 50 Mg Tab.er.24h 50 MG ORAL DAILY for 30 Days, #30 TAB Prov: Warren Fall MD 04/26/20 Emil Rajan MD Apr 24, 2020 19:18
[2020-04-24] MEDS ORDERED: LORazepam Inj 2mg/ml 1ml IV ONE (19:30)
[2020-04-24 19:40] VITALS: BP 147/86
--- NOTE | 2020-04-24 19:45 | NUR ---
ED Nurse Note: Pt continues to rest awake and alert, meds given effective, ativan has calmed pt and heart rate remains in NSR, no sob or labored breathing, o2 sat=98% on RA, tolerating well, pt constantly asking for norco pain meds for chronic left side pain from old cva, MD aware, pt is to be admitted, pt on Covid precautions and seizure precautions with isolation and side rails padded, will continue to closely monitor and prepare for admission.
[2020-04-24 19:46] LABS: BASOPHILS % (AUTO) 1.9 % (0.0-2.0); EOSINOPHILS % (AUTO) 1.4 % (0.0-3.0); HEMATOCRIT 33.3 % (37.0-47.0); HEMOGLOBIN 10.6 G/DL (12.0-16.0); MEAN CORPUSCULAR VOLUME 92 FL (80-99); NEUTROPHILS % (AUTO) 54.7 % (45.0-75.0); PLATELET COUNT 423 K/UL (150-450); RED BLOOD COUNT 3.62 M/UL (4.20-5.40); RED CELL DISTRIBUTION WIDTH 12.2 % (11.6-14.8); WHITE BLOOD COUNT 11.5 K/UL (4.8-10.8)
[2020-04-24 19:58] LABS: APPEARANCE,URINE CLEAR; BILIRUBIN, URINE NEGATIVE (NEGATIVE); COLOR,URINE PALE YELLOW; GLUCOSE, URINE (UA) NEGATIVE (NEGATIVE); KETONES,URINE NEGATIVE (NEGATIVE); LEUKOCYTE ESTERASE ,URINE 1+ (NEGATIVE); NITRITE,URINE NEGATIVE (NEGATIVE); PH,URINE 6.5 (4.5-8.0); PROTEIN,URINE 1+ (NEGATIVE); UROBILINOGEN,URINE NORMAL MG/DL (0.0-1.0)
[2020-04-24 20:04] LABS: ANION GAP 9 mmol/L (5-15); BLOOD UREA NITROGEN 11 mg/dL (7-18); CALCIUM 9.8 MG/DL (8.5-10.1); CARBON DIOXIDE 24 MMOL/L (21-32); CHLORIDE 103 MMOL/L (98-107); CREATININE 1.2 MG/DL (0.55-1.30); POTASSIUM 4.5 MMOL/L (3.5-5.1); SODIUM 136 MMOL/L (136-145)
[2020-04-24 20:10] LABS: CREATINE KINASE 56 U/L (26-308)
[2020-04-24 20:14] LABS: ALANINE AMINOTRANSFERASE 20 U/L (12-78); ALBUMIN 3.7 G/DL (3.4-5.0); ALKALINE PHOSPHATASE 144 U/L (46-116); ASPARTATE AMINO TRANSFERASE 11 U/L (15-37); BILIRUBIN,TOTAL 0.2 MG/DL (0.2-1.0)
[2020-04-24 20:25] VITALS: BP 129/73
[2020-04-24] MEDS ORDERED: Nitroglycerin Subl 0.4mg tab SL PRN (20:30)
[2020-04-24] MEDS ORDERED: Milk of Magnesia 30ml Ud ORAL PRN (20:30)
[2020-04-24 20:40] VITALS: BP 129/73
--- NOTE | 2020-04-24 20:45 | NUR ---
ED Nurse Note: Pt remains in bed awake and alert, no changes or increased distress, remains in NSR, no sob, pt is being admitted, report called to floor nurse, swabs collected and sent, med rec completed and pt has all belongings with list done, pt being taken to floor unit via gurney with ACLS protocols and under Covid precautions, nad noted during pt transport to floor bed.
[2020-04-24 20:54] LABS: FERRITIN 63 NG/ML (8-388); LACTATE DEHYDROGENASE 173 U/L (81-234)
--- NOTE | 2020-04-24 21:30 | NUR ---
NURSE NOTES: Pt arrived via gurney from ED. Got report from Gem HAMEED. Initial assessment done. Pt is A+Ox4 forgetful. Denies any pain or discomfort. Denies any n/v or SOB. Pt is ambulatory steady weakness noted. VSS T:97.7 P:94 R:20 BP:147/87 O2:98% on room air. Pt is COV+ swabbed in the ED 04/24/20. Pt is continent uses bedside commode. Pt has L neck jugular IV w/ 1/2NS 20meQ KCl@50 patent and intact. No skin issues noted. Belongings list verified. monitoring engineer placed on pt running Sinus Rhythm. Pt resting in bed comfortably. Pt made aware of surroundings and call light. Bed in low and locked position, call light within reach, bedside table within reach. Continue to monitor. Orders placed by Dr. Fall.
[2020-04-24] MEDS: Montelukast 10mg tablet ORAL SCH (22:00)
[2020-04-24] MEDS ORDERED: 1/2NS w/KCl 20mEq 1000ml 1,000 ML IV SCH (22:00)
[2020-04-24] MEDS: Heparin 5000 units/ml inj SUBQ SCH (22:00)
[2020-04-24 22:30] VITALS: BP 147/87
[2020-04-25] VITALS: BP 116/72
[2020-04-25 04:00] VITALS: BP 150/82
[2020-04-25 04:31] LABS: BASOPHILS % (AUTO) 1.9 % (0.0-2.0); EOSINOPHILS % (AUTO) 1.5 % (0.0-3.0); HEMATOCRIT 30.8 % (37.0-47.0); HEMOGLOBIN 9.9 G/DL (12.0-16.0); MEAN CORPUSCULAR VOLUME 92 FL (80-99); MONOCYTES % (AUTO) 5.5 % (1.0-10.0); NEUTROPHILS % (AUTO) 56.2 % (45.0-75.0); PLATELET COUNT 321 K/UL (150-450); RED BLOOD COUNT 3.36 M/UL (4.20-5.40); RED CELL DISTRIBUTION WIDTH 12.1 % (11.6-14.8); WHITE BLOOD COUNT 9.2 K/UL (4.8-10.8)
[2020-04-25 04:57] LABS: ALANINE AMINOTRANSFERASE 17 U/L (12-78); ALBUMIN 3.3 G/DL (3.4-5.0); ALKALINE PHOSPHATASE 126 U/L (46-116); ANION GAP 6 mmol/L (5-15); ASPARTATE AMINO TRANSFERASE 12 U/L (15-37); BILIRUBIN,TOTAL 0.3 MG/DL (0.2-1.0); BLOOD UREA NITROGEN 12 mg/dL (7-18); CARBON DIOXIDE 25 MMOL/L (21-32); CHLORIDE 105 MMOL/L (98-107); CHOLESTEROL 137 MG/DL (< 200); CREATINE KINASE 31 U/L (26-308); CREATININE 1.1 MG/DL (0.55-1.30); HDL CHOLESTEROL 72 MG/DL (40-60); PHOSPHORUS 3.2 MG/DL (2.5-4.9); POTASSIUM 4.4 MMOL/L (3.5-5.1); SODIUM 136 MMOL/L (136-145); TRIGLYCERIDES 42 MG/DL (30-150)
--- NOTE | 2020-04-25 06:00 | NUR ---
Informed Dr. of M.4. Awaiting response. Pt in stable condition. Continue to monitor.
--- NOTE | 2020-04-25 07:10 | NUR ---
NURSE HAND-OFF REPORT: Important Events on Shift: Patient Status: STABLE Diet: REGULAR Pending Orders: LABS AM Pending Results/Labs: Pending MD notification: Latest Vital Signs: Temperature 97.5 , Pulse 58 , B/P 150 /82 , Respiratory Rate 20 , O2 SAT 95 , Room Air, O2 Flow Rate . Vital Sign Comment: EKG Rhythm: Sinus Rhythm Rhythm change?: N MD Notified?: - MD Response: Latest Ritter Fall Score: 30 Fall Risk: Medium Risk Safety Measures: Call light , Bed Alarm , Side Rails Side Rails x2, Bed position . Fall Precautions: Report given to CRISTEL HAMEED.
--- NOTE | 2020-04-25 07:36 | NUR ---
NURSE NOTES: Received pt from Sawyer HAMEED. Pt in bed resting. Bed low and locked. No distress, sob noted. She states she is cold, I munir get her extra blankets shortly. Call light within reach.
[2020-04-25 08:00] VITALS: BP 140/80
[2020-04-25] MEDS: Aspirin Baby 81mg ORAL SCH (09:41)
[2020-04-25] MEDS: ALPRAZolam 0.25mg tab ORAL PRN ×2 (09:49→20:44)
--- NOTE | 2020-04-25 10:12 | Diagnostic Imaging Report ---
. Indication: Chest pain Technique: One view of the chest Comparison: 04/07/2020 Findings: No acute infiltrates, effusions, or congestion. Tortuous calcified aorta. Normal heart size. Upper mediastinum unremarkable. Surgical clips project in the upper abdomen No significant change Impression: No acute process.
[2020-04-25] MEDS: Heparin 5000 units/ml inj SUBQ SCH ×2 (10:22→20:39)
--- NOTE | 2020-04-25 10:27 | NUR ---
NURSE NOTES: Dr. Fall informed about low mag and 2d echo results. NNO
--- NOTE | 2020-04-25 11:16 | Consultation ---
Consult Note Consult Note Cardiac EP #[id number] Full consult dictated Joanna Johnston MD Apr 25, 2020 11:16
--- NOTE | 2020-04-25 11:45 | History and Physical Report ---
DATE OF ADMISSION: 04/24/2020 CHIEF COMPLAINT AND REASON FOR ADMISSION: The patient admitted with supraventricular tachycardia. HISTORY OF PRESENT ILLNESS: The patient has a history of prior CVA , cigarette smoking, prior use of cocaine and a history of seizure disorder. She presented to the emergency room with generalized weakness and had supraventricular tachycardia, converted to sinus rhythm with adenosine. She had a COVID-19 test positive approximately 04/07/2020 and was still positive in the emergency room on 04/24/2020 but she has not had any shortness of breath, fever, chills or other signs of COVID. She has not had any treatment for COVID. PAST SURGICAL HISTORY: Some abdominal surgery in the past, she cannot remember the reason. ALLERGIES: None known. HOME MEDICATIONS: Reviewed on the computer. The patient is a poor historian. They include Xanax 0.5 t.i.d. p.r.n., Norvasc 10 mg daily, Neurontin 600 mg b.i.d., Lamictal 50 mg at bedtime, Keppra 750 b.i.d., Singulair 10 mg daily. HABITS: She is a current smoker, says she is cutting down. She uses cocaine intermittently, states none recently. No alcohol. No injectable drugs. 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 SYSTEM REVIEW: HEAD, EYES, EARS, NOSE, THROAT: Vision and hearing is good. ENDOCRINE: No diabetes or thyroid disease. PULMONARY: History of cigarette smoking. No current shortness of breath or productive cough. CARDIAC: See history of present illness. GASTROINTESTINAL: No gastrointestinal bleeding, ulcers, or abdominal pain. GENITOURINARY: No dysuria, hematuria. MUSCULOSKELETAL: She walks for a short distances, uses of cane not a walker. She complains of generalized pain. NEUROLOGIC: History of CVA, right-sided weakness, history of seizures, had several emergency room visits in the past year. PHYSICAL EXAMINATION: GENERAL: The patient is alert, thin lady, in no acute distress. VITAL SIGNS: Temperature 97.2, pulse 73, blood pressure 140/80, pulse ox 98%. HEAD, EYES, EARS, NOSE, AND THROAT: Sclerae are nonicteric. Ocular motions intact in all directions. Oral mucosa is moist. NECK: No adenopathy or thyroid enlargement. LUNGS: Clear. HEART: Regular rhythm. No murmur. ABDOMEN: Soft without organomegaly or masses. EXTREMITIES: No edema, cyanosis, or clubbing. NEUROLOGIC: She is alert with clear speech. Ocular motions intact in all directions. Smile is symmetric. Tongue is midline. She moves all extremities. There is some residual right-sided weakness about 4/5. LABORATORY AND DIAGNOSTIC DATA: Pertinent labs show normal electrolytes. Troponin is 0. BNP 493. Albumin 3.3. Cholesterol 137, hemoglobin is 9.9, white count 9.2. IMPRESSION: 1. Supraventricular tachycardia. 2. History of old CVA, right-sided weakness. 3. History of seizures. 4. Prior use of cocaine. Drug screen negative on this admission. 5. COVID-19 positive, asymptomatic. PLAN: We will observe on telemetry unit. her amlodipine to be held right now as her blood pressure tends to be low and put her on metoprolol and watch her closely in view of her comorbidities. Warren Fall M.D. DR: Judy JOB#: [id number] CC:
[2020-04-25 12:00] VITALS: BP 140/70
--- NOTE | 2020-04-25 12:45 | Consultation ---
DATE OF CONSULTATION: 04/25/2020 CARDIAC ELECTROPHYSIOLOGY CONSULTATION CONSULTING PHYSICIAN: Joanna Johnston MD. REASON FOR CONSULT: Supraventricular tachycardia. HISTORY OF PRESENT ILLNESS: The patient is a 65-year-old woman with a history of COPD, asthma, tobacco use, and previous CVA. She was brought to the emergency room on 04/24/2020 with weakness and reported seizure activity. She complained of palpitations. In the ER, her initial pulse was reported at 97, blood pressure 154/89, and oxygen saturation 98%. During the visit, in the ER, she developed supraventricular tachycardia. EKG shows a narrow complex tachycardia at 167 beats per minute. This terminated with intravenous adenosine. She was admitted for further treatment. She is currently COVID positive and reports being COVID positive for past two weeks. MEDICATIONS: Magnesium 1 g Iv X1, aspirin 81 mg daily, Keppra 750 mg q.12 hours, Singulair 10 mg nightly, Lamictal 50 mg nightly, gabapentin 600 mg twice a day, metoprolol 25 mg q.12 hours, subcutaneous heparin 5000 units q.12 hours, Xanax 0.5 mg q.8 hours p.r.n., and Tylenol p.r.n. ALLERGIES: No known drug allergies. PAST MEDICAL HISTORY: As noted above, history of seizures, previous CVA, hypertension, and diverticulitis. SOCIAL HISTORY: Tobacco, currently 10 cigarettes per day. Denies alcohol or current drug use. Per history has a previous history of cocaine use. PHYSICAL EXAMINATION: VITAL SIGNS: Blood pressure is 140/80, pulse 73 and regular, respirations 20, and afebrile. Oxygen saturation 98% on room air. GENERAL: Alert, thin woman, in no acute distress. Occasional nonproductive cough. HEENT: Normocephalic and atraumatic. Pupils are equal, round, and reactive to light. Sclerae anicteric. NECK: Supple. There is no jugular venous distention. No carotid bruits. LUNGS: Decreased breath sounds bilaterally. No rales or wheezes. HEART: Regular, S1 and S2 with no murmurs or S3. ABDOMEN: Soft, nontender. No palpable mass. EXTREMITIES: No cyanosis, clubbing, or edema. SKIN: No rashes or lesions. LABORATORY DATA: Hemoglobin 9.9, hematocrit 30.8, white blood count 9200. Sodium 136, potassium 4.4, chloride 105, bicarb 25, BUN 12, and creatinine 1.1. Troponin 0.001. EKG on admission showed supraventricular tachycardia, no visible P waves versus possible P-waves at end of QRS and V1 to V3 and aVF (pseudo R and pseudo S waves respectively), rate 167 beats per minute. Voltage criteria for left ventricular hypertrophy. Telemetry has subsequently shown normal sinus rhythm, rates in the 60s to 90s. IMAGING STUDIES: Chest x-ray shows no cardiomegaly, infiltrates, or effusions. ASSESSMENT AND RECOMMENDATIONS: The patient is a 65-year-old woman with history of hypertension, previous CVA, tobacco use, chronic obstructive pulmonary disease and seizure disorder, who is admitted with possible seizures and is COVID positive (for past 2 weeks.) She was in supraventricular tachycardia in the emergency room which responded to intravenous adenosine. 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 I would agree with treatment with beta-blockers and would consider her for electrophysiologic testing and radiofrequency catheter ablation once cleared from an infectious disease standpoint. The electrophysiologic testing and ablation may be done as an outpatient provided she remains stable without further arrhythmias in the hospital. Thank you for allowing me to see her in electrophysiology consultation. I will be happy to follow her with you. Joanna Johnston M.D. DR: HARSHAL JOB#: [id number] CC:
--- NOTE | 2020-04-25 15:03 | NUR ---
CASE MANAGEMENT:REVIEW 65 YR OLD FEMALE BIBA FROM HOME CC; FEELS LIKE SHE IS GETTING READY TO HAVE A SEIZURE PMH: SEIZURES. S/P CVA SI: SVT 99.0 189 19 154/89 98% ON RA WBC+11.5 H/H-10.6/33.3 IS: IV ADENOSINE IV ATIVAN COVID SWAB : TO TELEMETRY COVID (+)
[2020-04-25 16:00] VITALS: BP 137/76
--- NOTE | 2020-04-25 19:13 | NUR ---
NURSE HAND-OFF REPORT: Important Events on Shift:[Mag low this morning 4 bags of 1gm given. slight anxiety this morning, xanax given and effective. weakness to right side noted.] Patient Status: [in bed stable watching tv, no distress or pain] Diet: [regular] Pending Orders: [] Pending Results/Labs:[] Pending MD notification:[] Latest Vital Signs: Temperature 98.0 , Pulse 58 , B/P 137 /76 , Respiratory Rate 18 , O2 SAT 97 , Room Air, O2 Flow Rate . Vital Sign Comment: [Stable] EKG Rhythm: Sinus Bradycardia Rhythm change?: N MD Notified?: - MD Response: Latest Ritter Fall Score: 30 Fall Risk: Medium Risk Safety Measures: Call light Within Reach, Bed Alarm Zone 1, Side Rails Side Rails x2, Bed position Low and Locked. Fall Precautions: Yellow Socks Patient Fall Education Report given to [Syed Jacobo RN].
--- NOTE | 2020-04-25 19:15 | NUR ---
NURSE NOTES: Patient received from YOSEPH Caro. Patient is awake, alert and oriented x 4. Patient is currently watching TV and has no complaints, asked for her phone to be charged. Patient is has a left external jugular 20 gauge, patent and flushed. Patient is on room air. Bed is in the lowest position, call light within reach. Will continue to monitor.
[2020-04-25 20:00] VITALS: BP 130/77
[2020-04-25] MEDS: Montelukast 10mg tablet ORAL SCH (20:40)
[2020-04-26 00:50] VITALS: BP 146/79
[2020-04-26 04:00] VITALS: BP 128/61
[2020-04-26 07:24] LABS: BASOPHILS % (AUTO) 1.6 % (0.0-2.0); EOSINOPHILS % (AUTO) 2.7 % (0.0-3.0); HEMOGLOBIN 10.2 G/DL (12.0-16.0); LYMPHOCYTES % (AUTO) 32.2 % (20.0-45.0); MEAN CORPUSCULAR VOLUME 90 FL (80-99); MONOCYTES % (AUTO) 5.5 % (1.0-10.0); PLATELET COUNT 399 K/UL (150-450); RED BLOOD COUNT 3.43 M/UL (4.20-5.40); RED CELL DISTRIBUTION WIDTH 12.5 % (11.6-14.8); WHITE BLOOD COUNT 8.7 K/UL (4.8-10.8)
--- NOTE | 2020-04-26 07:37 | NUR ---
NURSE HAND-OFF REPORT: Important Events on Shift:[] Patient Status: [] Diet: [Regular diet] Pending Orders: [] Pending Results/Labs:[] Pending MD notification:[] Latest Vital Signs: Temperature 97.9 , Pulse 68 , B/P 128 /61 , Respiratory Rate 20 , O2 SAT 95 , Room Air, O2 Flow Rate . Vital Sign Comment: [] EKG Rhythm: Sinus Bradycardia Rhythm change?: Y MD Notified?: N - MD Response: Latest Ritter Fall Score: 30 Fall Risk: Medium Risk Safety Measures: Call light Within Reach, Bed Alarm Zone 1, Side Rails Side Rails x2, Bed position Low and Locked. Fall Precautions: Yellow Socks Patient Fall Education Report given to [YOSEPH Turner].
[2020-04-26 07:49] LABS: % IRON SATURATION 29 % (15-50); IRON 62 ug/dL (50-175); TOTAL IRON BINDING CAPACITY 212 ug/dL (250-450)
[2020-04-26 07:53] LABS: CALCIUM 10.3 MG/DL (8.5-10.1); CREATININE 1.2 MG/DL (0.55-1.30); POTASSIUM 4.4 MMOL/L (3.5-5.1)
[2020-04-26 08:00] VITALS: BP 142/80
[2020-04-26] MEDS: Aspirin Baby 81mg ORAL SCH (08:20)
[2020-04-26] MEDS: Heparin 5000 units/ml inj SUBQ SCH (08:21)
[2020-04-26] MEDS: ALPRAZolam 0.25mg tab ORAL PRN (08:42)
--- NOTE | 2020-04-26 11:04 | NUR ---
NURSE NOTES: Patient received from YOSEPH Wadsworth. Patient is awake, alert and oriented x 4. Pt has a left EJ 20g that is patent and locked. Patient is on room air with no sign of sob or resp distress. Bed is in the lowest position, call light within reach. Will continue to monitor.
[2020-04-26 11:52] VITALS: BP 138/79
--- NOTE | 2020-04-26 11:56 | NUR ---
DISCHARGE PLANNING SPOKE WITH PATIENT VIA TELEPHONE PLAN IS FOR HER TO RETURN HOME. PER PATIENT HER CAREGIVER MARLENE IS AWARE SHE IS COVID POSITIVE AND WILL CONTINUE TO CARE FOR HER ONCE SHE GETS HOME. PATIENT IS REQUESTING A REFILL FOR HER XANAX AND GABAPENTIN. ABOVE INFORMATION DISCUSSED WITH BED SIDE NURSE PATIENT WILL NEED TO BE TRANSPORTED HOME VIA AMBULANCE D/T COVID AWAIT DC ORDER AND PRESCRIPTIONS
[2020-04-26] MEDS ORDERED: METOPROLOL SUCC50 MG ORAL (12:54)
--- NOTE | 2020-04-26 14:54 | NUR ---
NURSE NOTES: DC order per DR Fall, perscriptions sent to [facility] for filling. called [facility] to set up transport as patient is covid +. 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
--- NOTE | 2020-04-26 14:56 | NUR ---
NURSE NOTES: EJ was removed and pressure applied to site, band removed
[2020-04-26 16:00] VITALS: BP 130/75
[2020-04-26] MEDS ORDERED: NS 275ml ONE (17:44)
[2020-04-26] MEDS ORDERED: Tubing IV Secondary IV ONE (17:44)
--- NOTE | 2020-04-26 23:00 | Discharge Summary ---
DATE OF ADMISSION: 04/24/2020 DATE OF DISCHARGE: 04/26/2020 PERTINENT HISTORY: The patient is a 65-year-old lady with a history of prior CVA, current cigarette smoker, prior use of cocaine, history of seizure disorder. She presented to the emergency room with generalized weakness and had an episode of supraventricular tachycardia, which converted to sinus rhythm with adenosine. She had a COVID-19 test positive on 04/07/2020 and was still positive in the emergency room, but no shortness of breath. Fever chills or abnormal chest x-ray. PERTINENT PHYSICAL FINDINGS: See the dictated H and P. LUNGS: Clear. HEART: Regular rhythm. No murmur. ABDOMEN: Soft without organomegaly. EXTREMITIES: No edema. NEUROLOGIC: She is alert with clear speech. There is some residual right-sided weakness. COURSE IN THE HOSPITAL: The patient was observed and had no further arrhythmia. She was placed on metoprolol. She had a mild anemia with borderline iron studies, and she had a low magnesium and was given intravenous magnesium and her magnesium level improved. Troponin was 0.001. She had no further symptoms and was discharged in a stable condition. She was seen in cardiac consultation and outpatient followup can be done. FINAL DIAGNOSES: 1. Supraventricular tachycardia. 2. History of prior CVA. 3. History of seizure disorder. 4. Anemia, possible anemia of chronic disease. 5. COPD. DISCHARGE DISPOSITION: The patient is discharged home on a regular diet as tolerated and metoprolol extended release 50 mg daily, and her Xanax 0.5 mg t.i.d. p.r.n., Keppra 750 mg b.i.d., Lamictal 50 mg at bedtime, Singulair 10 mg daily, gabapentin 600 mg b.i.d. Her prior amlodipine is discontinued at this time. Follow up with her prior physician. She is welcome to see Dr. Fall if needed. Warren Fall M.D. DR: ARPITA JOB#: [id number] CC:
== END 2020-04-26 17:45 | disposition home or self-care (01) | DRG 308 ==
LOC: EDBD 18:53 → EMR 19:08 → 2E 19:45 → EDBEDREQ 20:29
DX: I47.1 Supraventricular tachycardia (principal); U07.1 COVID-19; I69.351 Hemiplegia and hemiparesis following cerebral infarction affecting right dominant side; G40.909 Epilepsy, unspecified, not intractable, without status epilepticus; F14.11 Cocaine abuse, in remission; F17.200 Nicotine dependence, unspecified, uncomplicated; J44.9 Chronic obstructive pulmonary disease, unspecified; I10 Essential (primary) hypertension; D64.9 Anemia, unspecified
CPT/HCPCS: 36415; 71045; 80048; 80053; 80061; 80307; 81003; 82550; 82607; 82728; 82962; 83540; 83550; 83615; 83735; 83880; 84100; 84443; 84484; 85025; 85379; 85610; 85730; 86140; 87081; 93005; 93306; 96374; 96375; 99291; G0480; U0002